=== PATIENT | male | born 1965 | race Caucasian/White ===

== ENCOUNTER 2021-02-26 06:05 | Emergency (ER) | payer BC, OTHER, SELFPAY ==
--- NOTE | ~2021-02-26 | XR_ITS ---
XR knee RT 3V DATE: 02/26/2021 06:30 INDICATION: Left knee pain TECHNIQUE: 4 views including crosstable lateral COMPARISON: None FINDINGS: There is evidence of mild suprapatellar knee joint effusion. No fracture or dislocation, periosteal reaction or bone destruction. Joint spaces are preserved. No r adiopaque intra-articular loose body or chondrocalcinosis. Prominent osteochondroma is noted in the medial diametaphyseal area of the distal femur. 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 IMPRESSION: Mild joint effusion Chronic stable osteochondroma of the medial diametaphyseal area of the distal f emur
[2021-02-26 06:03] VITALS: BP 123/88; PULSE 74; RESP 20; TEMP 36.4; O2SAT 100
--- NOTE | 2021-02-26 06:14 | ED.LOWEXIN ---
HPI - Extremity Injury (Lower) General Chief Complaint: Extremity Injury, Lower Stated Complaint: knee pain Time Seen by Provider: 02/26/21 06:09 History of Present Illness HPI Narrative: 55 yo male w/ h/o GILMA presents to the ED for a knee injury. He took a misstep while taking his dog out this morning and hyperextended his right knee. He fell to the ground and was not able to get himself up. He reports that the pain was 10/10. He received 4 mg morphine per EMS. On arrival the pain is improved, but still severe with movement. No additional pain or injury. Related Data Home Medications Medication Instructions Recorded Confirmed bupropion HCl 300 mg 24 hr tablet, 300 mg PO QAM 07/03/20 07/10/20 extended release clonazepam 0.5 mg tablet 0.5 mg PO BID tablet 07/10/20 07/10/20 duloxetine 30 mg PO DAILY 02/26/21 Allergies Allergy/AdvReac Type Severity Reaction Status Date / Time Penicillins Allergy Intermediate HIVES Verified 02/26/21 06:11 Review of Systems Review of Systems: All systems reviewed & are unremarkable except as noted in HPI and below Cardiovascular: Cardiovascular: Denies chest pain Respiratory: Respiratory: Denies dyspnea Gastrointestinal: Gastrointestinal: Denies nausea Musculoskeletal: Musculoskeletal: Denies back pain Psychiatric: Psychiatric: Reports anxiety PMFSH Past Medical History Medical History Intractable hiccups Family History Family History Father Hypertension Family history of genitourinary disease Family history of coronary artery disease Other Family history of gout Family history of malignant neoplasm Social History Social History Smoking status: Never smoker Second hand tobacco smoke exposure: No Alcohol intake: current Exam Const: General: healthy appearing, no acute distress and alert Orientation/consciousness: patient oriented x3 HENMT: Head: normal to inspection Resp: Effort & Inspection: normal respiratory effort Auscultation: clear to auscultation bilaterally Cardio: Rate: regular rate Rhythm: regular rhythm GI: GI Palp: Yes Soft to palpation and No Tenderness to palpation present (GI) Skin: General skin exam: normal color Wounds: no wounds Neuro: General: patient oriented x3, moves all extremities, no focal motor deficits and CN's II-XI intact bilaterally Extrem: Other: Tenderness at superior pole of the patella. No obvious deformity. Exam limited by pain. Psych: Affect: Anxious affect present Course Vital Signs Vital signs: Vital Signs Temperature 36.4 C L 02/26/21 06:03 Pulse Rate 74 02/26/21 06:03 Respiratory Rate 20 02/26/21 06:03 Blood Pressure 123/88 02/26/21 06:03 Pulse Oximetry 100 02/26/21 06:03 Temperature 36.4 C L 02/26/21 06:03 Pulse Rate 74 02/26/21 06:03 Respiratory Rate 20 02/26/21 06:03 Blood Pressure 123/88 02/26/21 06:03 Pulse Oximetry 100 02/26/21 06:03 Discharge Plan Discharge Clinical Impression: Acute internal derangement of knee Qualifiers: Laterality: right Qualified Code(s): M23.91 - Unspecified internal derangement of right knee Patient Disposition: Home, Self-Care Condition: Stable Instructions: Knee Sprain (ED) Prescriptions: New hydrocodone-acetaminophen 5-325 mg tablet 1 tablet PO Q6H PRN (Reason: pain) Qty: 10 RF: 0 cyclobenzaprine 10 mg tablet 10 mg PO TID PRN (Reason: muscle spasm) Qty: 20 RF: 0 No Action bupropion HCl [Wellbutrin XL] 300 mg tablet extended release 24 hr 300 mg PO QAM RF: 0 Hold Instructions: .Provider Order clonazepam 0.5 mg tablet 0.5 mg PO BID RF: 0 Hold Instructions: .Provider Order duloxetine 30 mg Capsule,Delayed Release(Dr/Ec) 30 mg PO DAILY RF: 0 Follow-up/Referrals: Guero Wharton Jr., MD [Primary
[2021-02-26 07:38] VITALS: BP 106/82; PULSE 79; RESP 16; O2SAT 99
== END 2021-02-26 07:35 | disposition home or self-care (01) ==
PROVIDERS: Emergency Provider Emergency Medicine; PCP Internal Medicine
DX: S83.207A Unspecified tear of unspecified meniscus, current injury, left knee, initial encounter (principal); D16.22 Benign neoplasm of long bones of left lower limb; X50.9XXA Other and unspecified overexertion or strenuous movements or postures, initial encounter
CPT/HCPCS: 73562; 99283

== ENCOUNTER → 2021-02-28 03:24 | Outpatient (CLI) | payer BC, SELFPAY ==
[2021-02-28 18:26] LABS: SARS-CoV-2 RNA PCR Negative
== END ==
PROVIDERS: PCP Internal Medicine; Visit Provider Orthopaedic Surgery
DX: Z01.812 Encounter for preprocedural laboratory examination (principal); Z20.822 Contact with and (suspected) exposure to COVID-19
CPT/HCPCS: C9803; U0003; U0005

== ENCOUNTER 2021-03-02 01:48 | Day surgery (SDC) | payer BC, OTHER, SELFPAY ==
[2021-02-27 13:44] VITALS: BMI 29.5
--- NOTE | 2021-02-28 12:12 | PM.IMHP ---
H&P: HPI History of Present Illness Date/Time: 02/28/21 12:12 55-year-old male patient of Dr Wharton who presents today for repair of his right quadriceps tendon rupture. He injured the quadriceps tendon on Friday of this week early in the morning. He was outside his house walking the dog. His foot fell off the edge of the sidewalk causing him to stumble full word. He states that he felt like his right knee hyperextended and he fell the ground excruciating pain. He was seen later that day in the office. After initial evaluation patient was sent for an MRI scan. MRI scan did confirm that patient has a high-grade tear of the right quadriceps tendon. He presents today for surgical repair of the tendon. 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 CPAP PTSD (post-traumatic stress disorder) <RAHEL Cabrales - Last Filed: 02/28/21 12:20> Family History Family History: Family History Father Hypertension Family history of genitourinary disease Family history of coronary artery disease Other Family history of gout Family history of malignant neoplasm <RAHEL Cabrales - Last Filed: 02/28/21 12:20> Social History Social History: Social History Smoking status: Never smoker Second hand tobacco smoke exposure: No Alcohol intake: current Drinks per week: 2 Substance use: never Substance use type: does not use Living arrangements: with family Spiritual care concerns: No <RAHEL Cabrales - Last Filed: 02/28/21 12:20> Meds Home Medications and Allergies Home medications: Home Medications Medication Instructions Recorded Confirmed Type bupropion HCl 300 mg 24 hr tablet, 300 mg PO DAILY 07/03/20 03/02/21 History extended release clonazepam 0.5 mg tablet 0.5 mg PO TID tablet 07/10/20 03/02/21 History cyclobenzaprine 10 mg PO TID PRN #20 tablet 02/26/21 02/27/21 Rx duloxetine 30 mg PO DAILY 02/26/21 03/02/21 History multivitamin 1 tablet PO DAILY 02/27/21 03/02/21 History acetaminophen 1,000 mg PO Q6H #90 cap 03/02/21 Rx cephalexin 500 mg PO Q6H #4 cap 03/02/21 Rx oxycodone 5 mg PO Q4H PRN #40 tablet 03/02/21 Rx polyethylene glycol 3350 [Miralax] 17 gm PO DAILY #30 each 03/02/21 Rx sennosides-docusate sodium [Senna 2 tab-cap PO BID PRN #120 cap 03/02/21 Rx Plus] <RAHEL Cabrales - Last Filed: 02/28/21 12:20> Allergies/Adverse reactions: Allergies Allergy/AdvReac Type Severity Reaction Status Date / Time No Known Allergies Allergy Verified 03/02/21 13:22 <RAHEL Cabrales - Last Filed: 02/28/21 12:20> Exam Narrative: Exam Narrative: 55-year-old male alert pleasant. He is 5 ft 8. he is in moderate distress due to pain in the knee. His pain is in the distal anterior 1/2 of the thigh. He is only able to flex the knee to about 30? and at that time complains of severe pain. He has moderate tenderness over the rectus femoris and severe tenderness over the distal quadriceps tendon. This area is soft on palpation. He has a mild effusion in the knee itself. No significant mediolateral joint line tenderness in the knee. Hip range of motion causes him no discomfort. He has intact sensation to the right foot. He has good pedal pulses in the foot. No edema in the calf. <RAHEL Cabrales Last Filed: 02/28/21 12:20> Resp: Auscultation: clear to auscultation bilaterally <RAHEL Cabrales - Last Filed:
--- NOTE | 2021-03-01 09:53 | WPDANESEPPF ---
Anes - Initial Pre Proc Eval Procedure: Operation Date: 03/02/21 13:00 Proposed Procedures p Right Quadriceps Tendon Rupture Repair - Gregory Blackwell MD Date/Time: 03/01/21 09:53 Surgeon: Gregory Blackwell MD Pre Op Diagnosis: right quadricep tendon rupture Patient Data Age: 55 Gender: M Height: 1.75 m Weight: 90.7 kg Allergies Allergy/AdvReac Type Severity Reaction Status Date / Time Penicillins Allergy Intermediate HIVES Verified 02/27/21 13:42 Home Medications Medication Instructions Recorded Confirmed Type bupropion HCl 300 mg 24 hr tablet, 300 mg PO DAILY 07/03/20 02/27/21 History extended release clonazepam 0.5 mg tablet 0.5 mg PO TID tablet 07/10/20 02/27/21 History cyclobenzaprine 10 mg PO TID PRN #20 tablet 02/26/21 02/27/21 Rx duloxetine 30 mg PO DAILY 02/26/21 02/27/21 History hydrocodone-acetaminophen 1 tablet PO Q6H PRN #10 tablet 02/26/21 02/27/21 Rx multivitamin 1 tablet PO DAILY 02/27/21 02/27/21 History Patient hx anesthesia problems: none Family hx anesthesia problems: none PMFSH Past Medical History Medical History (Updated 03/01/21 @ 09:59 by Sal Wong MD) Anxiety Back pain Depression Intractable hiccups CJ on CPAP PTSD (post-traumatic stress disorder) Family History Family History Father Hypertension Family history of genitourinary disease Family history of coronary artery disease Other Family history of gout Family history of malignant neoplasm Social History Social History Smoking status: Never smoker Second hand tobacco smoke exposure: No Alcohol intake: current Drinks per week: 2 Substance use: never Substance use type: does not use Living arrangements: with family Spiritual care concerns: No Anes - Eval Final PreProcedure Day of Procedure 03/01/21 09:53 Patient weight: overweight Heart: regular rate and rhythm Lungs: clear to auscultation and normal air movement Airway: Mallampati scale class II Neurological: alert and oriented Last oral intake: >/= 8 hours ASA classification: II Emergent: no Anesthetic plan: proceed Anesthesia type and monitoring: general LMA Informed Consent: The patient's anesthetic plan and its attendant risks and benefits were discussed with the patient/family/POA. Questions were solicited and answers provided to the satisfaction of the patient/family/POA.
[2021-03-02] VITALS (9 sets, daily range): BP systolic 108–122; BP diastolic 77–89; PULSE 86–100; RESP 13–25; TEMP 36.6–37.7; O2SAT 92–97
[2021-03-02] MEDS: LACTATED RINGERS 1,000 ML 30 ML IV CONT ×2 (11:54→15:57)
[2021-03-02] MEDS: ACETAMINOPHEN 500 MG TABLET 1000 MG PO (11:55)
[2021-03-02] MEDS: KETOROLAC 15 MG/ML VIAL (*BKC) IV PUSH (11:55)
--- NOTE | 2021-03-02 13:07 | WPDHPUPDATE1 ---
History and Physical Update Update Date/Time: 03/02/21 13:07 History and Physical has been reviewed, including an updated exam of the patient. There are NO changes in the patient's condition. Risks, benefits, and alternatives have been discussed and questions answered. Patient agrees to proceed with procedure.
--- NOTE | 2021-03-02 13:26 | WPDANESPNB ---
Anes - Peripheral Nerve Block Date/Time: 03/02/21 13:26 I have discussed with the patient/family/POA the placement of a peripheral nerve block for post-operative pain management, including associated risks, benefits, complications, and side effects. Alternative methods of post-operative analgesia were detailed. Questions were solicited and answers provided to the satisfaction of the patient/family/POA. Time-Out: A pre-procedural Time-Out was completed immediately before starting the procedure and confirmed: Patient Identification, Site, Procedure, Patient Position and the Availability of Requisite Equipment. Clinical Indications: Acute post-operative pain management requested by the operative surgeon. Nerve Block Insertion Note Anes-nerve block: femoral right Patient position: supine Skin prep: chlorhexidine Needle: 22 gauge, stimulating, insulated echogenic needle. Needle length: 80 mm Technique: ultrasound (in plane) Injectate: bupivacaine 0.5% with epi 5 mcg/ml (20cc) Observations: tolerated well Complications: none Procedure start time:: 1320 Procedure end time:: 1325
[2021-03-02] MEDS: ceFAZolin 2 GM/D5W 50 ML 2 GM/50 ML BAG IVPB (13:30)
[2021-03-02] MEDS: ceFAZolin SODIUM 1 GM VIAL IRRIGATION (14:58)
[2021-03-02] MEDS: ceFAZolin SODIUM 1 GM VIAL IV PUSH (15:19)
--- NOTE | 2021-03-02 15:43 | PM.PROC ---
Procedure Note - Detailed Date of procedure: 03/02/21 Pre-op diagnosis: right quadricep tendon rupture Post-op diagnosis: same Procedure performed: Repair right quadriceps tendon avulsion Description of procedure: Patient was brought to the operating room and Gent as general anesthesia was administered. He received a g of Ancef preoperatively. The right leg was prepped draped usual fashion all the skin covered with Ioban. A 6 in longitudinal incision was made from about half of an inch distal to the inferior pole of the patella to 3 in proximal to the superior pole of the patella. Dissection was carried down through the subcutaneous fat into the tendon rupture. The anterior fascia was torn and the quadriceps tendon was avulsed from its insertion at the anterior aspect of the patella at about the junction of the proximal 1/4 3 force. There was a 4 mm thick deep portion of the quadriceps tendon remained attached this was about 2 cm in width involving the vastus intermedius layer and although the anterior 2 layers were retracted proximally a little bit and were delaminated from the deep layer, on careful retraction of the deep layer and probing, I did not feel the deep layer was detached but rather was attached to the quadriceps tendon about 3 in proximally just proximal to the delamination site. I elected to keep that in place and repaired the anterior 2/3 of the biceps tendon back to the anterior insertion on the patella. We exposed the bone at the anterior insertion making a 5 mm wide band the with of the superior pole patella scraping this cleaned of soft tissue with a 15 blade scalpel and making multiple shallow leanne holes with a 2 mm bur for bone bleeding and to optimize the healing response. We passed 3 2.7 mm drill holes from this trough distally through the patella in out the inferior pole. We used a guide wire cannulated drill system from the 4.0 cannulated screw set to accomplish this. We then used 2 5. Fiber wires and made to baseball whipstitch strings of interlocking stitches 5 D going proximally and back for the medial 1/2 the tendon and then the same for the lateral 1/2 of the tendon. The center midline limb from each of the pairs of stitches was passed through from proximal distal the center drill hole in the patella and then the medial and lateral were passed through the medial and lateral drill holes respectively. We had made a 1/2 cm longitudinal split in the patellar tendon at the inferior pole without disrupting any the patellar tendon fibers and the 5. Ethibond were tied at the inferior pole of patella deep to the patellar tendon than the slit the patellar tendon reapproximated with 2. Vicryl. This allowed us to reapproximate the anterior surface of the patellar tendon to the tissue on the remaining anterior patella and when this was completed with 2. Vicryl is a we flexed the knee up and allow gravity to flex the knee to 120? with no gapping or separation at the repair. The U shaped split the medial and lateral retinaculum was closed with 2. Ethibond and 2. Vicryl respectively. The wound had been irrigated repeatedly with Ancef solution. The skin was closed 2 subcutaneous Vicryl through subcuticular Monocryl and glue EBL was 50 cc. Third g Ancef given time wound closure. There are no complications. A Mepilex dressing was applied he was placed in the knee brace locked in full extension. Implants: Sutures only Anesthesia: GLMA Surgeon: Gregory Blackwell MD Sleeping Car Service Attendant: Chioma Abel Estimated blood loss (mL): 50 Drains: No Packing: No Pathology: none sent Complications: No immediate complications Condition: stable Disposition: PACU
== END 2021-03-02 17:53 | disposition home or self-care (01) ==
PROVIDERS: PCP Internal Medicine; Visit Provider Orthopaedic Surgery
PROC: (CPT 27385; principal; 2021-03-02 13:00)
DX: S76.111A Strain of right quadriceps muscle, fascia and tendon, initial encounter (principal); G89.18 Other acute postprocedural pain; F41.8 Other specified anxiety disorders; G47.33 Obstructive sleep apnea (adult) (pediatric); F43.10 Post-traumatic stress disorder, unspecified; W10.1XXA Fall (on)(from) sidewalk curb, initial encounter; Y93.K1 Activity, walking an animal; Y92.480 Sidewalk as the place of occurrence of the external cause
CPT/HCPCS: 27385; 64447; A9270; C9803; J0690; J1100; J1170; J1885; J2250; J2405; J2704; J3010; J7120; L1830; U0003; U0005

== ENCOUNTER → 2022-03-14 14:33 | Outpatient (CLI) | payer BC, OTHER, SELFPAY ==
--- NOTE | ~2022-03-14 | MR_ITS ---
EXAMINATION: MR wrist RT wo con DATE: 03/14/2022 15:24 INDICATION: Right wrist pain and limited range of motion TECHNIQUE: Magnetic resonance imaging (MRI) of the right wrist was performed without intravenous cont rast. Sequences performed include axial PD-weighted FSE and PD-weighted FS FSE, coronal PD-weighted F S FSE and T1-weighted SE, and sagittal PD-weighted FS FSE and PD-weighted FSE. COMPARISON: None FINDINGS: Intrinsic ligaments: The scapholunate and lunotriquetral ligaments are normal. Triangular fibrocartilage complex (TFCC): The triangular fibrocartilage including its foveal and styloid attachments as well as the dorsal and volar radioulnar ligaments are normal. Mild increased signal at the distal aspect of the lunotriquetr al ligament suspicious for partial tear. The extensor carpi ulnaris tendon sheath is normal. Extensor wrist: Mild extensor carpi ulnaris tendinopathy with longitudinal split tear of the extensor carpi ulnaris t endon extending approximately 1 cm proximal and 2 cm distal to the level of the tip of the ulnar styl oid process. Small amount of fluid consistent with mild tenosynovitis extending along the distal aspe ct of the normal extensor carpi radialis longus and brevis tendons. Extensor tendons of the wrist are otherwise normal. Flexor wrist: The flexor tendons of the wrist are normal. No abnormality in the carpal tunnel with normal median n erve. Guyon's canal: Guyon's canal including the ulnar nerve and artery are normal. Bones/other: Bone alignment is normal. No fracture. Mild osteoarthritis at the triscaphe and first carpal metacarp al joints as well as at the articulation between the capitate and the trapezium. Multiloculated gangl ion cyst measuring 11 x 9 x 5 mm positioned along the volar rim of the radial styloid process and jie ented along the axis of the radius scapholunate ligament. IMPRESSION: 1. Mild tendinopathy and longitudinal split tear of the extensor carpi ulnaris tendon. 2. Mild polyarticular osteoarthritis at the radioscaphoid, triscaphe, first carpometacarpal and capit ate trapezoid articulations. 3. Mild tenosynovitis surrounding along the distal aspect of the normal extensor carpi radialis longu s and brevis tendons. Reviewed, dictated and finalized at location A. IMPRESSION: 1. Mild tendinopathy and longitudinal split tear of the extensor carpi ulnaris tendon. 2. Mild polyarticular osteoarthritis at the radioscaphoid, triscaphe, first car pometacarpal and capitate trapezoid articulations. 3. Mild tenosynovitis surrounding along the distal aspect of the normal extenso r carpi radialis longus and brevis tendons.
== END ==
PROVIDERS: PCP Internal Medicine; Visit Provider Orthopaedic Surgery Hand Surgery
DX: M19.031 Primary osteoarthritis, right wrist (principal)
CPT/HCPCS: 73221

== ENCOUNTER → 2022-04-30 08:32 | Outpatient (CLI) | payer BC, OTHER, SELFPAY ==
--- NOTE | ~2022-04-30 | MR_ITS ---
EXAMINATION: MR shoulder RT wo con DATE: 04/30/2022 09:15 INDICATION: Right shoulder pain TECHNIQUE: Magnetic resonance imaging (MRI) of the right shoulder was performed without intravenous c ontrast. Sequences included axial PD-weighted FS FSE, coronal oblique PD-weighted FS FSE, coronal obl ique T2-weighted FS FSE, sagittal PD-weighted FS FSE, and sagittal T1-weighted SE. COMPARISON: None. FINDINGS: Coracoacromial arch: The acromion undersurface is curved in morphology (type II). The coracoacromial ligament is normal. M ild acromioclavicular osteoarthritis. Rotator cuff: Mild supraspinatus and infraspinatus tendinopathy. There is a partial-thickness articular sided tear extending 12 mm AP along the middle facet footplate of the infraspinatus tendon and the conjoined por tion of the supraspinatus and infraspinatus tendons. The tear involves up to 1/2-2/3 of the tendon th ickness without medial retraction. The teres minor tendon is normal. Minimal subscapularis tendinopat hy without discrete tear. Normal rotator cuff muscle bulk and signal. Biceps tendon, glenoid labrum and glenohumeral cartilage: Long head of the biceps tendon is normal. There is a tear of the 1:00-10:00 position of the superior to posterior superior glenoid labrum. Mild partial-thickness cartilage loss at the glenoid with kristen h chondral surface. There is additional partial thickness humeral cartilage loss most prominent along the posterior inferior aspect of the humeral head. Fluid: Physiologic amount of fluid in the glenohumeral joint and biceps tendon sheath. No loose osteochondr al bodies. Mild increased fluid signal in the subacromial/subdeltoid bursa consistent with minimal bu rsitis. Bones: Normal marrow signal with no fracture or pathologic marrow replacing process. Mild cystic change at t he greater tuberosity. IMPRESSION: 1. Mild supraspinatus and infraspinatus tendinopathy with small moderate severity partial-thickness a rticular sided tear of the anterior infraspinatus tendon and conjoined portion of the supraspinatus a nd infraspinatus tendons. 2. Mild right glenohumeral osteoarthritis with tear at the superior to posterior superior glenoid lab rum. 3. Mild acromioclavicular osteoarthritis. Reviewed, dictated and finalized at location B. IMPRESSION: 1. Mild supraspinatus and infraspinatus tendinopathy with small moderate severi ty partial-thickness articular sided tear of the anterior infraspinatus tendon and conjoined portion of the supraspinatus and infraspinatus tendons. 2. Mild right glenohumeral osteoarthritis with tear at the superior to posterio r superior glenoid labrum. 3. Mild acromioclavicular osteoarthritis.
== END ==
PROVIDERS: PCP Internal Medicine; Visit Provider Orthopaedic Surgery
DX: M19.011 Primary osteoarthritis, right shoulder (principal)
CPT/HCPCS: 73221

== ENCOUNTER 2023-08-25 02:56 | Day surgery (SDC) | payer BC, OTHER, SELFPAY ==
[2023-08-19 13:52] VITALS: BMI 30.2
[2023-08-25 10:28] VITALS: BP 114/83; PULSE 91; RESP 16; TEMP 36.1; O2SAT 96
[2023-08-25] MEDS: LACTATED RINGERS 1,000 ML 150 ML IV CONT (10:37)
--- NOTE | 2023-08-25 10:49 | PM.HPGS ---
History of Present Illness History of Present Illness Consent: Risks, benefits, and alternatives have been discussed and questions answered. Patient agrees to proceed with procedure. Chief complaint: hx of colon polyps Narrative: Merrill Schilling is a 58 year old male Presents for screening colonoscopy. Patient's current weight appetite and bowel movements are normal. Patient denies abdominal pain. He has had no bleeding. Family history noncontributory. Old records reveal colonoscopy by Dr. Maico Rico in 2010 revealed a benign adenomatous colonl polyp. Patient states his current weight appetite bowel movements are normal. There has been no bleeding or abdominal pain. Review of Systems Review of Systems: Review of systems noncontributory. [facility] Past Medical History Medical History Anxiety Back pain Depression Intractable hiccups CJ on CPAP PTSD (post-traumatic stress disorder) Surgical History Surgical History H/O knee surgery Family History Family History Father Hypertension Mother Hypertension Depression Anxiety Thyroid disorder Sibling Thyroid disorder Grandparent Malignant neoplasm of prostate Other Family history of gout Family history of malignant neoplasm Social History Social History (Updated 06/05/23 @ 09:58 by PHI Novoa) Smoking status: Never smoker Second hand tobacco smoke exposure: No Alcohol intake: current Drinks per week: 3 Alcohol use details: seldom occasional Substance use: never Substance use type: does not use Lack of Transportation: No Lack of Food: Never True Current Housing: I Have Housing Concerned About Future Housing: No Difficulty Paying Gas/Electric Bills: No Difficulty Paying for Meds: No Currently Unemployed: No Education: Master's Degree or Higher Difficulty w/ Childcare or Family Care: No Living arrangements: with family Spiritual care concerns: No Meds Home Medications and Allergies Home Medications Medication Instructions Recorded Confirmed Type bupropion HCl 300 mg 24 hr tablet, 300 mg PO DAILY 07/03/20 08/25/23 History extended release (Wellbutrin XL) clonazepam 0.5 mg tablet 0.5 mg PO TID 07/10/20 08/25/23 History rijfuufm-cm-[id number] 300 mcg-K 60 1 tablet PO DAILY 06/13/21 08/25/23 History mcg-lycop 600 mcg-lutein 300 mcg tablet (Centrum Silver Ultra Men's) vortioxetine 10 mg tablet 10 mg PO DAILY 06/13/21 08/25/23 History (Trintellix) Allergies Allergy/AdvReac Type Severity Reaction Status Date / Time No Known Allergies Allergy Verified 08/25/23 10:27 Vital Signs Vital Signs - 24 hr 08/25/23 10:28 Temperature 96.9 F L Pulse Rate 91 Respiratory Rate 16 Blood Pressure 114/83 Pulse Oximetry 96 Oxygen Delivery Room Air Exam Narrative: Physical exam reveals patient to be alert. Vital signs stable. HEENT exam is unremarkable. Patient is anicteric. Lungs are clear to auscultation and percussion. Heart is without murmur or extra sounds. Abdomen bowel sounds are present soft nontender with no hepatosplenomegaly. Digital external rectal exam normal. Assessment and Plan Assessment and plan (1) History of colon polyps: Code(s): Z86.010 - Personal history of colonic polyps Status: Acute Assessment and Plan: Patient has a prior history of adenomatous colon polyp removed from the colon 2010. Plan for surveillance colonoscopy at this time. Further recommendations may be given after endoscopy.
--- NOTE | 2023-08-25 11:10 | WPDANESEPPF ---
Anes - Initial Pre Proc Eval Procedure: Operation Date: 08/25/23 11:30 Proposed Procedures p Screening Colonoscopy - Maico Plata MD Date/Time: 08/25/23 11:10 Surgeon: Maico Plata MD Pre Op Diagnosis: hx of colon polyps Patient Data Age: 58 Gender: M Height: 1.75 m Weight: 91.7 kg Last Vital Signs Temp 96.9 F L 08/25/23 10:28 Pulse 91 08/25/23 10:28 Resp 16 08/25/23 10:28 BP 114/83 08/25/23 10:28 Pulse Ox 96 08/25/23 10:28 O2 Del Method Room Air 08/25/23 10:28 Allergies Allergy/AdvReac Type Severity Reaction Status Date / Time No Known Allergies Allergy Verified 08/25/23 10:27 Home Medications Medication Instructions Recorded Confirmed Type bupropion HCl 300 mg 24 hr tablet, 300 mg PO DAILY 07/03/20 08/25/23 History extended release (Wellbutrin XL) clonazepam 0.5 mg tablet 0.5 mg PO TID 07/10/20 08/25/23 History [id number]-ay-rmpab 300 mcg-K 60 1 tablet PO DAILY 06/13/21 08/25/23 History mcg-lycop 600 mcg-lutein 300 mcg tablet (Centrum Silver Ultra Men's) vortioxetine 10 mg tablet 10 mg PO DAILY 06/13/21 08/25/23 History (Trintellix) Patient hx anesthesia problems: none Family hx anesthesia problems: none Results Review: All pre-operative results and documents have been reviewed as part of the pre-operative evaluation. 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 PTSD (post-traumatic stress disorder) Surgical History Surgical History H/O knee surgery Family History Family History Father Hypertension Mother Hypertension Depression Anxiety Thyroid disorder Sibling Thyroid disorder Grandparent Malignant neoplasm of prostate Other Family history of gout Family history of malignant neoplasm Social History Social History (Updated 06/05/23 @ 09:58 by Giuliana Grimes, [facility]) Smoking status: Never smoker Second hand tobacco smoke exposure: No Alcohol intake: current Drinks per week: 3 Alcohol use details: seldom occasional Substance use: never Substance use type: does not use Lack of Transportation: No Lack of Food: Never True Current Housing: I Have Housing Concerned About Future Housing: No Difficulty Paying Gas/Electric Bills: No Difficulty Paying for Meds: No Currently Unemployed: No Education: Master's Degree or Higher Difficulty w/ Childcare or Family Care: No Living arrangements: with family Spiritual care concerns: No Anes - Eval Final PreProcedure Day of Procedure 08/25/23 11:10 Patient weight: normal Heart: regular rate and rhythm Lungs: clear to auscultation Airway: Mallampati scale class II Neurological: alert and oriented Last oral intake: >/= 8 hours ASA classification: II Emergent: no Anesthetic plan: proceed Anesthesia type and monitoring: general GIVS and standard monitoring Results Review: All pre-operative results and documents have been reviewed as part of the pre-operative evaluation. Informed Consent: The patient's anesthetic plan and its attendant risks and benefits were discussed with the patient/family/POA. Questions were solicited and answers provided to the satisfaction of the patient/family/POA.
[2023-08-25 11:31] VITALS: BP 101/74; PULSE 82; RESP 14; O2SAT 94
[2023-08-25 11:41] VITALS: BP 108/71; PULSE 77; RESP 20; O2SAT 98
== END 2023-08-25 12:05 | disposition home or self-care (01) ==
PROVIDERS: PCP Family Medicine; Visit Provider Internal Medicine Gastroenterology
PROC: 0DJD8ZZ Inspection of Lower Intestinal Tract, Via Natural or Artificial Opening Endoscopic (ICD-10-PCS; CPT 45378; principal; 2023-08-25 11:30)
DX: Z12.11 Encounter for screening for malignant neoplasm of colon (principal); D12.4 Benign neoplasm of descending colon; K64.8 Other hemorrhoids; G47.33 Obstructive sleep apnea (adult) (pediatric); F43.10 Post-traumatic stress disorder, unspecified; F41.9 Anxiety disorder, unspecified; F32.A Depression, unspecified
CPT/HCPCS: 45385; 88305; J2704; J7120

== ENCOUNTER 2024-02-20 14:32 | Outpatient (CLI) | payer BC, OTHER, SELFPAY | END 2024-02-20 14:33 | disposition home or self-care (01) | LOC: ANHAUDIO 14:33 | PROVIDERS: PCP Family Medicine; Visit Provider Family Medicine | DX: H90.3 Sensorineural hearing loss, bilateral (principal) | CPT/HCPCS: 92557; 92567 ==

== ENCOUNTER 2024-10-13 16:28 | Outpatient (CLI) | payer BC, OTHER, SELFPAY ==
--- NOTE | ~2024-10-13 | XR_ITS ---
XR cervical spine 4-5V Ordering provider: Charles Nguyen MD History: . M54.2 - Cervicalgia . Comparison: None. FINDINGS: VERTEBRAL BODIES: Normal height and alignment. No visible fracture or subluxation. The dens is intact . DISK SPACES: Severe narrowing of the disc C3-C4, C4-C5, C5-C6 and C6-C7. Narrowing of the foramina is seen in the lower cervical area. Multilevel uncovertebral joint osteoarthritic changes. PARASPINOUS SOFT TISSUES: No prevertebral soft tissue swelling. IMPRESSION: No acute osseous abnormality cervical spine. Multilevel degenerative disc disease. Reviewed, dictated and finalized at location A. 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
== END 2024-10-13 16:29 | disposition home or self-care (01) ==
LOC: MICIMG 16:29
PROVIDERS: PCP Family Medicine; Visit Provider Family Medicine
DX: M50.30 Other cervical disc degeneration, unspecified cervical region (principal)
CPT/HCPCS: 72050

== ENCOUNTER 2024-12-08 15:30 | Outpatient (RCR) | payer BC, OTHER, SELFPAY ==
--- NOTE | 2024-11-05 11:58 | OPREHPOC ---
Outpatient Therapy Plan of Care This is a Multidisciplinary Plan of Care that may contain components documented by all disciplines (PT, OT, and ST.) PT Problem 1 PT Problem #1 Knowledge Deficit PT Goal 1 Goal / Goal Update *indep with HEP Target Visit 8 PT Problem 2 PT Problem #2 Pain PT Goal 1 Goal / Goal Update *decrease pain rating of neck to 3/10 at worst Target Visit 8 PT Goal 2 Goal / Goal Update * pt report headaches 50% of the day Target Visit 8 PT Problem 3 PT Problem #3 Impaired Flexibility PT Goal 1 Goal / Goal Update * increase cervical rotation to R and L, to improve driving and activities at home rotation to R 45' and L 50' Target Visit 8 PT Problem 4 PT Problem #4 Impaired Strength PT Goal 1 Goal / Goal Update increase scapular - thoracic strength: pt stand with shoulders in correct posture Target Visit 8
--- NOTE | 2024-11-05 11:58 | PTOPEVAL1 ---
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 Reported Pain Level Pain Score Self Report Additional Pain Score Comments pain range in the past week 4-5/10; upper cervical and headaches over back of head to top of head and forehead have headaches all day long, last all day; increase pain: looking up, decrease pain: tylenol, heat, sleeping: previously on stomach, now have to sleep on sides Assessment PT Clinical Summary Jacek has the diagnosis of cervicalgia. He reports chronic issues with neck pain, but increased and now having constant, daily headaches Self assessment Neck Index rating of 30% limitation in activity level. His medical history includes chronic back, R shoulder pain from previous injury to shoulder with rotator cuff tear/non surgical. He is active and able to do all of his usual tasks but more pain. With the evaluation: decreased cervical rotation to R and L with all cervical motions painful; slightly rounded shoulder posture with flat cervical and thoracic spine. Skilled PT services are indicated for modalities to decrease pain and spasms; therapeutic exercises to increase flexibility of cervical spine and musculature with strengthening over scapular and education for HEP and posture. Plan of Care Interventions Electrical Stimulation,Hot Pack/Cold Pack,Manual Therapy,Mechanical Traction,Neuro Re-education, Patient/Caregiver Education,Therapeutic Activities ,Therapeutic Exercise,Ultrasound,Other Other Interventions taping, dry needling PT Services Indicated Yes Treatment Frequency and 1-2 x/wk for 8 visits Duration These treatments will address the objective and functional deficits as defined above. The patient will be advanced safely and appropriately in order for the patient to progress towards his/her prior level of function. Additional exercises will be introduced and as well as a comprehensive home exercise program upon discharge, if needed, ?to ensure carryover of functional gains achieved in the clinic. This treatment plan has been reviewed and agreement upon by the patient.
--- NOTE | 2024-12-01 08:24 | PCPTNOTE ---
Pt canceled stating he is unable to make it today.
--- NOTE | 2025-01-18 10:42 | PTOPDC ---
Assessment and note entered by Constance Walls, PT Assessment Status Discharge - Pt Not Present ICD-10 Condition Codes (PT) Cervicalgia M54.2 Onset May 2024 Subjective Information pt was not seen this date. Assessment PT Clinical Summary Jacek has received the PT evaluation on Nov 05 and 4 treatment sessions, to December 08. He did not return for any additional sessions. Discharge PT. The goals were not addressed. Plan of Care PT Services Indicated No
== END 2025-01-18 12:24 | disposition home or self-care (01) ==
LOC: ANHPT 15:30
PROVIDERS: PCP Family Medicine; Visit Provider Family Medicine
DX: M54.2 Cervicalgia (principal)
CPT/HCPCS: 97012; 97014; 97110; 97140; 97161; 97530; G0283

== ENCOUNTER 2025-01-12 16:09 | Emergency (ER) | payer BC, OTHER, SELFPAY ==
[2025-01-12 16:19] VITALS: BP 164/101; PULSE 70; RESP 18; TEMP 36.1; O2SAT 99
--- NOTE | 2025-01-12 16:31 | ED.GENADULT ---
HPI - General Adult General Chief complaint: Eye Problems Stated complaint: eye pain Source: patient Mode of arrival: ambulatory Limitations: no limitations History of Present Illness HPI narrative: Pt presents for evaluation of left eye irritation. patient symptom onset yesterday. His initial symptom was tearing. He has since developed redness, photophobia, blurred vision and headache. He states the pain left eye is almost unmanageable. He does not provide me with a descriptive quality of the pain. Tylenol has not helped. He does not were contacts or glasses. He has associated rhinorrhea. He denies any matting in the left eye and denies any symptoms whatsoever in the right eye. He has a history of headaches but current symptoms are not consistent with previous headaches. He states pain starts in the left eye and then moves backwards through the frontal, parietal regions of the head and into the occipital region. No known exposures to pinkeye. Related Data Home Medications ?Medication ?Instructions ?Recorded ?Confirmed ?Last Taken ?Type bupropion HCl 300 mg 24 hr tablet, 300 mg PO DAILY 07/03/20 08/25/23 08/23/23 History extended release (Wellbutrin XL) hlvgyfrv-wv-zxcho 300 mcg-K 60 1 tablet PO DAILY 06/13/21 08/25/23 08/23/23 History mcg-lycop 600 mcg-lutein 300 mcg tablet (Centrum Silver Ultra Men's) escitalopram oxalate 20 mg tablet mg PO 10/13/24 Unknown History atomoxetine 25 mg capsule mg PO 01/12/25 Unknown History Allergies Allergy/AdvReac Type Severity Reaction Status Date / Time No Known Allergies Allergy Verified 01/12/25 16:19 Review of Systems Review of Systems: CONSTITUTIONAL: Denies fever, chills, or sweats. EYES:Reports left eye pain, tearing, redness, photophobia and blurred vision. ENT: Reports rhinorrhea. Denies congestion, sore throat, or otalgia. CARDIOVASCULAR: Denies chest pain, palpitations, or edema. RESPIRATORY: Denies cough or dyspnea. GASTROINTESTINAL: Denies abdominal pain, nausea, vomiting, or diarrhea. GENITOURINARY: Denies dysuria or hematuria. SKIN: Denies rash or itching. MUSCULOSKELETAL: Denies back pain, joint pain, or myalgia. NEUROLOGIC: Reports headache. Denies numbness, dizziness, or weakness. PSYCHIATRIC: Denies anxiety or depression. [facility] Past Medical History Medical History PTSD (post-traumatic stress disorder) Depression Anxiety Back pain CJ on CPAP Intractable hiccups Surgical History Surgical History H/O knee surgery Family History Family History Father Hypertension Mother Hypertension Depression Anxiety Thyroid disorder Sibling Thyroid disorder Grandparent Malignant neoplasm of prostate Other Family history of gout Family history of malignant neoplasm Social History Social History Smoking status: Never smoker Second hand tobacco smoke exposure: No Alcohol intake: current Drinks per week: 3 Alcohol use details: seldom occasional Substance use: never Substance use type: does not use Lack of Transportation: No Lack of Food: Never True Current Housing: I Have Housing Concerned About Future Housing: No Difficulty Paying Gas/Electric Bills: No Difficulty Paying for Meds: No Currently Unemployed: No Education: Master's Degree or Higher Difficulty w/ Childcare or Family Care: No Living arrangements: with family Spiritual care concerns: No Exam Narrative: GENERAL: Well-appearing, well-nourished, and in no acute distress. HEAD: Normocephalic, atraumatic. EYES: pupils are equal round reactive to light and accommodation. There is left conjunctival injection with tearing present. There is a white opacity noted with fluorescein and Wood's lamp evaluation in the left eye at approximately 4 o'clock position adjacent to iris ENT: Nares clear, no rhinorrhea or epistaxis. Mucous membranes moist. Oropharynx without tonsillar hypertrophy exudate or other lesions. Bilateral TMs pearly may nonbulging NECK: Supple. No adenopathy or masses. No carotid bruits or JVD CHEST: Clear to auscultation. No respiratory distress. No wheezes rales or rhonchi HEART: Regular rate and rhythm. No murmur heard. Normal peripheral pulses. ABDOMEN: Soft, nontender, nondistended, normal active bowel sounds. EXTREMITIES: Normal range of motion. No edema. SKIN: Warm, dry, no rash. NEURO: No focal deficits. Alert and oriented x3. PSYCH: Normal mood and affect. Course Course Emergency Course: this is a 59-year-old male who presented for evaluation of left eye pain. I did not appreciate ecchymosis or hyphema on exam. Initial consideration was for allergic conjunctivitis however he only had tearing on the left. Given the presence of pain with inability to check pressures on site, I contacted [facility]. I spoke with end finder twisting department, Dr. Woods, who indicated her team could assess the patient here transferred to the emergency department at [facility]. I was advised that Dr. Kat accepted pt to the ER by BRIDGET Cardenas with transfer center. Patient opted to be transferred via private vehicle. Level of Care: Express Care Visit Vital Signs Vital signs: Vital Signs Temperature 36.1 C L 01/12/25 16:19 Pulse Rate 70 01/12/25 16:19 Respiratory Rate 18 01/12/25 16:19 Blood Pressure 164/101 H 01/12/25 16:19 Pulse Oximetry 99 01/12/25 16:19 Oxygen Delivery Room Air 01/12/25 16:19 Temperature 36.1 C L 01/12/25 16:19 Pulse Rate 69 01/12/25 17:11 Respiratory Rate 18 01/12/25 16:19 Blood Pressure 184/99 H 01/12/25 17:11 Pulse Oximetry 99 01/12/25 16:19 Oxygen Delivery Room Air 01/12/25 16:19 Medical Decision Making Vital Signs Vital Signs: Vital Signs Temperature 36.1 C L 01/12/25 16:19 Pulse Rate 70 01/12/25 16:19 Respiratory Rate 18 01/12/25 16:19 Blood Pressure 164/101 H 01/12/25 16:19 Pulse Oximetry 99 01/12/25 16:19 Oxygen Delivery Room Air 01/12/25 16:19 Temperature 36.1 C L 01/12/25 16:19 Pulse Rate 69 01/12/25 17:11 Respiratory Rate 18 01/12/25 16:19 Blood Pressure 184/99 H 01/12/25 17:11 Pulse Oximetry 99 01/12/25 16:19 Oxygen Delivery Room Air 01/12/25 16:19 Discharge Plan Discharge Clinical Impression: Acute left eye pain, Headache Patient Disposition: Acute Care Hospital Condition: Stable Patient Language: Pakistani Prescriptions: No Action atomoxetine 25 mg capsule PO bupropion HCl [Wellbutrin XL] 300 mg tablet extended release 24 hr 300 mg PO DAILY Centrum Silver Ultra Men's 300-600-300 mcg tablet 1 tablet PO DAILY escitalopram oxalate 20 mg tablet PO mirabegron [Myrbetriq] 25 mg tablet extended release 24 hr 25 mg PO DAILY Qty: 30 0RF Follow-up/Referrals: Charles Nguyen MD [Primary Care Provider] - Time of Disposition: 17:51
[2025-01-12] MEDS: DACRIOSE EYE IRRIGATION 118 ML BOTTLE LEFT EYE (16:32)
[2025-01-12] MEDS: TETRACAINE HCL 0.5% OPHTH SOLN 4 ML BTL LEFT EYE (16:33)
[2025-01-12] MEDS: FLUORESCEIN SOD 1 MG/STRIP LEFT EYE (16:33)
[2025-01-12 17:11] VITALS: BP 184/99; PULSE 69
--- OUTSIDE RECORDS SUMMARY | 2025-01-12 17:33 | XMS_ITS ---
Author Organization [facility] [place] Address [address] [place] [address] Care Team Providers Care Green End Man Name Role Phone Charles Nguyen MD Primary Care Provider Kendy Bansal Unavailable [phone] Allergies Allergen (clinical drug ingredient) Drug/Non Drug Allergy documented on EMR Reaction Allergy Type Onset Date Status Substance with penicillin structure and antibacterial mechanism of action (substance) Penicillins Unknown Drug Allergy 03/25/2024 Active REASON FOR VISIT christine pt transfer Medications Medication SIG (Take, Route, Frequency, Duration) Notes Start Date End Date Status hydrOXYzine Pamoate 25 MG 1 capsule Oral three times a day for 30 days As needed Active Atomoxetine HCl 25 MG 1 capsule Oral onc e a day for 30 days 12/07/2024 02/05/2025 Active Escitalopram Oxalate 20 MG 1 tablet Oral ly Once a day for 30 days Active buPROPion HCl ER (XL) 150 MG 1 tablet in the morning Orally Once a day for 30 days Active Magnesium 300 MG 1 capsule Orally onc e at night. Active Propranolol HCl 10 MG 1 tablet Orally tw ice a day for 30 days Active Social History Tobacco Use: Social History Observation Description Date Details (start date - stop date) Never Smoker NA - NA Sex Assigned At : Social History Observation Description Sex Assigned At Male Tobacco Control (Standard) Question Answer Notes Tobacco use: Nonsmoker AUDIT-C (Standard) Question Answer Notes Did you have a drink contain ing alcohol in the past year? Yes How often did you have six o r more drinks on one occasion in the past year? Never (0 point) How many drinks did you have on a typical day when you were drinking in the past year? 1 or 2 drinks (0 point) How often did you have a dri nk containing alcohol in the past year? 2 to 4 times a month (2 points) Problems Problem Type SNOMED Code ICD Code Onset Dates Problem Status W/U Status Risk Notes Problem Attention deficit hyperactivity disorder (882960201) ADHD (attention deficit hyperactivity disorder), combined type (F90.2) Active confirmed Encounters Encounter Location Date Provider Diagnosis [facility] [employer] [address] [facility] [address] [place] [address] 12/07/2024 Kendy Espinal Generalized anxiety disorder F41.1 ; Major depressive disorder, recurrent, moderate F33.1 and ADHD (attention deficit hyperactivity disorder), combined type F90.2 Assessments Encounter Date Diagnosis (ICD Code) Assessment Notes Treatment Notes Treatment Clinical Notes Section Notes 12/07/2024 Generalized anxiety disorder (ICD-10 - F41.1) 12/07/2024 Major depressive disorder, recurrent, moderate (ICD-10 - F33.1) 12/07/2024 ADHD (attention deficit hyperactivity disorder), combined type (ICD-10 - F90.2) Discussed risks/benefits/al ternatives to atomoxetine, including GI side effects, weight loss, irritability, constipation, sexual dysfunction, increase in blood pressure and liver damage. Patient denies any h/o cardiovascular disease, including hypertension, tachyarrhythmias. 12/07/2024 Other Symptoms appear to be stemming from untreated ADHD-- Start atomoxetine 25mg daily for adhd management --discussed starting low dose due to also being on bupropion. ---plan to decrease amount of medications as much as possible, monitor response and tolerability to atomoxetine, once adhd better managed can consider tapering off of escitalopram or wellbutrin. Patient educated on all medications including potential benefits, side effects, risks. Educated on proper dosing schedule and importance of compliance. Previous records reviewed -Assessment and treatment plan reviewed with patient. -Compliance with treatment plan importance discussed. -Discussed the risks/benefits of this medication -Discussed medication side effects. -Contact office if symptoms worsen. -Discussed that it can take up to 6-8 weeks to see full therapeutic effects of psychotropic medications. -Crisis prevention hotline 343. Plan Of Treatment Medication Medication Name Sig Start Date Stop Date Notes hydrOXYzine Pamoate 25 MG 1 capsule Oral three times a day for 30 days Atomoxetine HCl 25 MG 1 capsule Oral onc e a day for 30 days 12/07/2024 02/05/2025 Escitalopram Oxalate 20 MG 1 tablet Oral ly Once a day for 30 days buPROPion HCl ER (XL) 150 MG 1 tablet in the morning Orally Once a day for 30 days Treatment Notes Assessment Notes ADHD (attention deficit hype ractivity disorder), combined type Discussed risks/benefits/alternatives to atomoxetine, including GI side effects, weight loss, irritability, constipation, sexual dysfunction, increase in blood pressure and liver damage. Patient denies any h/o cardiovascular disease, including hypertension, tachyarrhythmias. Other Symptoms appear to be stemming from untreated ADHD-- Start atomoxetine 25mg daily for adhd management --discussed starting low dose due to also being on bupropion. ---plan to decrease amount of medications as much as possible, monitor response and tolerability to atomoxetine, once adhd better managed can consider tapering off of escitalopram or wellbutrin. Patient educated on all medications including potential benefits, side effects, risks. Educated on proper dosing schedule and importance of compliance. Previous records reviewed Next Appt Details Follow Up: 6 Weeks, Reason: medication follow up Provider Name:Kendy Espinal, 01/17/2025 04:30:00 PM, [address] [place] [address] [address] [facility], [facility] [address], [place], [address], Progress Notes * ANNEMARIE ANGUIANO ADOB:1965 (59 yo M)Acc No.[id number]:12/07/2024 Transfer Walkin patient Patient: Syd ANNEMARIE PACHECO Provider: CLEMENTE DOWNEYHNP :1965 A ge:59 Y S ex:Male Date:12/07/2024 Address:[address] [place], [place] [id number] Pcp:Charles Nguyen MD Subjective: * Chief Complaints: * P oteat pt transfer * HPI: H istory of Presenting Problem: Anxiety R ates anxiety 3/10 with 10 being most severe. Denies recent panic attacks. . D epression R ates depression 1/10 with 10 being most severe. Denies SI.. M ood lability n o hx jarett. P sychosis n o hx psychosis. S leep disturbance w ith a history of sleep apnea- CJ . S uicidal ideation d enies. Here for follow up, bridge patient from walk in clinic, previous pt of Dr Treviño. History of anxiety, depression. Recently tapered off of Trintellix and was started on escitalopram. Continues to have anxiety, I still feel wired . He is wondering about treating the ADHD. States he has trouble sitting still, difficulty relaxing, I am constantly moving , procrastination, excessive talking, irritability. Feels the anxiety is improved overall with the escitalopram. Denies panic attacks. Mood is fair, not feeling hopeless or helpless, no suicidal ideation. Sleep is fair, getting about 6 hours nightly. Energy is fair to low. Reports compliance with CPAP.? Appetite is good. P ast Psychiatric Hospitalizations: Previous psychiatric hospitalizations P revious Psychiatric Hospitalization N o. P ast History of Suicidal attempt H ave you ever attempted suicide in the past N o. Socialhx: . Two adult children. 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 Medical hx: borderline high cholesterol not on medication. Past psychiatric hx- Hx ECT/TMS/esketamine: Past IPBH admissions/IOP/PHP: none Previous suicide attempts: none Previous self-harming: denies Previous medications: trintellix, adderall, wellbutrin Supplements: daily multivitamin. [place]-Suicide Severity Rating Scale: Suicide Risk (CSRS-screener) i n the past one month Have you wished you were or wished you could go to sleep and not wake up? N o, i n the past one month Have you actually had any thoughts of killing yourself? N o, H ave you ever done anything, started to do anything, or prepared to do anything to end your life? N o. D epression screening: PHQ-9 L ittle interest or pleasure in doing things S everal days, F eeling down, depressed, or hopeless S everal days, T rouble falling or staying asleep, or sleeping too much N ot at all, F eeling tired or having little energy N early every day, P oor appetite or overeating N ot at all, F eeling bad about yourself or that you are a failure, or have let yourself or your family down N ot at all, T rouble concentrating on things, such as reading the newspaper or watching television S ever days, M oving or speaking so slowly that other people could have noticed; or the opposite, being so fidgety or restless that you have been moving around a lot more than usual N early every day, T houghts that you would be better off or of hurting yourself in some way N ot at all. I ntervention D epression Screening Findings N egative, S uicide Risk Assessment Performed . G AD-7 Anxiety: Over the last two weeks, how often have you been bothered by the following problems? 1 . Feeling nervous, anxious, or on edge 2 More than half the days, 2. Not being able to stop or control worrying 1 Several days, 3 . Worrying too much about different things 1 Several days, 4 . Trouble relaxing 2 More than half the days, 5. Being so restless that it is hard to sit still 3 Nearly every day, 6 . Becoming easily annoyed or irritable 0 Not at all, 7 . Feeling afraid, as if something awful might happen?0 Not at all. * ROS: P sychiatric: Patient denies s uicidal thoughts, jarett, psychosis, auditory / visual hallucinations, delusions, irritability, panic attacks. P atient complains of a nxiety, difficulty concentrating. Cheng SANCHEZ for details. * Medical History: * Surgical History: * Hospitalization/Major Diagno stic Procedure: * Family History: F ather: None. M aternal Aunt: None. M aternal Uncle: None. P aternal Aunt: None.?Paternal Uncle: None. M other: Anxiety Disorder. P aternal Grandfather: None. P aternal Grandmother: None. M aternal Grandfather: None. M aternal Grandmother: None. B rother: None. S ister: None. S on: None. D aughter: Anxiety Disorder. * Social History: T obacco Use: T obacco Control (Standard) T obacco use: N onsmoker. M igrated Social History: M igrated Social History: Alcohol Intake: Occasional 09/12/2020,Tobacco Years: Never smoker 09/12/2020. D rug/Alcohol: D rugs H ave you used drugs other than those for medical reasons in the past 12 months??No. C affeine I ntake: m ore than 4 cups per day. A REMIGIO-C (Standard) D id you have a drink containing alcohol in the past year? Y es, H ow often did you have six or more drinks on one occasion in the past year? N ever (0 point), H ow many drinks did you have on a typical day when you were drinking in the past year? 1 or 2 drinks (0 point), H ow often did you have a drink containing alcohol in the past year? 2 to 4 times a month (2 points).? M iscellaneous: O ccupation: [employer]. Safety issues A re there any firearms in the house? Y es. A dvance Care Planning A re you your own decision-maker Y es, D o you have Power of Surgery Nurse for Health or Medical? Y es. S ocial History: H elijah M arital Status: M arried, N umber of Adults in household: 2 , N umber of Children in Household: 0 , L evel of Education: [email or web address]/Masters/PhD. * Medications: T akingEscitalopram Oxalate 20 MG Tablet 1 tablet Orally Once a day buPROPion HCl ER (XL) 150 MG Tablet Extended Release 24 Hour 1 tablet in the morning Orally Once a day Propranolol HCl 10 MG Tablet 1 tablet Orally twice a day hydrOXYzine Pamoate 25 MG Capsule 1 capsule Oral three times a day As neededMagnesium 300 MG Capsule 1 capsule Orally once at night. Medication List reviewed and reconciled with the patientTaking Escitalopram Oxalate 20 MG Tablet 1 tablet Orally Once a day Taking buPROPion HCl ER (XL) 150 MG Tablet Extended Release 24 Hour 1 tablet in the morning Orally Once a day Taking Propranolol HCl 10 MG Tablet 1 tablet Orally twice a day Taking hydrOXYzine Pamoate 25 MG Capsule 1 capsule Oral three times a day As neededTaking Magnesium 300 MG Capsule 1 capsule Orally once at night. Medication List reviewed and reconciled with the patient * Allergies: P enicillins: Allergy - Onset Date 03/25/2024no[Allergies Verified] Objective: * Vitals: * Examination: P sychiatry: Appearance: w ell-groomed. Abnormal body movements: n one. Affect / mood: a ppropriate. Attention: g ood. Attitude: c ooperative. Homicidal ideation: n one. Suicidal ideation: n one. Degree of awareness of surroundings: w ithin normal limits.? Delusions: n o. Hallucinations: n o. Insight: g ood. Judgement: g ood. Orientation: a wake, alert and oriented x 3. Perceptual disorders: n o perceptual disorder noted. Psychomotor activity: w ithin normal range. Speech / language: n ormal rate, volume, and articulation (RVR), clear and coherent. Thought content: a ppropriate. Thought process: i ntact. Assessment: * Assessment: 1. G eneralized anxiety disorder - F41.1 (Primary) 2 . A DHD (attention deficit hyperactivity disorder), combined type - F90.2 3 . M ajor depressive disorder, recurrent, moderate - F33.1 Plan: * Treatment: 2. A DHD (attention deficit hyperactivity disorder), combined type Start Atomoxetine HCl Capsule, 25 MG, 1 capsule, Oral, once a day, 30 days, 30 Capsule, Refills 1.? Notes: Discussed risks/benefits/alternatives to atomoxetine, including GI side effects, weight loss, irritability, constipation, sexual dysfunction, increase in blood pressure and liver damage. Patient denies any h/o cardiovascular disease, including hypertension, tachyarrhythmias. 3. M ajor depressive disorder, recurrent, moderate Refill Escitalopram Oxalate Tablet, 20 MG, 1 tablet, Orally, Once a day, 30 days, 30, Refills 1;?Refill buPROPion HCl ER (XL) Tablet Extended Release 24 Hour, 150 MG, 1 tablet in the morning, Orally, Once a day, 30 days, 30, Refills 1. 4. O thers Notes: Symptoms appear to be stemming from untreated ADHD-- Start atomoxetine 25mg daily for adhd management --discussed starting low dose due to also being on bupropion. ---plan to decrease amount of medications as much as possible, monitor response and tolerability to atomoxetine, once adhd better managed can consider tapering off of escitalopram or wellbutrin. Patient educated on all medications including potential benefits, side effects, risks. Educated on proper dosing schedule and importance of compliance. Previous records reviewed Clinical Notes: -Assessment and treatment plan reviewed with patient. -Compliance with treatment plan importance discussed. -Discussed the risks/benefits of this medication -Discussed medication side effects. -Contact office if symptoms worsen. -Discussed that it can take up to 6-8 weeks to see full therapeutic effects of psychotropic medications. -Crisis prevention hotline 988. * Procedure Codes: 9 6127 BEHAV ASSMT W/SCORE & DOCD/STAND [id number] VISIT COMPLEXITY INHERENT TO ONGOING CARE RELATED TO A PATIENT'S SINGLE, SERIOUS CONDITION OR A COMPLEX [id number] CLIN DEPRESSION SCREEN DOC * Follow Up: 6 Weeks (Reason: medication follow up) * Billing Information: * Visit Code: [id number] OFFICE OUTPATIENT VISIT 25 MINUTES DETAILED HISTORY AND EXAM/MODERATE MEDICAL DECISION MAKING. * Procedure Codes: 92540 BEHAV ASSMT W/SCORE & DOCD/STAND INSTRUMENT. G2211 VISIT COMPLEXITY INHERENT TO ONGOING CARE RELATED TO A PATIENT'S SINGLE, SERIOUS CONDITION OR A COMPLEX CONDITION. G8431 CLIN DEPRESSION SCREEN DOC. * DUMPER Sign off status: Completed true * Provider: PARRIS DOWNEY Date: 0 12/07/2024 Generated for Tulio xavier/Nadine/Suzi on: 0 01/12/2025 05:33 PM PAN DUMPER History and Physical Notes * HPI (History of Present Illness) Category Sub-Category Detail Notes Category Not es History of Presenting Problem Anxiety Rates anxiety 3/10 with 10 b eing most severe. Denies recent panic attacks. Here for follow up, bridge patient from walk in clinic, previous pt of Dr Treviño. History of anxiety, depression. Recently tapered off of Trintellix and was started on escitalopram. Continues to have anxiety, I still feel wired . He is wondering about treating the ADHD. States he has trouble sitting still, difficulty relaxing, I am constantly moving , procrastination, excessive talking, irritability. Feels the anxiety is improved overall with the escitalopram. Denies panic attacks. Mood is fair, not feeling hopeless or helpless, no suicidal ideation. Sleep is fair, getting about 6 hours nightly. Energy is fair to low. Reports compliance with CPAP. Appetite is good. Depression Rates depression 1/ 0 with 10 being most severe. Denies SI. Suicidal ideation denies Sleep disturbance with a history of sl eep apnea- CJ Psychosis no hx psychosis Mood lability no hx jarett Past Psychiatric Hospitalizations Previous psychiatric hospitalizations Previous Psychiatric Hospitalization: No Social hx: . Two adult children. 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 Medical hx: borderline high cholesterol not on medication. Past psychiatric hx- Hx ECT/TMS/esketamine: Past IPBH admissions/IOP/PHP: none Previous suicide attempts: none Previous self-harming: denies Previous medications: trintellix, adderall, wellbutrin Supplements: daily multivitamin Past History of Suicidal attempt Have yo u ever attempted suicide in the past: No Depression screening PHQ-9 Little inte rest or pleasure in doing things: Several days Feeling down, depressed, or hopeless: Se veral days Trouble falling or staying asleep, or sl eeping too much: Not at all Feeling tired or having little energy: N early every day Poor appetite or overeating: Not at all Feeling bad about yourself o r that you are a failure, or have let yourself or your family down: Not at all Trouble concentrating on thi ngs, such as reading the newspaper or watching television: Several days Moving or speaking so slowly that other people could have noticed; or the opposite, being so fidgety or restless that you have been moving around a lot more than usual: Nearly every day Thoughts that you would be b lyndsay off or of hurting yourself in some way: Not at all Intervention Depression Screening Findings: N egative Suicide Risk Assessment Performed: ____ GILMA-7 Anxiety Over the last two we eks, how often have you been bothered by the following problems? 1. Feeling nervous, anxious, or on edge: 2 More than half the days 2. Not being able to stop or control wor ryin Several days 3. Worrying too much about different thi ngs: 1 Several days 4. Trouble relaxin More than half th e days 5. Being so restless that it is hard to sit still: 3 Nearly every day 6. Becoming easily annoyed or irritable: 0 Not at all 7. Feeling afraid, as if something awful might happen: 0 Not at all [place]-Suicide Severity Rating Scale Suicide Risk (CSRS-screener) in the past one month Have you wished you were or wished you could go to sleep and not wake up?: No in the past one month Have y ou actually had any thoughts of killing yourself?: No Have you ever done anything, started to do anything, or prepared to do anything to end your life?: No Examination Category Sub-Category Detail Notes Category Not es Psychiatry Appearance: well-groomed Attitude: cooperative Psychomotor activity: within normal rang e Abnormal body movements: none Attention: good Degree of awareness of surroundings: wit hin normal limits Orientation: awake, alert and ije ented x 3 Affect / mood: appropriate Speech / language: normal rate, volume, and articulation (RVR), clear and coherent Insight: good Judgement: good Thought process: intact Thought content: appropriate Perceptual disorders: no perceptual diso rder noted Suicidal ideation: none Homicidal ideation: none Delusions: no Hallucinations: no
--- OUTSIDE RECORDS SUMMARY | 2025-01-12 17:33 | XMS_ITS ---
Author Organization [facility] [place] Address [address] [facility] [address] [place] [address] Care Team Providers Care [employer] Project Manager Name Role Phone Charles Nguyen MD Primary Care Provider Kendy Bansal Unavailable [phone] Jorge Reid Unavailable [phone] Allergies Allergen (clinical drug ingredient) Drug/Non Drug Allergy documented on EMR Reaction Allergy Type Onset Date Status Substance with penicillin structure and antibacterial mechanism of action (substance) Penicillins Unknown Drug Allergy 03/25/2024 Active REASON FOR VISIT akathisia, anxiety Medications Medication SIG (Take, Route, Frequency, Duration) Notes Start Date End Date Status Escitalopram Oxalate 20 MG 1 tablet Orally Once a day for 30 days Active buPROPion HCl 75 MG 1 tablet every morning Orally once a day for 30 days 08/20/2024 Active buPROPion HCl 75 MG 1 tablet every morning Oral once a day d/c XR 150 Active Magnesium 300 MG 1 capsule Orally Once a day Active Propranolol HCl 10 MG 1 tablet Orally twice a day for 30 days Active hydrOXYzine Pamoate 25 MG 1 capsule Orally three times a day for 30 days As needed 07/28/2024 Not-Taking Social History Tobacco Use: Social History Observation [...] Problem Status W/U Status Risk Notes Problem [id number] 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) Active confirmed Vital Signs Blood pressure systolic 109 mm Hg 08/20/20 24 Blood pressure diastolic 89 mm Hg 024 Heart Rate 94 /min 08/20/2024 Height 69.00 in 08/20/2024 Weight 214.4 lbs 08/20/2024 BMI 31.66 kg/m2 08/20/2024 Height-cm 175.26 cm 08/20/2024 Weight-kg 97.25 kg 08/20/2024 Encounters Encounter Location Date Provider Diagnosis [facility] [address] [address] 08/20/2024 Jorge Clubb Generalized anxiety disorder F41.1 ; Major depressive disorder, recurrent, moderate F33.1 and Akathisia G25.71 Assessments Encounter Date Diagnosis (ICD Code) Assessment Notes Treatment Notes Treatment Clinical Notes Section Notes 08/20/2024 Generalized anxiety disorder (ICD-10 - F41.1) 1. Anxiety and Jitteriness - Continue escitalopram 20mg daily (increased from 10mg). - Continue hydroxyzine as needed for anxiety attacks. - restart propranolol 10mg twice daily for akathesia and restless legs. a. Monitor heart rate and adjust dose as needed. - Patient reports increased jitteriness, especially noticeable foot movements in bed. 2. Depression and Motivation - increase escitalopram 20mg daily (increased from 10mg). - Decrease bupropion to 75mg daily (from 150mg XR). a. Monitor for changes in concentration and anxiety. - Patient reports not feeling depressed but lacks motivation on weekends. - PHQ-9 score improved from 14 to 8 since initial visit. 3. Sleep and Appetite - No issues reported. - Patient reports falling asleep easily and no appetite problems. - patient has started taking magnesium [id number]-[id number] with sleep improvement 4. Blood Pressure and Orthostatic Hypotension - Educate on standing slowly and increasing water intake with propranolol. - Current BP 109/89, HR 94 bpm. Follow-Up - Schedule follow-up in 2 weeks to assess medication adjustments. - Discuss potential bupropion discontinuation. 08/20/2024 Major depressive disorder, recurrent, moderate (ICD-10 - F33.1) 1. Anxiety and Jitteriness - Continue escitalopram 20mg daily (increased from 10mg). - Continue hydroxyzine as needed for anxiety attacks. - restart propranolol 10mg twice daily for akathesia and restless legs. a. Monitor heart rate and adjust dose as needed. - Patient reports increased jitteriness, especially noticeable foot movements in bed. 2. Depression and Motivation - increase escitalopram 20mg daily (increased from 10mg). - Decrease bupropion to 75mg daily (from 150mg XR). a. Monitor for changes in concentration and anxiety. - Patient reports not feeling depressed but lacks motivation on weekends. - PHQ-9 score improved from 14 to 8 since initial visit. 3. Sleep and Appetite - No issues reported. - Patient reports falling asleep easily and no appetite problems. - patient has started taking magnesium [id number] with sleep improvement 4. Blood Pressure and Orthostatic Hypotension - Educate on standing slowly and increasing water intake with propranolol. - Current BP 109/89, HR 94 bpm. Follow-Up - Schedule follow-up in 2 weeks to assess medication adjustments. - Discuss potential bupropion discontinuation. 08/20/2024 Akathisia (ICD-10 - G25.71) 1. Anxiety and Jitteriness - Continue escitalopram 20mg daily (increased from 10mg). - Continue hydroxyzine as needed for anxiety attacks. - restart propranolol 10mg twice daily for akathesia and restless legs. a. Monitor heart rate and adjust dose as needed. - Patient reports increased jitteriness, especially noticeable foot movements in bed. 2. Depression and Motivation - increase escitalopram 20mg daily (increased from 10mg). - Decrease bupropion to 75mg daily (from 150mg XR). a. Monitor for changes in concentration and anxiety. - Patient reports not feeling depressed but lacks motivation on weekends. - PHQ-9 score improved from 14 to 8 since initial visit. 3. Sleep and Appetite - No issues reported. - Patient reports falling asleep easily and no appetite problems. - patient has started taking magnesium [id number]-[id number] with sleep improvement 4. Blood Pressure and Orthostatic Hypotension - Educate on standing slowly and increasing water intake with propranolol. - Current BP 109/89, HR 94 bpm. Follow-Up - Schedule follow-up in 2 weeks to assess medication adjustments. - Discuss potential bupropion discontinuation. 08/20/2024 Other Assessment and plan reviewed with patient Call for problems with medication, side effects or need for dosage change Compliance issues reviewed Discussed the risks/benefits of this medication Discussed medication side effects Return if symptoms worsen Treatment options reviewed. discussed that it can take weeks to see full therapeutic effects of psychotropic medications. discussed when to seek emergency services. discussed crisis prevention hotline 988. 1. Anxiety and Jitteriness - Continue escitalopram 20mg daily (increased from 10mg). - Continue hydroxyzine as needed for anxiety attacks. - restart propranolol 10mg twice daily for akathesia and restless legs. a. Monitor heart rate and adjust dose as needed. - Patient reports increased jitteriness, especially noticeable foot movements in bed. 2. Depression and Motivation - increase escitalopram 20mg daily (increased from 10mg). - Decrease bupropion to 75mg daily (from 150mg XR). a. Monitor for changes in concentration and anxiety. - Patient reports not feeling depressed but lacks motivation on weekends. - PHQ-9 score improved from 14 to 8 since initial visit. 3. Sleep and Appetite - No issues reported. - Patient reports falling asleep easily and no appetite problems. - patient has started taking magnesium cjhw-lxi-tflumhm with sleep improvement 4. Blood Pressure and Orthostatic Hypotension - Educate on standing slowly and increasing water intake with propranolol. - Current BP 109/89, HR 94 bpm. Follow-Up - Schedule follow-up in 2 weeks to assess medication adjustments. - Discuss potential bupropion discontinuation. Plan Of Treatment Medication Medication Name Sig Start Date Stop Date Notes buPROPion HCl ER (XL) 150 MG 1 tablet in the morning Oral Once a day for 30 days Escitalopram Oxalate 20 MG 1 tablet Oral ly Once a day for 30 days buPROPion HCl 75 MG 1 tablet every morni ng Orally once a day for 30 days 08/20/2024 Propranolol HCl 10 MG 1 tablet Orally tw ice a day for 30 days Treatment Notes Assessment Notes Other Assessment and plan reviewed with patient Call for problems with medication, side effects or need for dosage change Compliance issues reviewed Discussed the risks/benefits of this medication Discussed medication side effects Return if symptoms worsen Treatment options reviewed. discussed that it can take weeks to see full therapeutic effects of psychotropic medications. discussed when to seek emergency services. discussed crisis prevention hotline 398. Next Appt Details Follow Up: 2 Weeks, Reason: Provider Name:Kendy Espinal, 01/17/2025 04:30:00 PM, [address], [facility] [address], [place], [address], Progress Notes * SILVIO ANNEMARIE ADOB:1965 (59 yo M)Acc No.[id number]:08/20/2024 Patient: ANNEMARIE FLORES Provider: PARRIS Anaya :1965 A ge:59 Y S ex:Male Date:08/20/2024 Address:[address] [place], [place] [id number] Subjective: * Chief Complaints: * A kathisiaAnxiety * HPI: D epression Screening: The note is transcribed using speech recognition software. It is a reflection of a visit with the patient. It might have some inaccuracy, including medication names and transcribing errors, though efforts have been made to correct them. Chief Complaint: akathisia HPI: The patient states that the shaking and movements have increased, with his noticing his foot moving in bed. He feels more restless than before. His current medications are escitalopram 10 mg and bupropion 150 mg, having recently discontinued clonazepam. He has hydroxyzine available for use three times daily as needed, but has not taken it. He has propranolol available but has not taken it. 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 He expresses a desire to reduce to a single medication. His sleep and appetite are reported as normal, with no issues falling asleep or with appetite. Overall, he feels better than when he initially presented, but the jitteriness persists. Medications: The patient has a history of taking clonazepam and Trintellix in the past. Attempts to decrease bupropion and increase escitalopram worsened his anxiety. He is hesitant to make further changes without adding propranolol, fearing that increasing escitalopram might exacerbate his jitters. Other Symptoms: The patient reports a change in sleeping position from stomach to side due to the foot movements. His acknowledges the jitteriness but does not believe he is depressed. He expresses concern about not wanting to let anyone down, particularly his who has stopped working due to health issues. Sometimes he feels like he is holding her back by not feeling motivated, but this is not a new feeling. The patient can still enjoy activities he used to, although he admits to sometimes faking enjoyment for his children's sake. His PHQ-9 score has improved from 14 to 8, and his GILMA score has improved from 12 to 8. He no longer has issues with focus and can complete tasks when he sits down to do them. The patient is compliant with taking his medications and does not miss doses. He can fall asleep quickly, and his appetite is not a problem. He usually wants to sleep when he comes home but gets up to do necessary work for school. He enjoys reading on his Steve before bed and sometimes falls asleep while reading. He and his sometimes have movie days on weekends. The patient does not feel depressed but sometimes lacks motivation on weekends, which he attributes to the demands of being a teacher. He still enjoys teaching and would stop if he no longer enjoyed it. GILMA-7 (2018 Edition) F eeling nervous, anxious, or on edge?More than half the days, N ot being able to stop or control worrying S everal days,?Worrying too much about different things N ot at all, T rouble relaxing M ore than half the days, B eing so restless that it is hard to sit still N early every day, B ecoming easily annoyed or irritable N ot at all, F eeling afraid as if something awful might happen Not at all, T otal GILMA-7 Score 8 , I f you checked any problems, how difficult have they made it for you to do your work, take care of things at home, or get along with other people??Somewhat difficult, I nterpretation of Total ( 5 to 9) Mild. C [place]-Suicide Severity Rating Scale: Suicide Risk [...] as reading the newspaper or watching television N ot at all, M oving or speaking so slowly that other people could have noticed; or the opposite, being so fidgety or restless that you have been moving around a lot more than usual N early every day, T houghts that you would be better off or of hurting yourself in some way N ot at all, T otal Score 8 , I nterpretation M ild Depression. I ntervention D epression Screening Findings P ositve F ollow-Up for Depression E motional support education, Management of mental health treatment, S uicide Risk Assessment Performed 1 , A dditional Evaluation for Depression P sychiatric interview and evaluation, N kurt of the standardized tool used for adult depression screening: [facility] (PHQ-9). P ast Medication history: clonazepam and Trintellix. * ROS: N eurologic: Patient complains of r estless legs at night. ? P sychiatric: Patient denies a uditory / visual hallucinations, delusions, depressed mood, difficulty sleeping, eating disorder, loss of appetite, mental or physical abuse, mood disorder, nervous breakdown, stressors, substance abuse, suicidal thoughts, jarett, Feeling Intoxicated, Dissociations, Excited, psychosis, irritability, panic attacks, difficulty concentrating, involuntary movements. P atient complains of a nxiety. * Medical History: * Surgical History: * Hospitalization/Major Diagno stic Procedure: * Social History: T obacco Use: T [...] month (2 points).? 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 Safety issues A re there any firearms in the house? Y es. 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 * Medications: T akingbuPROPion HCl 75 MG Tablet 1 tablet every morning Oral once a day , Notes to Pharmacist: d/c XR 150Magnesium 300 MG Capsule 1 capsule Orally Once a day Propranolol HCl 10 MG Tablet 1 tablet Orally twice a day Escitalopram Oxalate 20 MG Tablet 1 tablet Orally Once a day , Notes to Pharmacist: increased on 08/20/24Taking buPROPion HCl 75 MG Tablet 1 tablet every morning Oral once a day , Notes to Pharmacist: d/c XR 150Taking Magnesium 300 MG Capsule 1 capsule Orally Once a day Taking Propranolol HCl 10 MG Tablet 1 tablet Orally twice a day Taking Escitalopram Oxalate 20 MG Tablet 1 tablet Orally Once a day , Notes to Pharmacist: increased on 08/20/24Not-TakinghydrOXYzine Pamoate 25 MG Capsule 1 capsule Orally three times a day As neededNot-Taking hydrOXYzine Pamoate 25 MG Capsule 1 capsule Orally three times a day As neededDiscontinuedbuPROPion HCl ER (XL) 150 MG Tablet Extended Release 24 Hour 1 tablet in the morning Oral Once a day Medication List reviewed and reconciled with the patientDiscontinued buPROPion HCl ER (XL) 150 MG Tablet Extended Release 24 Hour 1 tablet in the morning Oral Once a day Medication List reviewed and reconciled with the patient * Allergies: P enicillins: Allergy - Onset Date 03/25/2024no[Allergies Verified] Objective: * Vitals: B P:109/89mm Hg, HR:94/min, Wt:214.4lbs, Wt-k.25 kg, Ht: 69.00 in, Ht-cm: 175.26 cm, BMI:31.66Index, Body Surface Area: 2.17. * Examination: G eneral Examination: Psych: a lert and oriented x 3, cognitive function intact, cooperative with exam, maintains good eye contact, with good judgement and insight, normal affect / mood, with no auditory or visual hallucinations, speech is clear and coherent, thought process is logical and goal directed without suidical ideation or delusions. - Mental Status Examination: - Reports shaky shakes and feeling wired. - Denies current depressive symptoms but feels unmotivated on weekends. - Normal sleep and appetite. - Expresses enjoyment in activities and denies depression in personal life. - does not perceive the patient as depressed but acknowledges his jitteriness. - PHQ-9 score is 8, indicating mild depression. - GILMA score is 8, indicating mild anxiety. - Improved focus and ability to concentrate compared to initial visit. - Vital Signs: - Elevated resting heart rate at 94 bpm. - Blood pressure is 109/89 mmHg. - Physical Examination: - Increased leg bouncing noted. - No other physical complaints or findings. - Diagnostic Test Results and Labs: - PHQ-9 score: 8 (current visit). - GILMA score: 8 (current visit). - Previous scores: PHQ was 14 and GILMA was 12, showing improvement. - No other lab results or diagnostic tests reported. Assessment: * Assessment: 1. G eneralized anxiety disorder - F41.1 (Primary) 2 . M ajor depressive disorder, recurrent, moderate - F33.1 3 . A kathisia - G25.71 1. Anxiety and Jitteriness - Continue escitalopram 20mg daily (increased from 10mg). - Continue hydroxyzine as needed for anxiety attacks. - restart propranolol 10mg twice daily for akathesia and restless legs. a. Monitor heart rate and adjust dose as needed. - Patient reports increased jitteriness, especially noticeable foot movements in bed. 2. Depression and Motivation - increase escitalopram 20mg daily (increased from 10mg). - Decrease bupropion to 75mg daily (from 150mg XR). a. Monitor for changes in concentration and anxiety. - Patient reports not feeling depressed but lacks motivation on weekends. - PHQ-9 score improved from 14 to 8 since initial visit. 3. Sleep and Appetite - No issues reported. - Patient reports falling asleep easily and no appetite problems. - patient has started taking magnesium [id number]-[id number] with sleep improvement 4. Blood Pressure and Orthostatic Hypotension - Educate on standing slowly and increasing water intake with propranolol. - Current BP 109/89, HR 94 bpm. Follow-Up - Schedule follow-up in 2 weeks to assess medication adjustments. - Discuss potential bupropion discontinuation. Plan: * Treatment: 2. M ajor depressive disorder, recurrent, moderate Stop buPROPion HCl ER (XL) Tablet Extended Release 24 Hour, 150 MG, 1 tablet in the morning, Oral, Once a day, 30 days, 30 Tablet; I ncrease Escitalopram Oxalate Tablet, 20 MG, 1 tablet, Orally, Once a day, 30 days, 30 Tablet; S tart buPROPion HCl Tablet, 75 MG, 1 tablet every morning, Orally, once a day, 30 days, 30 Tablet, Refills 0. 3. O thers Notes: Assessment and plan reviewed with patient Call for problems with medication, side effects or need for dosage change Compliance issues reviewed Discussed the risks/benefits of this medication Discussed medication side effects Return if symptoms worsen Treatment options reviewed. discussed that it can take weeks to see full therapeutic effects of psychotropic medications. discussed when to seek emergency services. discussed crisis prevention hotline 988. * Procedure Codes: 9 6127 BEHAV ASSMT W/SCORE & DOCD/STAND [id number] VISIT COMPLEXITY INHERENT TO ONGOING CARE RELATED TO A PATIENT'S SINGLE, SERIOUS CONDITION OR A COMPLEX CONDITION * Follow Up: 2 Weeks * Billing Information: * Visit Code: 96857 OFFICE OUTPATIENT VISIT 25 MINUTES DETAILED HISTORY AND EXAM/MODERATE MEDICAL DECISION MAKING. * Procedure Codes: 92194 BEHAV ASSMT W/SCORE & DOCD/STAND INSTRUMENT. G2211 VISIT COMPLEXITY INHERENT TO ONGOING CARE RELATED TO A PATIENT'S SINGLE, SERIOUS CONDITION OR A COMPLEX CONDITION. * Electronically co-signed by Keny Corona MD on 08/22/2024 at 11:58 AM CDT Sign off status: Completed true * Provider: PARRIS Anaya Date: 1 Generated for Tulio xavier/Nadine/eTransmitting on: 0 01/12/2025 05:33 PM [employer] History and Physical Notes * HPI (History of Present Illness) Category Sub-Category Detail Notes Category Not es Depression screening PHQ-9 Little inte rest or [...] as reading the newspaper or watching television: Not at all Moving or speaking so slowly that other people could have noticed; or the opposite, being so fidgety or restless that you have been moving around a lot more than usual: Nearly every day Thoughts that you would be b lyndsay off or of hurting yourself in some way: Not at all Total Score: 8 Interpretation: Mild Depression Intervention Depression Screening Findings: P ositve Follow-Up for Depression: Em otional support education, Management of mental health treatment Suicide Risk Assessment Performed: 08/20 Additional Evaluation for De pression: Psychiatric interview and evaluation Name of the standardized too l used for adult depression screening:: Patient Health Questionnaire (PHQ-9) Depression Screening GILMA-7 (2018 Edition) Feelin g nervous, anxious, or on edge: More than half the days Not being able to stop or control worryi ng: Several days Worrying too much about different things : Not at all Trouble relaxing: More than half the day s Being so restless that it is hard to sit still: Nearly every day Becoming easily annoyed or irritable: No t at all Feeling afraid as if something awful tuyet ht happen: Not at all Total GILMA-7 Score: 8 If you checked any problems, how difficult have they made it for you to do your work, take care of things at home, or get along with other people?: Somewhat difficult Interpretation of Total: (5 to 9) Mild [place]-Suicide Severity Rating Scale Suicide Risk (CSRS-screener) in [...] Category Sub-Category Detail Notes Category Not es General Examination Psych: alert and or iented x 3, cognitive function intact, cooperative with exam, maintains good eye contact, with good judgement and insight, normal affect / mood, with no auditory or visual hallucinations, speech is clear and coherent, thought process is logical and goal directed without suidical ideation or delusions - Mental Status Examination: - Reports shaky shakes and feeling wired. - Denies current depressive symptoms but feels unmotivated on weekends. - Normal sleep and appetite. - Expresses enjoyment in activities and denies depression in personal life. - does not perceive the patient as depressed but acknowledges his jitteriness. - PHQ-9 score is 8, indicating mild depression. - GILMA score is 8, indicating mild anxiety. - Improved focus and ability to concentrate compared to initial visit. - Vital Signs: - Elevated resting heart rate at 94 bpm. - Blood pressure is 109/89 mmHg. - Physical Examination: - Increased leg bouncing noted. - No other physical complaints or findings. - Diagnostic Test Results and Labs: - PHQ-9 score: 8 (current visit). - GILMA score: 8 (current visit). - Previous scores: PHQ was 14 and GILMA was 12, showing improvement. - No other lab results or diagnostic tests reported.
--- OUTSIDE RECORDS SUMMARY | 2025-01-12 17:34 | XMS_ITS ---
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 Medications Medication SIG (Take, Route, Frequency, Duration) Notes Start Date End Date Status buPROPion HCl ER (XL) 150 MG Oral for 30 Days Active hydrOXYzine Pamoate 25 MG 1 capsule Orally three times a day for 30 days As needed 07/28/2024 Active Magnesium 300 MG 1 capsule Orally once at night. Active hydrOXYzine Pamoate 25 MG 1 capsule Oral three times a day for 30 days As needed Active buPROPion HCl ER (XL) 150 MG 1 tablet in the morning Orally Once a day for 30 days d/c bupropion HCL ER 150 09/06/2024 Active Escitalopram Oxalate 20 MG 1 tablet Orally Once a day for 30 days Active Propranolol HCl 10 MG 1 tablet Orally twice a day for 30 days Active Social [...] to 4 times a month (2 points) Vital Signs Blood pressure systolic 128 mm Hg 09/06/20 24 Blood pressure diastolic 87 mm Hg 024 Heart Rate 77 /min 09/06/2024 Height 69.00 in 09/06/2024 Weight 216.8 lbs 09/06/2024 BMI 32.01 kg/m2 09/06/2024 Height-cm 175.26 cm 09/06/2024 Weight-kg 98.34 kg 09/06/2024 Encounters Encounter Location Date Provider Diagnosis [facility] [address] [address] 09/06/2024 Jorge Clubb Generalized anxiety disorder F41.1 ; Major depressive disorder, recurrent, moderate F33.1 and Akathisia G25.71 Assessments Encounter Date Diagnosis (ICD Code) Assessment Notes Treatment Notes Treatment Clinical Notes Section Notes 09/06/2024 Generalized anxiety disorder (ICD-10 - F41.1) 1. Depression - He reports feeling pretty good with a depression rating of 1. - Continue escitalopram 20 mg daily. - switch bupropion 75 mg back to XR 150. - Refill prescription for 3 months. 2. Anxiety - He rates anxiety at 2-3. - Currently on hydroxyzine 25 mg as needed. - Continue hydroxyzine 25 mg as needed for high anxiety moments. - No refill needed at this time as he reports having a lot left (hydroxyzine) - continue Proporanolol prn. 3. Restless Legs Syndrome - He reports significant improvement with propranolol 10 mg twice daily. - He notes that without propranolol, restlessness returns. - Continue propranolol 10 mg twice daily. - Refill prescription for 30 days with two refills. - Advised him to consider scheduling doses if symptoms persist. 4. Sleep - He reports good sleep quality with magnesium citrate supplementation. - No issues with falling asleep reported. - Continue magnesium citrate gummies, two before bed. 5. Bupropion side effects - He reports feeling weird and experiencing jolt sensations on bupropion 75 mg. - He notes concentration is good on current regimen. - Discontinue bupropion 75 mg. - Restart bupropion extended-release 150 mg daily. - Refill prescription 6. Follow-up - Schedule a follow-up appointment in 3 months with Reina. - Encourage him to return earlier if any issues arise before the scheduled appointment. 7. Additional notes - He reports no hallucinations, delusions, paranoia, or suicidal thoughts. - Recent stressors include 's penitentiary. - He no longer taking clonazepam. - Overall, he reports being very happy with current treatment plan. 09/06/2024 Major depressive disorder, recurrent, moderate (ICD-10 - F33.1) 1. Depression - He reports feeling pretty good with a depression rating of 1. - Continue escitalopram 20 mg daily. - switch bupropion 75 mg back to XR 150. - Refill prescription for 3 months. 2. Anxiety - He rates anxiety at 2-3. - Currently on hydroxyzine 25 mg as needed. - Continue hydroxyzine 25 mg as needed for high anxiety moments. - No refill needed at this time as he reports having a lot left (hydroxyzine) - continue Proporanolol prn. 3. Restless Legs Syndrome - He reports significant improvement with propranolol 10 mg twice daily. - He notes that without propranolol, restlessness returns. - Continue propranolol 10 mg twice daily. - Refill prescription for 30 days with two refills. - Advised him to consider scheduling doses if symptoms persist. 4. Sleep - He reports good sleep quality with magnesium citrate supplementation. - No issues with falling asleep reported. - Continue magnesium citrate gummies, two before bed. 5. Bupropion side effects - He reports feeling weird and experiencing jolt sensations on bupropion 75 mg. - He notes concentration is good on current regimen. - Discontinue bupropion 75 mg. - Restart bupropion extended-release 150 mg daily. - Refill prescription 6. Follow-up - Schedule a follow-up appointment in 3 months with Reina. - Encourage him to return earlier if any issues arise before the scheduled appointment. 7. Additional notes - He reports no hallucinations, delusions, paranoia, or suicidal thoughts. - Recent stressors include 's penitentiary. - He no longer taking clonazepam. - Overall, he reports being very happy with current treatment plan. 09/06/2024 Akathisia (ICD-10 - G25.71) 1. Depression - He reports feeling pretty good with a depression rating of 1. - Continue escitalopram 20 mg daily. - switch bupropion 75 mg back to XR 150. - Refill prescription for 3 months. 2. Anxiety - He rates anxiety at 2-3. - Currently on hydroxyzine 25 mg as needed. - Continue hydroxyzine 25 mg as needed for high anxiety moments. - No refill needed at this time as he reports having a lot left (hydroxyzine) - continue Proporanolol prn. 3. Restless Legs Syndrome - He reports significant improvement with propranolol 10 mg twice daily. - He notes that without propranolol, restlessness returns. - Continue propranolol 10 mg twice daily. - Refill prescription for 30 days with two refills. - Advised him to consider scheduling doses if symptoms persist. 4. Sleep - He reports good sleep quality with magnesium citrate supplementation. - No issues with falling asleep reported. - Continue magnesium citrate gummies, two before bed. 5. Bupropion side effects - He reports feeling weird and experiencing jolt sensations on bupropion 75 mg. - He notes concentration is good on current regimen. - Discontinue bupropion 75 mg. - Restart bupropion extended-release 150 mg daily. - Refill prescription 6. Follow-up - Schedule a follow-up appointment in 3 months with Reina. - Encourage him to return earlier if any issues arise before the scheduled appointment. 7. Additional notes - He reports no hallucinations, delusions, paranoia, or suicidal thoughts. - Recent stressors include 's penitentiary. - He no longer taking clonazepam. - Overall, he reports being very happy with current treatment plan. 09/06/2024 Other Assessment and plan reviewed with patient Call for problems with medication, side effects or need for dosage change Compliance issues reviewed Discussed the risks/benefits of this medication Discussed medication side effects Return if symptoms worsen Treatment options reviewed. discussed that it can take weeks to see full therapeutic effects of psychotropic medications. discussed when to seek emergency services. discussed crisis prevention hotline 981. 1. Depression - He reports feeling pretty good with a depression rating of 1. - Continue escitalopram 20 mg daily. - switch bupropion 75 mg back to XR 150. - Refill prescription for 3 months. 2. Anxiety - He rates anxiety at 2-3. - Currently on hydroxyzine 25 mg as needed. - Continue hydroxyzine 25 mg as needed for high anxiety moments. - No refill needed at this time as he reports having a lot left (hydroxyzine) - continue Proporanolol prn. 3. Restless Legs Syndrome - He reports significant improvement with propranolol 10 mg twice daily. - He notes that without propranolol, restlessness returns. - Continue propranolol 10 mg twice daily. - Refill prescription for 30 days with two refills. - Advised him to consider scheduling doses if symptoms persist. 4. Sleep - He reports good sleep quality with magnesium citrate supplementation. - No issues with falling asleep reported. - Continue magnesium citrate gummies, two before bed. 5. Bupropion side effects - He reports feeling weird and experiencing jolt sensations on bupropion 75 mg. - He notes concentration is good on current regimen. - Discontinue bupropion 75 mg. - Restart bupropion extended-release 150 mg daily. - Refill prescription 6. Follow-up - Schedule a follow-up appointment in 3 months with Reina. - Encourage him to return earlier if any issues arise before the scheduled appointment. 7. Additional notes - He reports no hallucinations, delusions, paranoia, or suicidal thoughts. - Recent stressors include 's penitentiary. - He no longer taking clonazepam. - Overall, he reports being very happy with current treatment plan. Plan Of Treatment Medication Medication Name Sig Start Date Stop Date Notes hydrOXYzine Pamoate 25 MG 1 capsule Oral three times a day for 30 days buPROPion HCl ER (XL) 150 MG 1 tablet in the morning Orally Once a day for 30 days 09/06/2024 d/c bupropion HCL ER 150 Escitalopram Oxalate 20 MG 1 tablet Orally Once a day for 30 days Propranolol HCl 10 MG 1 tablet Orally twice a day for 30 days Treatment Notes [...] seek emergency services. discussed crisis prevention hotline 294. Next Appt Details Follow Up: 3 Months, Reason: Provider Name:eKndy Espinal, 01/17/2025 04:30:00 PM, [address], [facility] [address], [place], [address], Progress Notes * ANNEMARIE ANGUIANO ADOB:1965 (59 yo M)Acc No.[id number]:09/06/2024 Patient: ANNEMARIE FLORES Provider: PARRIS Anaya :1965 A ge:59 Y S ex:Male Date:09/06/2024 Address:[address] [place], [place] [id number] Subjective: * Chief Complaints: * R eports improved depression and anxiety symptoms with current medication regimen. * HPI: D epression Screening: The note is transcribed using speech recognition software. It is a reflection of a visit with the patient. It might have some inaccuracy, including medication names and transcribing errors, though efforts have been made to correct them. Chief Complaint: The patient reports improved depression and anxiety symptoms with current medication regimen. HPI: The patient rates his depression as 1/10 and anxiety as 2-3/10. He reports his depression as being pretty good and have been using hydroxyzine as needed for anxiety, which seems to help when he's feeling edgy. The patient has stopped taking clonazepam for a few weeks. He denies any suicidal thoughts, thoughts of hurting others, dissociations, or panic attacks. Recent stressors include his 's penitentiary. The patient denies any hallucinations, delusions, paranoia, difficulty sleeping, loss of appetite, or difficulty concentrating. He mentions being very happy with his progress. Medications: The patient is currently taking escitalopram 20 mg, propranolol 10 mg twice a day, and bupropion 75 mg. He reports that propranolol has been effective in managing his restless legs, describing it as pretty amazing and noting that it made his restlessness stop all of a sudden. The patient has experienced a jolt sensation with the bupropion. He has been using hydroxyzine as needed for anxiety. The patient has started taking magnesium citrate at night for sleep. Sleep: The patient reports good sleep quality, mentioning he has no problem falling asleep. . Other Symptoms: The patient has been experiencing restlessness when not taking propranolol but feels settled when he does take it. He reports feeling nervous, anxious, or on edge more than half the day when the bupropion wears off, and he doesn't take hydroxyzine or propranolol. The patient has noticed a difference in his symptoms when the bupropion dose was decreased and switched from extended-release to immediate-release. He reports good concentration and no irritability in the past week. GILMA-7 (2018 Edition) F eeling nervous, anxious, or on edge?More than half the days, N ot being able to stop or control worrying S everal days,?Worrying too much about different things S everal days, T rouble relaxing S everal days, B eing so restless that it is hard to sit still N early every day, B ecoming easily annoyed or irritable N ot at all, F eeling afraid as if something awful might happen N ot at all, T otal GILMA-7 Score 8 , I f you checked any problems, how difficult have they made it for you to do your work, take care of things at home, or get along with other people? S omewhat difficult, I nterpretation of Total ( 5 [...] ittle interest or pleasure in doing things N ot at all, F eeling down, depressed, or hopeless S everal days, T rouble falling or staying asleep, or sleeping too much N ot at all, F eeling tired or having little energy M ore than half the days, P oor appetite or overeating N ot at all, F eeling bad about yourself or that you are a failure, or have let yourself or your family down N ot at all, T rouble concentrating on things, such as reading the newspaper or watching television S everal days,?Moving or speaking so slowly that other people could have noticed; or the opposite, being so fidgety or restless that you have been moving around a lot more than usual N early every day, T houghts that you would be better off or of hurting yourself in some way N ot at all, T otal Score 7 , I nterpretation M ild Depression. I ntervention D epression Screening Findings P ositve, F ollow-Up for Depression E motional support education, Management of mental health treatment, S uicide Risk Assessment Performed 1 , Additional Evaluation for Depression P sychiatric interview and evaluation, N kurt of the standardized tool used for adult depression screening: P atient Health Questionnaire (PHQ-9).? P ast Psychiatric Hospitalizations: Previous psychiatric hospitalizations P revious Psychiatric Hospitalization N o. P ast History of Suicidal attempt H ave you ever attempted suicide in the past N o. P ast Medication history: Trintellix clonazipam. * ROS: P sychiatric: Patient denies i nvoluntary movements, difficulty concentrating, panic attacks, psychosis, Excited, Dissociations, Feeling Intoxicated, jarett, suicidal thoughts, substance abuse, nervous breakdown, mood disorder, mental or physical abuse, loss of appetite, eating disorder, difficulty sleeping, delusions, auditory / visual hallucinations. P atient complains of a nxiety 2 or 3 out of 10, , depressed mood 1/10, , stressors. * Medical History: * Surgical History: * Hospitalization/Major Diagno stic Procedure: * Family History: F ather: None. M aternal Aunt: None. M aternal Uncle: None. P aternal Aunt: None.?Paternal Uncle: None. M other: Anxiety Disorder. P aternal Grandfather: None. P aternal Grandmother: None. M aternal Grandfather: None. M aternal Grandmother: None. B rother: None. S ister: Anxiety Disorder. S on: None. D aughter: Anxiety Disorder. * Social History: T obacco Use: T obacco Control (Standard) T obacco use: N onsmoker. D rug/Alcohol: D rugs H ave you [...] month (2 points).? 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 Safety issues A re there any firearms in the house? Y es. A dvance Care Planning A re you your own decision-maker Y es, D o you have Power of Emergency Room Tech for Health or Medical? N o. S ocial History: H ousehold M arital Status: M arried, N umber of Adults in household: 2 , N umber of Children in Household: 0 , L evel of Education: P [employer]/Masters/PhD. * Medications: T akingEscitalopram Oxalate 20 MG Tablet 1 tablet Orally Once a day Propranolol HCl 10 MG Tablet 1 tablet Orally twice a day As neededMagnesium 300 MG Capsule 1 capsule Orally once at night. hydrOXYzine Pamoate 25 MG Capsule 1 capsule Orally three times a day As neededbuPROPion HCl ER (XL) 150 MG Tablet Extended Release 24 Hour Oral Taking Escitalopram Oxalate 20 MG Tablet 1 tablet Orally Once a day Taking Propranolol HCl 10 MG Tablet 1 tablet Orally twice a day As neededTaking Magnesium 300 MG Capsule 1 capsule Orally once at night. Taking hydrOXYzine Pamoate 25 MG Capsule 1 capsule Orally three times a day As neededTaking buPROPion HCl ER (XL) 150 MG Tablet Extended Release 24 Hour Oral DiscontinuedbuPROPion HCl 75 MG Tablet 1 tablet every morning Oral once a day clonazePAM 0.5 MG Tablet 1 tablet Oral Once a day As neededMedication List reviewed and reconciled with the patientDiscontinued buPROPion HCl 75 MG Tablet 1 tablet every morning Oral once a day Discontinued clonazePAM 0.5 MG Tablet 1 tablet Oral Once a day As neededMedication List reviewed and reconciled with the patient * Allergies: P enicillins: Allergy - Onset Date 03/25/2024no[Allergies Verified] Objective: * Vitals: B P:128/87mm Hg, HR:77/min, Wt:216.8lbs, Wt-k.34 kg, Ht: 69.00 in, Ht-cm: 175.26 cm, BMI:32.01Index, Body Surface Area: 2.19. * Examination: G eneral Examination: Psych: a lert and oriented x 3, cognitive function intact, cooperative with exam, maintains good eye contact, with good judgement and insight, normal affect / mood, with no auditory or visual hallucinations, speech is clear and coherent, thought process is logical and goal directed without suidical ideation or delusions. - Mental Status Examination: - Patient describes feeling weird and experiencing sensations talia to zap- zap when switching from Bupropion 150 mg extended release to bupropion HCL 75 mg. - Reports a low level of depression, describing it as pretty good. - Anxiety levels are minimal, rated at two to three out of ten. - Depression severity is minimal, rated at one out of ten. - Denies experiencing hallucinations, delusions, paranoia, suicidal ideation, thoughts of harming others, or dissociative episodes. - Denies irritability, difficulty concentrating, and occurrences of nervous breakdowns or panic attacks. - Identifies recent stressors as the of a dog and spouse's penitentiary. - Admits to daydreaming but denies any dissociative states. - Expresses satisfaction with the progress of current treatment. - Vital Signs: see note. - Physical Examination: - Reports good sleep quality without any difficulties in sleeping or loss of appetite. - Experiences physical restlessness and shaky shakes, which show improvement with propranolol. Assessment: * Assessment: 1. G eneralized anxiety disorder - F41.1 (Primary) 2 . M ajor depressive disorder, recurrent, moderate - F33.1 3 . A kathisia - G25.71 1. Depression - He reports feeling pretty good with a depression rating of 1. - Continue escitalopram 20 mg daily. - switch bupropion 75 mg back to XR 150. - Refill prescription for 3 months. 2. Anxiety - He rates anxiety at 2-3. - Currently on hydroxyzine 25 mg as needed. - Continue hydroxyzine 25 mg as needed for high anxiety moments. - No refill needed at this time as he reports having a lot left (hydroxyzine) - continue Proporanolol prn. 3. Restless Legs Syndrome - He reports significant improvement with propranolol 10 mg twice daily. - He notes that without propranolol, restlessness returns. - Continue propranolol 10 mg twice daily. - Refill prescription for 30 days with two refills. - Advised him to consider scheduling doses if symptoms persist. 4. Sleep - He reports good sleep quality with magnesium citrate supplementation. - No issues with falling asleep reported. - Continue magnesium citrate gummies, two before bed. 5. Bupropion side effects - He reports feeling weird and experiencing jolt sensations on bupropion 75 mg. - He notes concentration is good on current regimen. - Discontinue bupropion 75 mg. - Restart bupropion extended-release 150 mg daily. - Refill prescription 6. Follow-up - Schedule a follow-up appointment in 3 months with Reina. - Encourage him to return earlier if any issues arise before the scheduled appointment. 7. Additional notes - He reports no hallucinations, delusions, paranoia, or suicidal thoughts. - Recent stressors include 's penitentiary. - He no longer taking clonazepam. - Overall, he reports being very happy with current treatment plan. Plan: * Treatment: 2. M ajor depressive disorder, recurrent, moderate Refill Escitalopram Oxalate Tablet, 20 MG, 1 tablet, Orally, Once a day, 30 days, 30, Refills 2;?Increase buPROPion HCl ER (XL) Tablet Extended Release 24 Hour, 150 MG, 1 tablet in the morning, Orally, Once a day, 30 days, 30, Refills 2, Notes to Pharmacist: d/c bupropion HCL ER 150. ? 3. A kathisia Continue Propranolol HCl Tablet, 10 MG, 1 tablet, Orally, twice a day, 30 days, 60 Tablet, Refills 2. 4. O thers Notes: Assessment and plan reviewed [...] seek emergency services. discussed crisis prevention hotline 773. * Procedure Codes: 9 6127 BEHAV ASSMT W/SCORE & DOCD/STAND [id number] VISIT COMPLEXITY INHERENT TO ONGOING CARE RELATED TO A PATIENT'S SINGLE, SERIOUS CONDITION OR A COMPLEX CONDITION * Follow Up: 3 Months * Billing Information: * Visit Code: 52766 OFFICE OUTPATIENT VISIT 25 MINUTES DETAILED HISTORY AND EXAM/MODERATE MEDICAL DECISION MAKING. * Procedure Codes: 69533 BEHAV ASSMT W/SCORE & DOCD/STAND INSTRUMENT. G2211 VISIT COMPLEXITY INHERENT TO ONGOING CARE RELATED TO A PATIENT'S SINGLE, SERIOUS CONDITION OR A COMPLEX CONDITION. 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.] some way: Not at all Total Score: 7 Interpretation: Mild Depression Intervention Depression Screening Findings: P ositve Follow-Up for Depression: Em otional support education, Management of mental health treatment Suicide Risk Assessment Performed: 09/06 Additional Evaluation for De pression: Psychiatric interview and evaluation Name of the standardized too l used for adult depression screening:: Patient Health Questionnaire (PHQ-9) Depression Screening GILMA-7 (2018 Edition) Feelin g nervous, anxious, or on edge: More than half the days Not being able to stop or control worryi ng: Several days Worrying too much about different things : Several days Trouble relaxing: Several days Being so restless that it is hard [...] Interpretation of Total: (5 to 9) Mild [place]-Suicide Severity Rating Scale Suicide Risk (CSRS-screener) in [...] or delusions - Mental Status Examination: - Patient describes feeling weird and experiencing sensations talia to zap-zap when switching from Bupropion 150 mg extended release to bupropion HCL 75 mg. - Reports a low level of depression, describing it as pretty good. - Anxiety levels are minimal, rated at two to three out of ten. - Depression severity is minimal, rated at one out of ten. - Denies experiencing hallucinations, delusions, paranoia, suicidal ideation, thoughts of harming others, or dissociative episodes. - Denies irritability, difficulty concentrating, and occurrences of nervous breakdowns or panic attacks. - Identifies recent stressors as the of a dog and spouse's penitentiary. - Admits to daydreaming but denies any dissociative states. - Expresses satisfaction with the progress of current treatment. - Vital Signs: see note. - Physical Examination: - Reports good sleep quality without any difficulties in sleeping or loss of appetite. - Experiences physical restlessness and shaky shakes, which show improvement with propranolol.
--- OUTSIDE RECORDS SUMMARY | 2025-01-12 17:35 | XMS_ITS | Patient Health Record ---
Author Organization [facility] [employer] Address [address] [place] [address] Care Team Providers Care Service Secretary Name Role Phone Charles Nguyen MD Primary Care Provider UnavailKendy Eduardo Unavailable [phone] KamilaLeon nieto Unavailable [phone] Migration, Provider Unavailable Unavailable Jorge Reid Unavailable [phone] Allergies Allergen (clinical drug ingredient) Drug/Non Drug Allergy documented on EMR Reaction Allergy Type Onset Date Status Substance with penicillin structure and antibacterial mechanism of action (substance) Penicillins Unknown Drug Allergy 03/25/2024 Active Reason For Referral No Information Medications Medication SIG (Take, Route, Frequency, Duration) Notes Start Date End Date Status hydrOXYzine Pamoate 25 MG 1 capsule Oral three times a day for 30 days As needed Active Atomoxetine HCl 25 MG 1 capsule Oral onc e a day for 30 days 12/07/2024 02/05/2025 Active Propranolol HCl 10 MG 1 tablet Orally tw ice a day for 30 days Active Escitalopram Oxalate 20 MG 1 tablet Oral ly Once a day for 30 days Active buPROPion HCl ER (XL) 150 MG 1 tablet in the morning Orally Once a day for 30 days Active Magnesium 300 MG 1 capsule Orally onc e at night. Active Immunizations Vaccine Route Administration Date Status Comme nts Influenza virus vaccine, quadrivalent (IIV4), split virus, 0.25 mL dosage Unknown 08/11/2019 Administered Moderna Covid-19 Vaccine 1st dose Unknown 04/10/2021 Ad ministered Moderna Covid-19 Vaccine 1st dose Unknown 05/10/2021 Ad ministered Tdap Unknown 04/19/2015 Administered Social History Tobacco Use: Social History Observation [...] Problem Status W/U Status Risk Notes Problem Moderate recurrent major depression (00917925) Major depressive disorder, recurrent, moderate (F33.1) 03/25/20 Active confirmed Problem Generalized anxiety disorder (43521263) Generalized anxiety disorder (F41.1) 03/25/20 Active confirmed Problem Posttraumatic stress disorder (66237628) Post-traumatic stress disorder, chronic (F43.12) 03/25/20 Active confirmed Problem Attention deficit hyperactivity disorder, predominantly inattentive type (65511023) Attention-deficit hyperactivity disorder, predominantly inattentive type (F90.0) 03/25/20 Active confirmed Problem Attention deficit hyperactivity disorder (201608511) ADHD (attention deficit hyperactivity disorder), combined type (F90.2) Active confirmed Problem [id number] 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) Active confirmed Vital Signs Heart Rate 77 /min 09/06/2024 Height-cm 175.26 cm 09/06/2024 Blood pressure diastolic 87 mm Hg 09/06/2024 Weight-kg 98.34 kg 09/06/2024 Height 69.00 in 09/06/2024 Blood pressure systolic 128 mm Hg 09/06/2024 Weight 216.8 lbs 09/06/2024 BMI 32.01 kg/m2 09/06/2024 Encounters Encounter Location Date Provider Diagnosis [facility] [employer] [address] [facility] [address] [place] [address] 02/25/2024 Provider Migration Major depressive disorder, recurrent, moderate F33.1 [facility] [employer] [place] [id number] [facility] [place] [address] [place] [address] 02/26/2024 Thena Kamila Generalized anxiety disorder F41.1 and Major depressive disorder, recurrent, moderate F33.1 [facility] [address] [place] [address] 03/25/2024 Thena Kamila Attention-deficit hyperactivity disorder, predominantly inattentive type F90.0 ; Major depressive disorder, recurrent, moderate F33.1 ; Post-traumatic stress disorder, chronic F43.12 and Generalized anxiety disorder F41.1 [facility] [address] [place] [address] 06/16/2024 Jorge Clubb Attention-deficit hyperactivity disorder, predominantly inattentive type F90.0 ; Generalized anxiety disorder F41.1 ; Major depressive disorder, recurrent, moderate F33.1 and Post-traumatic stress disorder, chronic F43.12 [facility] [address] [place] [address] 06/23/2024 Jorge Clubb Generalized anxiety disorder F41.1 and Major depressive disorder, recurrent, moderate F33.1 [facility] [place] [address] [place] [address] 06/25/2024 Jorge Clubb Generalized anxiety disorder F41.1 and Major depressive disorder, recurrent, moderate F33.1 [facility] [address] [place] [address] 07/14/2024 Jorge Clubb Generalized anxiety disorder F41.1 and Major depressive disorder, recurrent, moderate F33.1 [facility] [address] [place] [address] 07/28/2024 Jorge Clubb Generalized anxiety disorder F41.1 and Major depressive disorder, recurrent, moderate F33.1 [facility] [address] [place] [address] 08/20/2024 Jorge Clubb Generalized anxiety disorder F41.1 ; Major depressive disorder, recurrent, moderate F33.1 and Akathisia G25.71 [facility] [address] [place] [address] 09/06/2024 Jorge Clubb Generalized anxiety disorder F41.1 ; Major depressive disorder, recurrent, moderate F33.1 and Akathisia G25.71 [facility] [employer] [facility] [address] [facility] [address] [facility] [place] [address] [place] [address] 12/07/2024 Kendy Espinal Generalized anxiety disorder F41.1 ; Major depressive disorder, recurrent, moderate F33.1 and ADHD (attention deficit hyperactivity disorder), combined type F90.2 [facility] [employer] [place] [id number] [facility] [address] [address] 03/27/2024 [facility] [address] [facility] [place] [address] [place] [address] 03/28/2024 Provider Migration [facility] [employer] [address] 05/25/2024 Thena Kamila Generalized anxiety disorder F41.1 [facility] [employer] [place] [id number] [facility] [address] [facility] [place] [address] [place] [address] 06/21/2024 Thena Kamila Assessments Encounter Date Diagnosis (ICD Code) Assessment Notes Treatment Notes Treatment Clinical Notes Section Notes 05/25/2024 Generalized anxiety disorder (ICD-10 - F41.1) 07/28/2024 Generalized anxiety disorder (ICD-10 - F41.1) 1. Generalized Anxiety Disorder (GILMA) - Patient reports increased anxiety over past week, possibly related to bupropion decrease and escitalopram increase. - Describes feeling wired and breakthrough anxiety for about a week. - Plan: a. Increase escitalopram to 10mg daily. b. Continue bupropion 150mg daily. c. Add hydroxyzine 25mg up to three times daily as needed for breakthrough anxiety. d. Reassess in 2 weeks or sooner if worsening. 2. Insomnia - Patient reports difficulty falling back asleep after being awakened by dog around 3AM. - reports use of magnesium for sleep has helped. - Plan: Encourage good sleep hygiene. Consider melatonin or other sleep aids if persists. 3. Situational Anxiety - Patient experiences anxiety reporting break through anxiety - Plan: Encourage hydroxyzine use as needed for situational anxiety. - utilize grounding technique and other coping skills. - encouraged to decrease caffeine intake. 4. 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 - Plan: Encourage limiting news exposure and stress-reducing activities like exercise, meditation, hobbies. Follow-up: Schedule appointment in 2 weeks to reassess anxiety and medication response. Advise earlier appointment if no improvement in 1 week. Additional Notes: - Patient started magnesium citrate supplements. - PHQ-9 score 9, GILMA-7 score 10. - No SI, paranoia, delusions, hallucinations or substance use reported. high blood pressure reating, reassess on next visit. 08/20/2024 Major depressive disorder, recurrent, moderate (ICD-10 [...] problems. - patient has started taking magnesium [id number] with sleep improvement 4. Blood Pressure and Orthostatic Hypotension - Educate on standing slowly and increasing water intake with propranolol. - Current BP 109/89, HR 94 bpm. Follow-Up - Schedule follow-up in 2 weeks to assess medication adjustments. - Discuss potential bupropion discontinuation. 08/20/2024 Generalized anxiety disorder (ICD-10 - F41.1) [...] problems. - patient has started taking magnesium [id number]-eyffikn with sleep improvement 4. Blood Pressure and Orthostatic Hypotension - Educate on standing slowly and increasing water intake with propranolol. - Current BP 109/89, HR 94 bpm. Follow-Up - Schedule follow-up in 2 weeks to assess medication adjustments. - Discuss potential bupropion discontinuation. 06/25/2024 Generalized anxiety disorder (ICD-10 - F41.1) 1. Anxiety: - The patient reports improvement in anxiety symptoms with the current medication regimen, which includes escitalopram Trintellix, Bupropion, and clonazepam. Plan: - Continue escitalopram at the current dose of 2.5 mg po daily(half a pill) and monitor for further improvement. - Taper clonazepam to 0.5 mg daily. The patient may try reducing the dose or taking it sparingly. - Reassess anxiety symptoms in two weeks. 2. Depression: - The patient is currently on Escitalopram, Wellbutrin (bupropion) and Trintellix (vortioxetine) for depression management. Plan: - Discontinue Trintellix (he has been taking 10 mg po daily since last visit as the initiation of tapering). - Adjust Wellbutrin dose from 450 mg po daily to 300 mg daily. - Monitor for any signs of depression recurrence or brain zaps . If these occur, the patient may resume taking 150 mg of Wellbutrin and report back. - Reassess depression symptoms in two weeks. 3. Restless Leg Syndrome: - The patient reports involuntary movements, which may be related to serotonin levels. Plan: - Monitor for improvement in involuntary movements after discontinuing Trintellix & decreasing dose of Bupropion, as this may help reduce serotonin levels. - Reassess in two weeks. 4. Medication management: - The goal is to minimize the number of medications while maintaining maximum efficacy. Plan: - In the watermelon inspector, aim to have the patient on escitalopram only, with possible dose adjustments as needed. - Reassess medication regimen in two weeks. 5. Follow-up: - Schedule a follow-up appointment in two weeks to adjust the Wellbutrin dose and reassess anxiety, depression, and restless leg syndrome symptoms. 07/14/2024 Generalized anxiety disorder (ICD-10 - F41.1) 1. Depression - Patient reports no current depressive symptoms, rating 0/10. - Plan: a) Continue escitalopram, increase to 5mg daily (whole tablet). b) Monitor for changes in mood or depressive symptoms. c) decrease Bupropion from 300 mg to 150 mg for 2 weeks. 2. Anxiety - Patient reports low anxiety levels, rating low end of scale. - Patient notes feeling less wound up about work than in the past. - Plan: a) Discontinue clonazepam (patient has already taken last dose). b) Monitor for changes in anxiety levels. 3. Involuntary Movements Shaky Shakes - Patient reports ongoing involuntary movements, primarily in feet. - Patient sometimes unaware of movements until pointed out by . - Plan: a) Monitor for worsening or changes in involuntary movements (leg bouncing) b) improvement since last visit. 4. Bupropion Taper - Patient currently on 300mg daily for the past 2 weeks. - Plan: a) Decrease bupropion to 150mg daily for two weeks (extended-release tablets). b) Reevaluate in two weeks to determine if discontinuation is appropriate. 5. Sleep Quality - Patient reports approximately 6 hours of sleep nightly but poor quality. - Patient uses CPAP machine. - Plan: a) Recommend trying OTC melatonin (5mg) or magnesium citrate/gluconate (200mg) at bedtime to improve sleep quality. b) Monitor for changes in sleep quality and consider other interventions if needed. 6. Follow-up - Schedule follow-up appointment in two weeks to reevaluate bupropion taper and overall mental health status. 07/28/2024 Major depressive disorder, recurrent, moderate (ICD-10 - F33.1) 1. Generalized Anxiety Disorder (GILMA) - Patient reports increased anxiety over past week, possibly related to bupropion decrease and escitalopram increase. - Describes feeling wired and breakthrough anxiety for about a week. - Plan: a. Increase escitalopram to 10mg daily. b. Continue bupropion 150mg daily. c. Add hydroxyzine 25mg up to three times daily as needed for breakthrough anxiety. d. Reassess in 2 weeks or sooner if worsening. 2. Insomnia - Patient reports difficulty falling back asleep after being awakened by dog around 3AM. - reports use of magnesium for sleep has helped. - Plan: Encourage good sleep hygiene. Consider melatonin or other sleep aids if persists. 3. Situational Anxiety - Patient experiences anxiety reporting break through anxiety - Plan: Encourage hydroxyzine use as needed for situational anxiety. - utilize grounding technique and other coping skills. - encouraged to decrease caffeine intake. 4. 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 - Plan: Encourage limiting news exposure and stress-reducing activities like exercise, meditation, hobbies. Follow-up: Schedule appointment in 2 weeks to reassess anxiety and medication response. Advise earlier appointment if no improvement in 1 week. Additional Notes: - Patient started magnesium citrate supplements. - PHQ-9 score 9, GILMA-7 score 10. - No SI, paranoia, delusions, hallucinations or substance use reported. high blood pressure reating, reassess on next visit. 06/16/2024 Generalized anxiety disorder (ICD-10 - F41.1) 1. Moderate depression (PHQ-9 score: 14) - Continue Wellbutrin 300 mg + 150 mg daily (total 450 mg daily) - Taper off Trintellix: decrease to 10 mg daily for one week - Initiate escitalopram 2.5 mg daily after one week of Trintellix taper - Reevaluate in one week to discontinue Trintellix and adjust escitalopram dosage as needed 2. Generalized anxiety disorder - Continue clonazepam twice daily as needed for anxiety - Discontinue scheduled propranolol; use as needed for anxiety - Monitor response to escitalopram initiation and dosage adjustments 3. Attention deficit hyperactivity disorder (ADHD) - not currently treated - Encourage continued use of non-pharmacologic al strategies (e.g., lists, calendars) - Reassess need for pharmacological intervention (e.g., Strattera) after stabilization of anxiety and depression symptoms 4. Medication management and follow-up - Schedule follow-up appointment in one week to assess medication changes and symptom improvement - Coordinate care with Dr. Casey for future appointments and controlled substance prescriptions - Monitor for potential serotonin syndrome with escitalopram initiation 5. Patient education - Instruct him to cut Trintellix tablets in half for one week taper - Inform him of potential delayed onset of action for escitalopram (up to four weeks) - Advise him to report any adverse effects or concerns during medication changes 06/16/2024 Attention-defic it hyperactivity disorder, predominantly inattentive type (ICD-10 - F90.0) 1. Moderate depression (PHQ-9 score: 14) - Continue Wellbutrin 300 mg + 150 mg daily (total 450 mg daily) - Taper off Trintellix: decrease to 10 mg daily for one week - Initiate escitalopram 2.5 mg daily after one week of Trintellix taper - Reevaluate in one week to discontinue Trintellix and adjust escitalopram dosage as needed 2. Generalized anxiety disorder - Continue clonazepam twice daily as needed for anxiety - Discontinue scheduled propranolol; use as needed for anxiety - Monitor response to escitalopram initiation and dosage adjustments 3. Attention deficit hyperactivity disorder (ADHD) - not currently treated - Encourage continued use of non-pharmacologic al strategies (e.g., lists, calendars) - Reassess need for pharmacological intervention (e.g., Strattera) after stabilization of anxiety and depression symptoms 4. Medication management and follow-up - Schedule follow-up appointment in one week to assess medication changes and symptom improvement - Coordinate care with Dr. Casey for future appointments and controlled substance prescriptions - Monitor for potential serotonin syndrome with escitalopram initiation 5. Patient education - Instruct him to cut Trintellix tablets in half for one week taper - Inform him of potential delayed onset of action for escitalopram (up to four weeks) - Advise him to report any adverse effects or concerns during medication changes 06/23/2024 Generalized anxiety disorder (ICD-10 - F41.1) 09/06/2024 Generalized anxiety disorder (ICD-10 - F41.1) [...] suicidal thoughts. - Recent stressors include 's snf. - He no longer taking clonazepam. - Overall, he reports being very happy with current treatment plan. 12/07/2024 Generalized anxiety disorder (ICD-10 - F41.1) 02/25/2024 Major depressive disorder, recurrent, moderate (ICD-10 - F33.1) 02/26/2024 Major depressive disorder, recurrent, moderate (ICD-10 - F33.1) 02/26/2024 Generalized anxiety disorder (ICD-10 - F41.1) 03/25/2024 Major depressive disorder, recurrent, moderate (ICD-10 - F33.1) 03/25/2024 Generalized anxiety disorder (ICD-10 - F41.1) 03/25/2024 Post-traumatic stress disorder, chronic (ICD-10 - F43.12) 03/25/2024 Attention-defic it hyperactivity disorder, predominantly inattentive type (ICD-10 - F90.0) 12/07/2024 ADHD (attention deficit hyperactivity disorder), combined type (ICD-10 - F90.2) Discussed risks/benefits/a lternatives to atomoxetine, including GI side effects, weight loss, irritability, constipation, sexual dysfunction, increase in blood pressure and liver damage. Patient denies any h/o cardiovascular disease, including hypertension, tachyarrhythmias . 12/07/2024 Major depressive disorder, recurrent, moderate (ICD-10 - F33.1) 06/25/2024 Major depressive disorder, recurrent, moderate (ICD-10 - F33.1) 1. Anxiety: - The patient reports improvement in anxiety symptoms with the current medication regimen, which includes escitalopram Trintellix, Bupropion, and clonazepam. Plan: - Continue escitalopram at the current dose of 2.5 mg po daily(half a pill) and monitor for further improvement. - Taper clonazepam to 0.5 mg daily. The patient may try reducing the dose or taking it sparingly. - Reassess anxiety symptoms in two weeks. 2. Depression: - The patient is currently on Escitalopram, Wellbutrin (bupropion) and Trintellix (vortioxetine) for depression management. Plan: - Discontinue Trintellix (he has been taking 10 mg po daily since last visit as the initiation of tapering). - Adjust Wellbutrin dose from 450 mg po daily to 300 mg daily. - Monitor for any signs of depression recurrence or brain zaps . If these occur, the patient may resume taking 150 mg of Wellbutrin and report back. - Reassess depression symptoms in two weeks. 3. Restless Leg Syndrome: - The patient reports involuntary movements, which may be related to serotonin levels. Plan: - Monitor for improvement in involuntary movements after discontinuing Trintellix & decreasing dose of Bupropion, as this may help reduce serotonin levels. - Reassess in two weeks. 4. Medication management: - The goal is to minimize the number of medications while maintaining maximum efficacy. Plan: - In the watermelon inspector, aim to have the patient on escitalopram only, with possible dose adjustments as needed. - Reassess medication regimen in two weeks. 5. Follow-up: - Schedule a follow-up appointment in two weeks to adjust the Wellbutrin dose and reassess anxiety, depression, and restless leg syndrome symptoms. 06/23/2024 Major depressive disorder, recurrent, moderate (ICD-10 - F33.1) 06/16/2024 Major depressive disorder, recurrent, moderate (ICD-10 - F33.1) 1. Moderate depression (PHQ-9 score: 14) - Continue Wellbutrin 300 mg + 150 mg daily (total 450 mg daily) - Taper off Trintellix: decrease to 10 mg daily for one week - Initiate escitalopram 2.5 mg daily after one week of Trintellix taper - Reevaluate in one week to discontinue Trintellix and adjust escitalopram dosage as needed 2. Generalized anxiety disorder - Continue clonazepam twice daily as needed for anxiety - Discontinue scheduled propranolol; use as needed for anxiety - Monitor response to escitalopram initiation and dosage adjustments 3. Attention deficit hyperactivity disorder (ADHD) - not currently treated - Encourage continued use of non-pharmacologic al strategies (e.g., lists, calendars) - Reassess need for pharmacological intervention (e.g., Strattera) after stabilization of anxiety and depression symptoms 4. Medication management and follow-up - Schedule follow-up appointment in one week to assess medication changes and symptom improvement - Coordinate care with Dr. Casey for future appointments and controlled substance prescriptions - Monitor for potential serotonin syndrome with escitalopram initiation 5. Patient education - Instruct him to cut Trintellix tablets in half for one week taper - Inform him of potential delayed onset of action for escitalopram (up to four weeks) - Advise him to report any adverse effects or concerns during medication changes 07/14/2024 Major depressive disorder, recurrent, moderate (ICD-10 - F33.1) Assessment and plan reviewed with patient Discussed medication side effects Take [id number]-[id number]-[id number] medication as needed Treatment options reviewed 1. Depression - Patient reports no current depressive symptoms, rating 0/10. - Plan: a) Continue escitalopram, increase to 5mg daily (whole tablet). b) Monitor for changes in mood or depressive symptoms. c) decrease Bupropion from 300 mg to 150 mg for 2 weeks. 2. Anxiety - Patient reports low anxiety levels, rating low end of scale. - Patient notes feeling less wound up about work than in the past. - Plan: a) Discontinue clonazepam (patient has already taken last dose). b) Monitor for changes in anxiety levels. 3. Involuntary Movements Shaky Shakes - Patient reports ongoing involuntary movements, primarily in feet. - Patient sometimes unaware of movements until pointed out by . - Plan: a) Monitor for worsening or changes in involuntary movements (leg bouncing) b) improvement since last visit. 4. Bupropion Taper - Patient currently on 300mg daily for the past 2 weeks. - Plan: a) Decrease bupropion to 150mg daily for two weeks (extended-release tablets). b) Reevaluate in two weeks to determine if discontinuation is appropriate. 5. Sleep Quality - Patient reports approximately 6 hours of sleep nightly but poor quality. - Patient uses CPAP machine. - Plan: a) Recommend trying OTC melatonin (5mg) or magnesium citrate/gluconate (200mg) at bedtime to improve sleep quality. b) Monitor for changes in sleep quality and consider other interventions if needed. 6. Follow-up - Schedule follow-up appointment in two weeks to reevaluate bupropion taper and overall mental health status. 08/20/2024 Akathisia (ICD-10 - G25.71) 1. Anxiety [...] problems. - patient has started taking magnesium [id number] with sleep improvement 4. Blood Pressure and Orthostatic Hypotension - Educate on standing slowly and increasing water intake with propranolol. - Current BP 109/89, HR 94 bpm. Follow-Up - Schedule follow-up in 2 weeks to assess medication adjustments. - Discuss potential bupropion discontinuation. 09/06/2024 Major depressive disorder, recurrent, moderate (ICD-10 [...] suicidal thoughts. - Recent stressors include 's snf. - He no longer taking clonazepam. - Overall, he reports being very happy with current treatment plan. 06/16/2024 Post-traumatic stress disorder, chronic (ICD-10 - F43.12) 1. Moderate depression (PHQ-9 score: 14) - Continue Wellbutrin 300 mg + 150 mg daily (total 450 mg daily) - Taper off Trintellix: decrease to 10 mg daily for one week - Initiate escitalopram 2.5 mg daily after one week of Trintellix taper - Reevaluate in one week to discontinue Trintellix and adjust escitalopram dosage as needed 2. Generalized anxiety disorder - Continue clonazepam twice daily as needed for anxiety - Discontinue scheduled propranolol; use as needed for anxiety - Monitor response to escitalopram initiation and dosage adjustments 3. Attention deficit hyperactivity disorder (ADHD) - not currently treated - Encourage continued use of non-pharmacologic al strategies (e.g., lists, calendars) - Reassess need for pharmacological intervention (e.g., Strattera) after stabilization of anxiety and depression symptoms 4. Medication management and follow-up - Schedule follow-up appointment in one week to assess medication changes and symptom improvement - Coordinate care with Dr. Casey for future appointments and controlled substance prescriptions - Monitor for potential serotonin syndrome with escitalopram initiation 5. Patient education - Instruct him to cut Trintellix tablets in half for one week taper - Inform him of potential delayed onset of action for escitalopram (up to four weeks) - Advise him to report any adverse effects or concerns during medication changes 09/06/2024 Akathisia (ICD-10 - G25.71) 1. Depression [...] suicidal thoughts. - Recent stressors include 's snf. - He no longer taking clonazepam. - Overall, he reports being very happy with current treatment plan. 06/16/2024 Other Vortioxetine Oral Tablet (VORTIOXETINE - ORAL) material was published, Escitalopram Oral Tablet (ESCITALOPRAM - ORAL) material was published 1. Moderate depression (PHQ-9 score: 14) - Continue Wellbutrin 300 mg + 150 mg daily (total 450 mg daily) - Taper off Trintellix: decrease to 10 mg daily for one week - Initiate escitalopram 2.5 mg daily after one week of Trintellix taper - Reevaluate in one week to discontinue Trintellix and adjust escitalopram dosage as needed 2. Generalized anxiety disorder - Continue clonazepam twice daily as needed for anxiety - Discontinue scheduled propranolol; use as needed for anxiety - Monitor response to escitalopram initiation and dosage adjustments 3. Attention deficit hyperactivity disorder (ADHD) - not currently treated - Encourage continued use of non-pharmacologic al strategies (e.g., lists, calendars) - Reassess need for pharmacological intervention (e.g., Strattera) after stabilization of anxiety and depression symptoms 4. Medication management and follow-up - Schedule follow-up appointment in one week to assess medication changes and symptom improvement - Coordinate care with Dr. Casey for future appointments and controlled substance prescriptions - Monitor for potential serotonin syndrome with escitalopram initiation 5. Patient education - Instruct him to cut Trintellix tablets in half for one week taper - Inform him of potential delayed onset of action for escitalopram (up to four weeks) - Advise him to report any adverse effects or concerns during medication changes 07/28/2024 Other Hydroxyzine Ora l Capsule (HYDROXYZINE PAMOATE - ORAL) material was published Assessment and plan reviewed with patient Compliance issues reviewed Discussed the risks/benefits of this medication Discussed medication side effects Return if symptoms worsen and/or persist Take edsq-qwl-yofaddf medication as needed Treatment options reviewed. discussed that the medication therapeutic effects can joanne 4-6 weeks. 1. Generalized Anxiety Disorder (GILMA) - Patient reports increased anxiety over past week, possibly related to bupropion decrease and escitalopram increase. - Describes feeling wired and breakthrough anxiety for about a week. - Plan: a. Increase escitalopram to 10mg daily. b. Continue bupropion 150mg daily. c. Add hydroxyzine 25mg up to three times daily as needed for breakthrough anxiety. d. Reassess in 2 weeks or sooner if worsening. 2. Insomnia - Patient reports difficulty falling back asleep after being awakened by dog around 3AM. - reports use of magnesium for sleep has helped. - Plan: Encourage good sleep hygiene. Consider melatonin or other sleep aids if persists. 3. Situational Anxiety - Patient experiences anxiety reporting break through anxiety - Plan: Encourage hydroxyzine use as needed for situational anxiety. - utilize grounding technique and other coping skills. - encouraged to decrease caffeine intake. 4. 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 - Plan: Encourage limiting news exposure and stress-reducing activities like exercise, meditation, hobbies. Follow-up: Schedule appointment in 2 weeks to reassess anxiety and medication response. Advise earlier appointment if no improvement in 1 week. Additional Notes: - Patient started magnesium citrate supplements. - PHQ-9 score 9, GILMA-7 score 10. - No SI, paranoia, delusions, hallucinations or substance use reported. high blood pressure reating, reassess on next visit. 08/20/2024 Other Assessment and plan reviewed with [...] problems. - patient has started taking magnesium [id number]-[id number] with sleep improvement 4. Blood Pressure and Orthostatic Hypotension - Educate on standing slowly and increasing water intake with propranolol. - Current BP 109/89, HR 94 bpm. Follow-Up - Schedule follow-up in 2 weeks to assess medication adjustments. - Discuss potential bupropion discontinuation. 09/06/2024 Other Assessment and plan reviewed with [...] seek emergency services. discussed crisis prevention hotline 608. 1. Depression - He reports feeling pretty [...] suicidal thoughts. - Recent stressors include 's snf. - He no longer taking clonazepam. - Overall, he reports being very happy with current treatment plan. 12/07/2024 Other Symptoms appear to be stemming [...] effects of psychotropic medications. -Crisis prevention hotline 959. Plan Of Treatment Next Appt Details Provider Name:Kendy Espinal, 01/17/2025 04:30:00 PM, [address], [address], [place], [address], Insurance Providers Payer Name Payer Address Payer Phone Subscriber Number Group Number Insured Name Patient Relationship to Insured Coverage Start Date Coverage End Date [facility] [address] [place] [address] [id number] SILVIO, ANNEMARIE Self - patient is the insured [facility] [address] [place] [address] [id number] ANNEMARIE ANGUIANO Self - patient is the insured Medical (General) History Medical History History ICD Code Problems: Attention deficit hyperactivit y disorder Chronic post-traumatic stress disorder Generalized anxiety disorder Moderate recurrent major depression , Past Psychiatric History: Anxiety Disord er,PTSD undefined abdominal aortic aneurysm: No atrial fibrillation: No chronic fatigue syndrome: Yes essential tremor: No hyperlipidemia: No hypertension: No Parkinson's disease: No restless leg syndrome: Yes stroke: No subdural hematoma: No type 1 diabetes mellitus: No type 2 diabetes mellitus: No vitamin B12 deficiency: No vitamin D deficiency: No chronic fatigue syndrome: No
--- OUTSIDE RECORDS SUMMARY | 2025-01-12 17:35 | XMS_ITS | Encounter Summary ---
Author Organization [facility] Address [address] [place] [address] Care Team Providers Care Medicinal Plant Picker Name Role Phone Unavailable Primary Care Provider Unavailabl e Encounter Details Date Type Department Care Team (Late st Contact Info) Description 01/12/2025 Telephone [facility] - Ophthalmology [address] [place] [phone] Rafael Woods MD [address] [place] [address] Social History Tobacco Use Types Packs/Day Years Used Date Smoking Tobacco: Never Assessed Sex and Gender Information Value Date Recorded Sex Assigned at Not on file Gender Identity Not on file Sexual Orientation Not on file documented as of this encounter Plan of Treatment Not on file documented as of this encounter Visit Diagnoses Not on filedocumented in this encounter
--- OUTSIDE RECORDS SUMMARY | 2025-01-12 17:35 | XMS_ITS | Referral Summary ---
Author Organization [facility] Address [address] [place] [address] Care Team Providers Care Conductor Yard Name Role Phone Unavailable Primary Care Provider Unavailabl e Source Comments [facility],non-owned Affiliates and Associated Physician Practices is amultiple site organization consisting of ambulatory clinics and hospital sitesin [place], [place], [place] and [place]. This disclosure is being madepursuant to the Care Everywhere program and may not contain all information available regarding this patient. Last updated 18.[facility] Encounters Date Type Department Care Team Description 01/12/2025 Telephone [facility] - Ophthalmology [address] [place] [phone] Rafael Woods MD from Last 3 Months Social History Tobacco Use Types Packs/Day Years Used Date Smoking Tobacco: Never Assessed Sex and Gender Information Value Date Recorded Sex Assigned at Not on file Gender Identity Not on file Sexual Orientation Not on file Plan of Treatment Not on file
--- OUTSIDE RECORDS SUMMARY | 2025-01-12 17:35 | XMS_ITS | Patient Health Summary ---
Author Organization [facility] Address [address] [place] [address] Care Team Providers Care Channel Lip Wetter Name Role Phone Unavailable Primary Care Provider Unavailabl e Note from [facility],non-owned Affiliates and Associated Physician Practices is amultiple site organization consisting of ambulatory clinics and hospital sitesin [place], [place], [place] and [place]. This disclosure is being madepursuant to the Care Everywhere program and may not contain all information available regarding this patient. Last updated 18.[facility] Social History Tobacco Use Types Packs/Day Years Used Date Smoking Tobacco: Never Assessed Sex and Gender Information Value Date Recorded Sex Assigned at Not on file Gender Identity Not on file Sexual Orientation Not on file
--- OUTSIDE RECORDS SUMMARY | 2025-01-12 17:35 | XMS_ITS | Clinical Summary ---
Author Organization [facility] Address [address] [place] [address] Care Team Providers Care Cook Fry Name Role Phone Unavailable Primary Care Provider Unavailabl e Source Comments [facility],non-owned Affiliates and Associated Physician Practices is amultiple site organization consisting of ambulatory clinics and hospital sitesin [place], [place] and [place]. This disclosure is being madepursuant to the Care Everywhere program and may not contain all information available regarding this patient. Last updated 18.[facility] Encounters Date Type Department Care Team Description 01/12/2025 Telephone [facility] - Ophthalmology [address] [place] [address] Rafael Woods MD from Last 3 Months Social History Tobacco Use Types Packs/Day Years Used Date Smoking Tobacco: Never Assessed Sex and Gender Information Value Date Recorded Sex Assigned at Not on file Gender Identity Not on file Sexual Orientation Not on file Plan of Treatment Health Maintenance Due Date Last Done Comments COLOGUARD (AGES 45-75) - COL ON CA SCREENING 1964 COLON MONITORING 1964 COLONOSCOPY - COLON CA SCREENING 1964 CT COLONOGRAPHY - COLON CA SCREENING 1964 Colorectal Cancer Screening 1964 FIT - COLON CA SCREENING 1964 FLEX SIG - COLON CA SCREENING 1964 LIPID TESTING 1964 HIV SCREENING 1979 HEPATITIS C SCREENING 05/18/1982 DTAP/TDAP/TD VACCINES (1 - Tdap) 1983 PNEUMOCOCCAL VACCINE 50+ (1 of 1 - PCV) 2014 ZOSTER VACCINE (1 of 2) 2014 COVID-19 VACCINE ( - 2023-2 5 season) 2024 INFLUENZA VACCINE (#1) 2024 DEPRESSION SCREENING 11/10/2024 Respiratory Syncytial Virus (RSV) Vaccine Pt: or over 60 yrs (1 - 1-dose 75+ series) 2039 HEPATITIS B VACCINE Aged Out No longe r eligible based on patient's age to complete this topic HIB VACCINE Aged Out No longer eligi ble based on patient's age to complete this topic HPV VACCINE Aged Out No longer eligi ble based on patient's age to complete this topic MENINGOCOCCAL (Group B) VACCINE Aged Out No longer eligible based on patient's age to complete this topic MENINGOCOCCAL VACCINE Aged Out No bettina cale eligible based on patient's age to complete this topic
== END 2025-01-12 17:49 | disposition short-term general hospital (02) ==
PROVIDERS: Emergency Provider Nurse Practitioner; PCP Family Medicine
DX: H57.12 Ocular pain, left eye (principal); R51.9 Headache, unspecified; G47.33 Obstructive sleep apnea (adult) (pediatric); F41.9 Anxiety disorder, unspecified; F32.A Depression, unspecified
CPT/HCPCS: 99212; A9270; G0463

== ENCOUNTER 2025-01-31 18:22 | Emergency (ER) | payer BC, OTHER, SELFPAY ==
--- NOTE | ~2025-01-31 | CT_ITS ---
EXAMINATION: CT diagnostic chest wo con DATE: 01/31/2025 21:17 INDICATION: lung nodule TECHNIQUE: Computed tomography (CT) of the chest was performed with 100 mL Omnipaque-350 intravenous contrast. Automated exposure control and iterative reconstruction technique were employed. The dose-l ength product was 453.13 mGy-cm. COMPARISON: X-ray chest, same date. FINDINGS: CHEST: Thoracic aorta: Ascending aortic ectasia measuring up to 4.3 cm. Minimal thoracic aorta atherosclerot ic calcification. Lung parenchyma and airways: No nodules detected in the right lung. 2 mm left lower lobe pulmonary nodule (image 89/[id number]). Minimal peripheral lingular and left lower lobe scar. Patent airways. Thoracic inlet, axillae and chest wall: No thyroid or soft tissue mass. No axillary lymphadenopathy. Mediastinum: No mass or lymphadenopathy. Heart and pericardium: Normal heart size. No pericardial effusion. Coronary artery calcifications: Mild. Pleura: No effusion or mass. Upper abdomen: Cholelithiasis without surrounding inflammatory change. Nephrolithiasis, without hydro nephrosis. Thoracic bones: No acute osseous finding in the chest. 7 mm bone island in the anterior right fourth rib. IMPRESSION: No acute thoracic process detected. Ascending aortic ectasia, measuring up to 4.3 cm. No right lung nodule detected, prior radiographic findings likely related to summation artifact from a rib bone island. 2 mm left lower lobe pulmonary nodule, which requires no additional evaluation unless the patient is at high risk, in which case consider an optional low-dose noncontrast CT of the chest in 12 months. Cholelithiasis. Bilateral nephrolithiasis. Reviewed, dictated and finalized at location K. IMPRESSION: No acute thoracic process detected. Ascending aortic ectasia, measuring up to 4.3 cm. No right lung nodule detected, prior radiographic findings likely related to martin mmation artifact from a rib bone island. 2 mm left lower lobe pulmonary nodule, which requires no additional evaluation unless the patient is at high risk, in which case consider an optional low-dose noncontrast CT of the chest in 12 months. Cholelithiasis. Bilateral nephrolithiasis.
--- NOTE | ~2025-01-31 | CT_ITS ---
EXAMINATION: CT brain wo con DATE: 01/31/2025 18:52 INDICATION: concern for seizures . TECHNIQUE: Computed tomography (CT) of the head was performed without intravenous contrast. The mA wa s adjusted according to patient size. Iterative reconstruction technique was employed. The dose-lengt h product was 681.00 mGy-cm. COMPARISON: 02/11/2018. FINDINGS: No acute intracranial hemorrhage or extra-axial fluid collection. No hydrocephalus, mass, or herniation. No acute ischemic infarct. Unremarkable dural venous sinus attenuation. No acute osseous abnormality. Right maxillary retention cyst/polyp, mucosal thickening, and gas fluid level, the remaining aerated spaces are clear. IMPRESSION: No acute intracranial process. Right maxillary sinus findings may represent acute sinusitis in the appropriate clinical context. Reviewed, dictated and finalized at location K.
--- NOTE | ~2025-01-31 | XR_ITS ---
EXAMINATION: XR chest 2V Exam Date/Time: 01/31/2025 18:45 CDT HISTORY: cough x 2 weeks Comparison: 04/23/2018. RESULT: Lines, tubes, and devices: None. Lungs and pleura: Low volumes with crowding. 6 mm right midlung pulmonary nodule. Linear peripheral o pacity in the left lower lung, likely scar/atelectasis. No focal consolidation, pleural effusion, or pneumothorax. Cardiomediastinal silhouette: Stable. Other: No acute osseous or upper abdominal finding. IMPRESSION: No acute cardiopulmonary process. New, 6 mm right midlung pulmonary nodule. Recommend nonemergent but timely low-dose noncontrast CT of the chest for further evaluation. Reviewed, dictated and finalized at location K. IMPRESSION: No acute cardiopulmonary process. New, 6 mm right midlung pulmonary nodule. Recommend nonemergent but timely low- dose noncontrast CT of the chest for further evaluation.
[2025-01-31 18:23] VITALS: BP 121/95; PULSE 107; RESP 18; TEMP 36.3; O2SAT 96
--- NOTE | 2025-01-31 18:32 | ED_ITS ---
HPI - General Adult General Chief complaint: Unspecified <Laura Gomez APRN - Last Filed: 01/31/25 18:37> Stated complaint: seizure like activity <Laura Gomez APRN - Last Filed: 01/31/25 18:37> Time Seen by Provider: 01/31/25 18:30 <Laura Gomez APRN - Last Filed: 01/31/25 18:37> Focused HPI: Patient is a 59-year-old male who presents to the ER with concerns for seizure-like activity and an ongoing cough for the past 2 weeks. He reports he recently started on Strattera for ADHD. Patient reports for the past 2 weeks he has had a low-grade fever, but it spiked to 102.8 last night. Last night, his noticed him staring off into space and then start shaking. Each time this has happened the episode has not lasted very long. Patient reports he vaguely remembers the events afterwards. He has no history of seizure activity. Patient denies any shortness of breath, wheezing, sore throat, or neck tightness. GENERAL: Well-appearing, well-nourished, and in no acute distress. HEAD: Normocephalic, atraumatic. CHEST: Clear to auscultation. ?No respiratory distress. HEART: Regular rate and rhythm.? NEURO: ?Alert and oriented x3. Patient screened in triage and initial orders placed.? ?Additional care and disposition to be based upon?diagnostic testing and treatment. <Laura Gomez APRN - Last Filed: 01/31/25 18:37> History of Present Illness HPI narrative: Agree with HPI. Patient having sinus congestion with sore throat and frequent coughing. Will have coughing fits who then loses consciousness for no longer than 3 seconds. Has been using his this. Apparently <Malcolm Coats MD - Last Filed: 01/31/25 22:54> Related Data Home medications: Home Medications ?Medication ?Instructions ?Recorded ?Confirmed ?Last Taken ?Type bupropion HCl 300 mg 24 hr tablet, 300 mg PO DAILY 07/03/20 08/25/23 08/23/23 History extended release (Wellbutrin XL) [id number]-[id number] 300 mcg-K 60 1 tablet PO DAILY 06/13/21 08/25/23 08/23/23 History mcg-lycop 600 mcg-lutein 300 mcg tablet (Centrum Silver Ultra Men's) escitalopram oxalate 20 mg tablet mg PO 10/13/24 Unknown History atomoxetine 25 mg capsule mg PO 01/12/25 Unknown History <Laura Gomez APRN - Last Filed: 01/31/25 18:37> Allergies/adverse reactions: Allergies Allergy/AdvReac Type Severity Reaction Status Date / Time No Known Allergies Allergy Verified 01/31/25 21:23 <Laura Gomez APRN - Last Filed: 01/31/25 18:37> Review of Systems 2 Review of Systems: All systems reviewed & are unremarkable except as noted in HPI and below <Malcolm Coats MD - Last Filed: 01/31/25 22:54> Constitutional: Constitutional: Reports no additional constitutional complaints <Malcolm Coats MD - Last Filed: 01/31/25 22:54> ENT: Reports system reviewed and no additional complaints, except as documented <Malcolm Coats MD - Last Filed: 01/31/25 22:54> Cardiovascular: Cardiovascular: Reports no additional cardiovascular complaints <Malcolm Coats MD - Last Filed: 01/31/25 22:54> Respiratory: Respiratory: Reports no additional respiratory complaints < Malcolm Coats MD - Last Filed: 01/31/25 22:54> Neurologic: Reports system reviewed and no additional complaints, except as documented <Malcolm Coats MD - Last Filed: 01/31/25 22:54> [facility] Past Medical History Medical History: Medical History PTSD (post-traumatic stress disorder) Depression Anxiety Back pain CJ on CPAP Intractable hiccups <Laura Gomez APRN - Last Filed: 01/31/25 18:37> Surgical History Surgical History: Surgical History H/O knee surgery <Laura Gomez APRN - Last Filed: 01/31/25 18:37> Family History Family History: Family History Father Hypertension Mother Hypertension Depression Anxiety Thyroid disorder Sibling Thyroid disorder Grandparent Malignant neoplasm of prostate Other Family history of gout Family history of malignant neoplasm <Laura Gomez APRN - Last Filed: 01/31/25 18:37> Social History Social History: Social History Smoking status: Never smoker Second hand tobacco smoke exposure: No Alcohol intake: current Drinks per week: 3 Alcohol use details: seldom occasional Substance use: never Substance use type: does not use Lack of Transportation: No Lack of Food: Never True Current Housing: I Have Housing Concerned About Future Housing: No Difficulty Paying Gas/Electric Bills: No Difficulty Paying for Meds: No Currently Unemployed: No Education: Master's Degree or Higher Difficulty w/ Childcare or Family Care: No Living arrangements: with family Spiritual care concerns: No <Laura Gomez APRN - Last Filed: 01/31/25 18:37> Exam 2 Narrative: GENERAL: Well-appearing, well-nourished, and in no acute distress. HEAD: Normocephalic, atraumatic. ENT: Mucous membranes moist. CHEST: Clear to auscultation. No respiratory distress. HEART: Regular rate and rhythm. Normal peripheral pulses. ABDOMEN: Soft, nontender, nondistended. EXTREMITIES: Normal range of motion. No edema. SKIN: Warm, dry, no rash. NEURO: Alert and oriented x3. PSYCH: Normal mood and affect. <Malcolm Coats MD - Last Filed: 01/31/25 22:54> Course Course Emergency Course: Patient resting comfortably. Patient may be having vasovagal episode related to frequent coughing, or having breath-holding type spell related to the coughing that causes a neb syncope. Lab work unremarkable. Negative viral panel. CT scan shows no concerning nodules or pneumonia. Patient appropriate for discharge. <Malcolm Coats MD - Last Filed: 01/31/25 22:54> Vital Signs Vital signs: Vital Signs Temperature 97.3 F L 01/31/25 18:23 Pulse Rate 107 H 01/31/25 18:23 Respiratory Rate 18 01/31/25 18:23 Blood Pressure 121/95 H 01/31/25 18:23 Pulse Oximetry 96 01/31/25 18:23 Oxygen Delivery Room Air 01/31/25 18:23 Temperature 97.8 F 01/31/25 22:41 Pulse Rate 95 01/31/25 22:41 Respiratory Rate 22 H 01/31/25 22:41 Blood Pressure 122/98 H 01/31/25 22:41 Pulse Oximetry 96 01/31/25 22:41 Oxygen Delivery Room Air 01/31/25 18:23 <Laura Gomez, [employer] - Last Filed: 01/31/25 18:37> Vital Signs Temperature 97.3 F L 01/31/25 18:23 Pulse Rate 107 H 01/31/25 18:23 Respiratory Rate 18 01/31/25 18:23 Blood Pressure 121/95 H 01/31/25 18:23 Pulse Oximetry 96 01/31/25 18:23 Oxygen Delivery Room Air 01/31/25 18:23 Temperature 97.8 F 01/31/25 22:41 Pulse Rate 95 01/31/25 22:41 Respiratory Rate 22 H 01/31/25 22:41 Blood Pressure 122/98 H 01/31/25 22:41 Pulse Oximetry 96 01/31/25 22:41 Oxygen Delivery Room Air 01/31/25 18:23 <Malcolm Coats MD - Last Filed: 01/31/25 22:54> Medical Decision Making Vital Signs Vital Signs: Vital Signs Temperature 97.3 F L 01/31/25 18:23 Pulse Rate 107 H 01/31/25 18:23 Respiratory Rate 18 01/31/25 18:23 Blood Pressure 121/95 H 01/31/25 18:23 Pulse Oximetry 96 01/31/25 18:23 Oxygen Delivery Room Air 01/31/25 18:23 Temperature 97.8 F 01/31/25 22:41 Pulse Rate 95 01/31/25 22:41 Respiratory Rate 22 H 01/31/25 22:41 Blood Pressure 122/98 H 01/31/25 22:41 Pulse Oximetry 96 01/31/25 22:41 Oxygen Delivery Room Air 01/31/25 18:23 <Laura Gomez, [employer] SUPER[employer]OR - Last Filed: 01/31/25 18:37> Vital Signs Temperature 97.3 F L 01/31/25 18:23 Pulse Rate 107 H 01/31/25 18:23 Respiratory Rate 18 01/31/25 18:23 Blood Pressure 121/95 H 01/31/25 18:23 Pulse Oximetry 96 01/31/25 18:23 Oxygen Delivery Room Air 01/31/25 18:23 Temperature 97.8 F 01/31/25 22:41 Pulse Rate 95 01/31/25 22:41 Respiratory Rate 22 H 01/31/25 22:41 Blood Pressure 122/98 H 01/31/25 22:41 Pulse Oximetry 96 01/31/25 22:41 Oxygen Delivery Room Air 01/31/25 18:23 <Malcolm Coats MD - Last Filed: 01/31/25 22:54> Lab Data Result diagrams: 01/31/25 20:47 01/31/25 20:47 <Laura Gomez APRN - Last Filed: 01/31/25 18:37> Labs: Lab Results 01/31/25 Range/Units 20:47 WBC 8.1 (4.5-10.0) K/mm3 RBC 5.02 (4.6-6.20) M/mm3 Hgb 15.7 (14.0-18.0) g/dL Hct 46.2 (42.0-52.0) % MCV 92.0 (80-100) fl MCH 31.3 (26-34) pg MCHC 34.0 (32-36) g/dl RDW 13.5 (11.5-14.5) % Plt Count 307 (150-375) k/mm3 MPV 9.2 (7.4-10.4) fl Immature Gran % (Auto) Not Reportable Neut % (Auto) Not Reportable Lymph % (Auto) Not Reportable [place] % (Auto) Not Reportable Eos % (Auto) Not Reportable Baso % (Auto) Not Reportable Lymph # (Auto) Not Reportable [place] # (Auto) Not Reportable Eos # (Auto) Not Reportable Baso # (Auto) Not Reportable Abs Immat Gran (auto) Not Reportable Absolute Neuts (auto) Not Reportable Absolute Nucleated RBC Not Reportable Total Counted 100 Neutrophils % (Manual) 51 (46-73) % Band Neutrophils % 2 (0-6) % Lymphocytes % (Manual) 33.0 (18-44) % Monocytes % (Manual) 13 H (3-9) % Eosinophils % (Manual) 1 (0-4) % Nucleated RBC % Not Reportable Abs Neuts (Manual) 4.29 (1.3-6.7) K/mm3 Abs Lymphs (Manual) 2.67 (1.1-4.5) K/mm3 Abs Monocytes (Manual) 1.05 H (0.1-0.90) K/mm3 Absolute Eos (Manual) 0.08 (0.02-0.50) K/mm3 Platelet Estimate Adequate (Adequate) Schistocytes None seen Sodium 140 (137-145) mmol/L Potassium 3.9 (3.4-5.0) mmol/L Chloride 101 (98-107) mmol/L Carbon Dioxide 30 (22-30) mmol/L Anion Gap 9 (4-12) mmol/L BUN 20 (9-20) mg/dL Creatinine 1.08 (0.7-1.3) mg/dL Estim Creat Clear Calc 74 ml/min Estimated GFR > 60 (59 - ) Glucose 109 (65-110) mg/dL Calcium 9.4 (8.4-10.2) mg/dL Total Bilirubin 0.5 (0.2-1.3) mg/dL AST 35 (17-59) U/L ALT 37 (6-50) U/L Alkaline Phosphatase 84 (38-126) U/L Total Creatine Kinase 275 H (55-170) U/L Total Protein 8.0 (6.3-8.2) g/dL Albumin 4.6 (3.5-5.1) g/dL Influenza A (RT-PCR) Negative (Negative) Influenza B (RT-PCR) Negative (Negative) RSV (RT-PCR) Negative (Negative) SARS-CoV-2 RNA (RT-PCR) Negative (Negative) <Laura Gomez, [employer]PER[employer]OR - Last Filed: 01/31/25 18:37> Lab Results 01/31/25 Range/Units 20:47 WBC 8.1 (4.5-10.0) K/mm3 RBC 5.02 (4.6-6.20) M/mm3 Hgb 15.7 (14.0-18.0) g/dL Hct 46.2 (42.0-52.0) % MCV 92.0 (80-100) fl MCH 31.3 (26-34) pg MCHC 34.0 (32-36) g/dl RDW 13.5 (11.5-14.5) % Plt Count 307 (150-375) k/mm3 MPV 9.2 (7.4-10.4) fl Immature Gran % (Auto) Not Reportable Neut % (Auto) Not Reportable Lymph % (Auto) Not Reportable [place] % (Auto) Not Reportable Eos % (Auto) Not Reportable Baso % (Auto) Not Reportable Lymph # (Auto) Not Reportable [place] # (Auto) Not Reportable Eos # (Auto) Not Reportable Baso # (Auto) Not Reportable Abs Immat Gran (auto) Not Reportable Absolute Neuts (auto) Not Reportable Absolute Nucleated RBC Not Reportable Total Counted 100 Neutrophils % (Manual) 51 (46-73) % Band Neutrophils % 2 (0-6) % Lymphocytes % (Manual) 33.0 (18-44) % Monocytes % (Manual) 13 H (3-9) % Eosinophils % (Manual) 1 (0-4) % Nucleated RBC % Not Reportable Abs Neuts (Manual) 4.29 (1.3-6.7) K/mm3 Abs Lymphs (Manual) 2.67 (1.1-4.5) K/mm3 Abs Monocytes (Manual) 1.05 H (0.1-0.90) K/mm3 Absolute Eos (Manual) 0.08 (0.02-0.50) K/mm3 Platelet Estimate Adequate (Adequate) Schistocytes None seen Sodium 140 (137-145) mmol/L Potassium 3.9 (3.4-5.0) mmol/L Chloride 101 (98-107) mmol/L Carbon Dioxide 30 (22-30) mmol/L Anion Gap 9 (4-12) mmol/L BUN 20 (9-20) mg/dL Creatinine 1.08 (0.7-1.3) mg/dL Estim Creat Clear Calc 74 ml/min Estimated GFR > 60 (59 - ) Glucose 109 (65-110) mg/dL Calcium 9.4 (8.4-10.2) mg/dL Total Bilirubin 0.5 (0.2-1.3) mg/dL AST 35 (17-59) U/L ALT 37 (6-50) U/L Alkaline Phosphatase 84 (38-126) U/L Total Creatine Kinase 275 H (55-170) U/L Total Protein 8.0 (6.3-8.2) g/dL Albumin 4.6 (3.5-5.1) g/dL Influenza A (RT-PCR) Negative (Negative) Influenza B (RT-PCR) Negative (Negative) RSV (RT-PCR) Negative (Negative) SARS-CoV-2 RNA (RT-PCR) Negative (Negative) <Malcolm Coats MD - Last Filed: 01/31/25 22:54> Imaging Data Radiologist's impression: ITS Impressions Head CT 01/31/25 19:00 IMPRESSION: No acute intracranial process. Right maxillary sinus findings may represent acute sinusitis in the appropriate clinical context. Chest X-Ray 01/31/25 19:51 IMPRESSION: No acute cardiopulmonary process. New, 6 mm right midlung pulmonary nodule. Recommend nonemergent but timely low- dose noncontrast CT of the chest for further evaluation. Chest CT 01/31/25 21:33 IMPRESSION: No acute thoracic process detected. Ascending aortic ectasia, measuring up to 4.3 cm. No right lung nodule detected, prior radiographic findings likely related to summation artifact from a rib bone island. 2 mm left lower lobe pulmonary nodule, which requires no additional evaluation unless the patient is at high risk, in which case consider an optional low-dose noncontrast CT of the chest in 12 months. Cholelithiasis. Bilateral nephrolithiasis. <Malcolm Coats MD - Last Filed: 01/31/25 22:54> ECG Data EKG #1: ECG completion date: 01/31/25 <Malcolm Coats MD - Last Filed: 01/31/25 22:54> ECG completion time: 22:48 <Malcolm Coats MD - Last Filed: 01/31/25 22:54> EKG Interpretation: normal rate (97), sinus rhythm, no ectopy, normal QRS, normal QT and left axis <Malcolm Coats MD - Last Filed: 01/31/25 22:54> Discharge Plan Discharge Clinical Impression: Syncope, Acute viral syndrome <Laura Gomez APRN - Last Filed: 01/31/25 18:37> Patient Disposition: Home, Self-Care <Laura Gomez APRN - Last Filed: 01/31/25 18:37> Condition: Stable <Laura Gomez APRN - Last Filed: 01/31/25 18:37> Instructions: Syncope (ED), Viral Syndrome (ED) <Laura Gomez APRN - Last Filed: 01/31/25 18:37> Additional Instructions: You may have had syncope related to coughing/breath holding spells, or vasovagal stimulation from coughing. Return the ER if you have chest pain, you cannot keep down food/water/medication, or you have additional concerns. <Laura Gomez APRN - Last Filed: 01/31/25 18:37> Patient Language: Belarusian <Laura Gomez APRN - Last Filed: 01/31/25 18:37> Prescriptions: No Action atomoxetine 25 mg capsule PO bupropion HCl [Wellbutrin XL] 300 mg tablet extended release 24 hr 300 mg PO DAILY Centrum Silver Ultra Men's 300-600-300 mcg tablet 1 tablet PO DAILY escitalopram oxalate 20 mg tablet PO mirabegron [Myrbetriq] 25 mg tablet extended release 24 hr 25 mg PO DAILY Qty: 30 0RF <Laura Gomez APRN - Last Filed: 01/31/25 18:37> Follow-up/Referrals: Charles Nguyen MD [Primary Care Provider] - 1 Week <Laura Gomez APRN - Last Filed: 01/31/25 18:37>
--- OUTSIDE RECORDS SUMMARY | 2025-01-31 19:06 | XMS_ITS ---
Author Organization [facility] [employer] Address [address] [place] [address] Care Team Providers Care Banker Mason Name Role Phone Charles Nguyen MD Primary Care Provider Kendy Bansal Unavailable [phone] Allergies Allergen (clinical drug ingredient) Drug/Non Drug Allergy documented on EMR Reaction Allergy Type Onset Date Status Substance with penicillin structure and antibacterial mechanism of action (substance) Penicillins Unknown Drug Allergy 03/25/2024 Active REASON FOR VISIT follow-up, Depression screening positive Medications Medication SIG (Take, Route, Frequency, Duration) Notes Start Date End Date Status hydrOXYzine Pamoate 25 MG 1 capsule Oral three times a day for 30 days As needed Active Atomoxetine HCl 25 MG 2 capsule Oral onc e a day for 30 days Active buPROPion HCl ER (XL) 150 MG 1 tablet in the morning Orally Once a day for 30 days Active Escitalopram Oxalate 20 MG 1 tablet Orally Once a day for 30 days Active Magnesium 300 MG 1 capsule Orally onc e at night. Active Propranolol HCl 10 MG 1 tablet Orally tw ice a day for 30 days Not-Taking Social History Tobacco Use: Social History [...] (2 points) Vital Signs Blood pressure systolic 141 mm Hg 01/18/20 25 Blood pressure diastolic 92 mm Hg 025 Heart Rate 98 /min 01/17/2025 Height 69.00 in 01/17/2025 Weight 219 lbs 01/17/2025 BMI 32.34 kg/m2 01/17/2025 Height-cm 175.26 cm 01/17/2025 Weight-kg 99.34 kg 01/17/2025 Encounters Encounter Location Date Provider Diagnosis [facility] [address] [place] [address] 01/17/2025 Kendy Espinal Encounter for screen ing for depression Z13.31 ; Encounter for screening for cardiovascular disorders Z13.6 ; Generalized anxiety disorder F41.1 ; Major depressive disorder, recurrent, moderate F33.1 and ADHD (attention deficit hyperactivity disorder), combined type F90.2 Assessments Encounter Date Diagnosis (ICD Code) Assessment Notes Treatment Notes Treatment Clinical Notes Section Notes 01/17/2025 Encounter for screening for depression (ICD-10 - Z13.31) 01/17/2025 Encounter for screening for cardiovascular disorders (ICD-10 - Z13.6) 01/17/2025 Generalized anxiety disorder (ICD-10 - F41.1) 01/17/2025 Major depressive disorder, recurrent, moderate (ICD-10 - F33.1) 01/17/2025 ADHD (attention deficit hyperactivity disorder), combined type (ICD-10 - F90.2) Discussed risks/benefits/al ternatives to atomoxetine, including GI side effects, weight loss, irritability, constipation, sexual dysfunction, increase in blood pressure and liver damage. Patient denies any h/o cardiovascular disease, including hypertension, tachyarrhythmias. 01/17/2025 Other Increase atomoxetine to 50mg daily for ADHD management. Patient educated on all medications including potential benefits, side effects, risks. Educated on proper dosing schedule and importance of compliance. Can consider decrease in escitalopram, wellbutrin if good response to atomoxetine. -Assessment and treatment plan reviewed with patient. -Compliance with treatment plan importance discussed. -Discussed the risks/benefits of this medication -Discussed medication side effects. -Contact office if symptoms worsen. -Discussed that it can take up to 6-8 weeks to see full therapeutic effects of psychotropic medications. -Crisis prevention hotline 988. Plan Of Treatment Medication Medication Name Sig Start Date Stop Date Notes hydrOXYzine Pamoate 25 MG 1 capsule Oral three times a day for 30 days Atomoxetine HCl 25 MG 2 capsule Oral onc e a day for 30 days buPROPion HCl ER (XL) 150 MG 1 tablet in the morning Orally Once a day for 30 days Escitalopram Oxalate 20 MG 1 tablet Oral ly Once a day for 30 days Treatment Notes Assessment Notes ADHD (attention deficit hype ractivity disorder), combined type Discussed risks/benefits/alternatives to atomoxetine, including GI side effects, weight loss, irritability, constipation, sexual dysfunction, increase in blood pressure and liver damage. Patient denies any h/o cardiovascular disease, including hypertension, tachyarrhythmias. Other Increase atomoxetine to 50mg daily for ADHD management. Patient educated on all medications including potential benefits, side effects, risks. Educated on proper dosing schedule and importance of compliance. Can consider decrease in escitalopram, wellbutrin if good response to atomoxetine. Next Appt Details Follow Up: 6 Weeks, Reason: med f/u Provider Name:Kendy Espinal, 02/28/2025 04:45:00 PM, [id number] [facility], [facility] [address], [place], [address], Progress Notes * ANNEMARIE ANGUIANO ADOB:1965 (59 yo M)Acc No.[id number]:01/17/2025 Patient: Syd PACHECOANNEMARIE Provider: CLEMENTE DOWNEYHNP :1965 A ge:59 Y S ex:Male Date:01/17/2025 Address:[address] [place], [place] [id number] Pcp:Charles Nguyen MD Subjective: * Chief Complaints: * F ollow-upDepression screening positive * HPI: D epression Screening: GILMA-7 (2018 Edition) F eeling nervous, anxious, or on edge M ore than half the days N ot being able to stop or control worrying?Not at all W orrying too much about different things S everal days T rouble relaxing S everal days B eing so restless that it is hard to sit still N early every day B ecoming easily annoyed or irritable N ot at all F eeling afraid as if something awful might happen N ot at all I f you checked any problems, how difficult have they made it for you to do your work, take care of things at home, or get along with other people? S omewhat difficult [place]-Suicide Severity Rating Scale: Suicide Risk (CSRS-screener) i n the past one month Have you wished you were or wished you could go to sleep and not wake up? N o i n the past one month Have you actually had any thoughts of killing yourself? N o H ave you ever done anything, started to do anything, or prepared to do anything to end your life? N o D epression screening: PHQ-9 L ittle interest or pleasure in doing things?Several days F eeling down, depressed, or hopeless S everal T rouble falling or staying asleep, or sleeping too much S everal F eeling tired or having little energy S everal days P oor appetite or overeating S ever F eeling bad about yourself or that you are a failure, or have let yourself or your family down S everal T rouble concentrating on things, such as reading the newspaper or watching television N ot at all M oving or speaking so slowly that other people could have noticed; or the opposite, being so fidgety or restless that you have been moving around a lot more than usual N ot at all T houghts that you would be better off or of hurting yourself in some way N ot at all T otal Score 6 I nterpretation M ild Depression Intervention D epression Screening Findings P ositve F ollow-Up for Depression M ental health treatment assessment, Patient follow-up to return when and if necessary S uicide Risk Assessment Performed _ A dditional Evaluation for Depression P sychiatric interview and evaluation N kurt of the standardized tool used for adult depression screening: P atient Health Questionnaire (PHQ-9) H istory of Presenting Problem: Anxiety R ates anxiety 3/10 with 10 being most severe. Denies recent panic attacks. . Depression R ates depression 1/10 with 10 being most severe. Denies SI.. Mood lability n o hx jarett. Psychosis n o hx psychosis. Sleep disturbance w ith a history of sleep apnea- CJ . Suicidal ideation d enies. ADHD h as difficulty sustaining attention in tasks or play activity, often talks excessively, has difficulty awaiting turn, fidgets with hands or feet or squirms in seat. Here for follow up. Atomoxetine started last apt. Reports he is doing alright . Reports he has not noticed any improvement in symptoms related to ADHD. Denies side effects. Continues to struggle with feeling wired , difficulty staying on track. Anxiety is about the same, feels he is able to let situations go more often. Denies feeling hopeless or helpless, no suicidal ideation. Denies panic attacks. Sleep is fair, getting about 6-7 hours nightly. Appetite is good. P ast Psychiatric Hospitalizations: Previous psychiatric hospitalizations P revious Psychiatric Hospitalization N o Past History of Suicidal attempt H ave you ever attempted suicide in the past?No Socialhx: . Two adult children. 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 Medical hx: borderline high cholesterol not on medication. Past psychiatric hx- Hx ECT/TMS/esketamine: Past [facility] admissions/IOP/PHP: none Previous suicide attempts: none Previous self-harming: denies Previous medications: trintellix, adderall, wellbutrin Supplements: daily multivitamin. * ROS: P sychiatric: Patient denies s uicidal thoughts, jarett, psychosis, auditory / visual hallucinations, delusions, irritability, panic attacks. P atient complains of a nxiety, difficulty concentrating. C l[facility] for details. P erformance Met: N ormal blood pressure reading documented, follow-up not required ( G8783). * Medical History: * Surgical History: * Hospitalization/Major Diagno stic Procedure: * Family History: P aternal Uncle: Family history of cancer . F ather: Family history of sudden cardiac , Family history of cancer . M aternal Uncle: Hypertensive disorder . P aternal Grandfather: Family history of cancer . * Social History: T obacco Use: T obacco Control (Standard) T obacco use: N onsmoker M igrated Social History: M igrated Social History: Alcohol Intake: Occasional 09/12/2020,Tobacco Years: Never smoker 09/12/2020. D rug/Alcohol: D rugs H ave you used drugs other than those for medical reasons in the past 12 months? N o Caffeine I ntake: m ore than 4 cups per day AUDIT-C (Standard) D id you have a drink containing alcohol in the past year? Y es H ow often did you have six or more drinks on one occasion in the past year? N ever (0 point) H ow many drinks did you have on a typical day when you were drinking in the past year? 1 or 2 drinks (0 point) H ow often did you have a drink containing alcohol in the past year? 2 to 4 times a month (2 points) M iscellaneous: O ccupation: [employer]. Safety issues A re there any firearms in the house? Y es Advance Care Planning A re you your own decision-maker Y es D o you have Power of [employer] Tender for Health or Medical? Y es S ocial History: H elijah Johnson arital Status: M arried N umber of Adults in household: 2 N umber of Children in Household: 0 L evel of Education: [employer] Schools/Masters/PhD * Medications: T akingMagnesium 300 MG Capsule 1 capsule Orally once at night. Escitalopram Oxalate 20 MG Tablet 1 tablet Orally Once a day buPROPion HCl ER (XL) 150 MG Tablet Extended Release 24 Hour 1 tablet in the morning Orally Once a day Atomoxetine HCl 25 MG Capsule 1 capsule Oral once a day , stop date 02/05/2025Taking Magnesium 300 MG Capsule 1 capsule Orally once at night. Taking Escitalopram Oxalate 20 MG Tablet 1 tablet Orally Once a day Taking buPROPion HCl ER (XL) 150 MG Tablet Extended Release 24 Hour 1 tablet in the morning Orally Once a day Taking Atomoxetine HCl 25 MG Capsule 1 capsule Oral once a day , stop date 02/05/2025Not-TakingPropranolol HCl 10 MG Tablet 1 tablet Orally twice a day hydrOXYzine Pamoate 25 MG Capsule 1 capsule Oral three times a day As neededMedication List reviewed and reconciled with the patientNot-Taking Propranolol HCl 10 MG Tablet 1 tablet Orally twice a day Not- Taking hydrOXYzine Pamoate 25 MG Capsule 1 capsule Oral three times a day As neededMedication List reviewed and reconciled with the patient * Allergies: P enicillins: Allergy - Onset Date 03/25/2024no[Allergies Verified] Objective: * Vitals: B P:141/92mm Hg, HR:98/min, Wt:219lbs, Wt-k.34 kg, Ht: 69.00 in, Ht-cm: 175.26 cm, BMI:32.34Index, Body Surface Area: 2.2. * Examination: P sychiatry: Appearance: w ell-groomed. [...] anxiety disorder - F41.1 (Primary) 2 . E ncounter for screening for depression - Z13.31 3 . E ncounter for screening for cardiovascular disorders - Z13.6 4 . M ajor depressive disorder, recurrent, moderate - F33.1 & #160; 5 . A DHD (attention deficit hyperactivity disorder), combined type - F90.2 ? Plan: * Treatment: 2. M ajor depressive disorder, recurrent, moderate Continue Escitalopram Oxalate Tablet, 20 MG, 1 tablet, Orally, Once a day, 30 days, 30, Refills 1;?Continue buPROPion HCl ER (XL) Tablet Extended Release 24 Hour, 150 MG, 1 tablet in the morning, Orally, Once a day, 30 days, 30, Refills 1. 3. A DHD (attention deficit hyperactivity disorder), combined type Increase Atomoxetine HCl Capsule, 25 MG, 2 capsule, Oral, once a day, 30 days, 60 Capsule, Refills 1. Notes: Discussed risks/benefits/alternatives to atomoxetine, including GI side effects, weight loss, irritability, constipation, sexual dysfunction, increase in blood pressure and liver damage. Patient denies any h/o cardiovascular disease, including hypertension, tachyarrhythmias. 4. O thers Notes: Increase atomoxetine to 50mg daily for ADHD management. Patient educated on all medications including potential benefits, side effects, risks. Educated on proper dosing schedule and importance of compliance. Can consider decrease in escitalopram, wellbutrin if good response to atomoxetine. Clinical Notes: -Assessment and treatment plan reviewed with patient. -Compliance with treatment plan importance discussed. -Discussed the risks/benefits of this medication -Discussed medication side effects. -Contact office if symptoms worsen. -Discussed that it can take up to 6-8 weeks to see full therapeutic effects of psychotropic medications. -Crisis prevention hotline 988. * Procedure Codes: 9 6127 BEHAV ASSMT W/SCORE & DOCD/STAND [id number] NORMAL BP READING DOC F/U NOT [id number] CLIN DEPRESSION SCREEN [id number] MOST RECENT SYSTOLIC BP < 140MM [id number] MOST RECENT DIASTOLIC BP < 90MM [id number] VISIT COMPLEXITY INHERENT TO ONGOING CARE RELATED TO A PATIENT'S SINGLE, SERIOUS CONDITION OR A COMPLEX CONDITION * Follow Up: 6 Weeks (Reason: med f/u) * Billing Information: * Visit Code: [id number] OFFICE OUTPATIENT VISIT 25 MINUTES DETAILED HISTORY AND EXAM/MODERATE MEDICAL DECISION MAKING. * Procedure Codes: 30274 BEHAV ASSMT W/SCORE & DOCD/STAND INSTRUMENT. G8783 NORMAL BP READING DOC F/U NOT RQR. G8431 CLIN DEPRESSION SCREEN DOC. G8752 MOST RECENT SYSTOLIC BP < 140MM HG. G8754 MOST RECENT DIASTOLIC BP < 90MM HG. G2211 VISIT COMPLEXITY INHERENT TO ONGOING CARE RELATED TO A PATIENT'S SINGLE, SERIOUS CONDITION OR A COMPLEX CONDITION. * Sign off status: Completed true * Provider: PARRIS DOWNEY Date: 0 01/17/2025 Generated for Tulio xavier/Nadine/Suzi on: 0 01/31/2025 07:06 PM CDT History and Physical Notes * HPI (History of Present Illness) Category Sub-Category Detail Notes Category Not es History of Presenting Problem Anxiety Rates anxiety 3/10 with 10 b eing most severe. Denies recent panic attacks. Here for follow up. Atomoxetine started last apt. Reports he is doing alright . Reports he has not noticed any improvement in symptoms related to ADHD. Denies side effects. Continues to struggle with feeling wired , difficulty staying on track. Anxiety is about the same, feels he is able to let situations go more often. Denies feeling hopeless or helpless, no suicidal ideation. Denies panic attacks. Sleep is fair, getting about 6-7 hours nightly. Appetite is good. Depression Rates depression 11/10 0 with 10 being most severe. Denies SI. Suicidal ideation denies Sleep disturbance with a history of sl eep apnea- CJ Psychosis no hx psychosis Mood lability no hx jarett ADHD has difficulty susta ining attention in tasks or play activity, often talks excessively, has difficulty awaiting turn, fidgets with hands or feet or squirms in seat Past Psychiatric Hospitalizations Previous psychiatric hospitalizations Previous Psychiatric Hospitalization: No Social hx: . Two adult children. 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 Medical hx: borderline high [...] staying asleep, or sl eeping too much: Several days Feeling tired or having little energy: S everal days Poor appetite or overeating: Several day s Feeling bad about yourself o r that you are a failure, or have let yourself or your family down: Several days Trouble concentrating on thi ngs, such as reading the newspaper or watching television: Not at all Moving or speaking so slowly that other people could have noticed; or the opposite, being so fidgety or restless that you have been moving around a lot more than usual: Not at all Thoughts that you would be b lyndsay off or of hurting yourself in some way: Not at all Total Score: 6 Interpretation: Mild Depression Intervention Depression Screening Findings: P ositve Follow-Up for Depression: [facility] treatment assessment, Patient follow-up to return when and if necessary Suicide Risk Assessment Performed: Additional Evaluation for Depression: Ps ychiatric interview and evaluation Name of the standardized too l used for adult depression screening:: Patient Health Questionnaire (PHQ-9) Depression Screening GILMA-7 (2018 Edition) Feelin g nervous, anxious, or on edge: More than half the days Not being able to stop or control worryi ng: Not at all Worrying too much about different things : Several days Trouble relaxing: Several days Being so restless that it is hard to sit still: Nearly every day Becoming easily annoyed or irritable: No t at all Feeling afraid as if something awful tuyet ht happen: Not at all If you checked any problems, how difficult have they made it for you to do your work, take care of things at home, or get along with other people?: Somewhat difficult [place]-Suicide Severity Rating Scale Suicide Risk (CSRS-screener) in [...] hin normal limits Orientation: awake, alert and jie ented x 3 Affect / mood: appropriate Speech / language: normal rate, volume, and articulation (RVR), clear and coherent Insight: good Judgement: good Thought process: intact Thought content: appropriate Perceptual disorders: no perceptual diso rder noted Suicidal ideation: none Homicidal ideation: none Delusions: no Hallucinations: no
--- OUTSIDE RECORDS SUMMARY | 2025-01-31 19:06 | XMS_ITS | Clinical Summary ---
Author Organization [facility] Address [address] [place] [address] Care Team Providers Care Street Superintendent Name Role Phone Unavailable Primary Care Provider Unavailabl e Source Comments [facility],non-owned Affiliates and Associated Physician Practices is amultiple site organization consisting of ambulatory clinics and hospital sitesin [place], [place], [place] and [place]. This disclosure is being madepursuant to the Care Everywhere program and may not contain all information available regarding this patient. Last updated 18.[facility] Allergies No known active allergies Encounters Date Type Department Care Team Description 01/13/2025 7:34 AM CUSTOMER SERVICE ADVISOR - 01/13/2025 12:02 PM [facility] Emergency [facility] EMERGENCY DEPARTMENT [address] [place] [phone] Richy Cast DO Acute nonintractable headache, unspecified headache type (Primary Dx); Periorbital pain, left Discharge Disposition: Home or Self Care 01/12/2025 Travel 01/12/2025 Telephone [facility] - Ophthalmology [address] [place] [phone] Rafael Woods MD Eye Problem from Last 3 Months Social History Tobacco Use Types Packs/Day Years Used Date Smoking Tobacco: Never Smokeless Tobacco: Never Tobacco Cessation:Counseling Given: Not Answered Alcohol Use Standard Drinks/Week Comments Yes 0 (1 standard drink = 0.6 oz pur e alcohol) occ Sex and Gender Information Value Date Recorded Sex Assigned at Not on file Gender Identity Not on file Sexual Orientation Not on file Last Filed Vital Signs Vital Sign Reading Time Taken Comments Blood Pressure 141/97 01/13/2025 12:01 PM CUSTOMER SERVICE ADVISOR Pulse 81 01/13/2025 12:01 PM CUSTOMER SERVICE ADVISOR Temperature 37 C (98.6 F) 01/13/2025 2:53 AM CUSTOMER SERVICE ADVISOR Respiratory Rate 16 01/13/2025 12:01 PM CUSTOMER SERVICE ADVISOR Oxygen Saturation 98% 01/13/2025 12:01 PM CUSTOMER SERVICE ADVISOR Inhaled Oxygen Concentration - - Weight - - Height - - Body Mass Index - - Plan of Treatment Health Maintenance Due Date [...] VACCINE (1 of 2) 2014 COVID-19 VACCINE (2 - 2023-2 5 season) 2024 06/04/2021 DEPRESSION SCREENING 11/10/2024 Respiratory Syncytial Virus (RSV) Vaccine Pt: or over 60 yrs (1 - 1-dose 75+ series) 2039 INFLUENZA VACCINE Completed 10/14/2024, 08/11/2019, 10/19/2012 HEPATITIS B VACCINE Aged Out No longe r eligible based on patient's age to complete this topic HIB VACCINE Aged Out No longer eligi ble based on patient's age to complete this topic HPV VACCINE Aged Out No longer eligi ble based on patient's age to complete this topic MENINGOCOCCAL (Group B) VACCINE SHARED DECISION-MAKING Aged Out No longer eligible based on patient's age to complete this topic MENINGOCOCCAL GROUPS A/C/Y/W VACCINE Aged Out No longer eligible b ased on patient's age to complete this topic Procedures Procedure Name Priority Date/Time Associated Diagnosis Comments CT HEAD WO CONTRAST STAT 01/12/2025 9:32 PM CUSTOMER SERVICE ADVISOR Acute nonintractable headache, unspecified headache type from Last 3 Months Results * CT HEAD WO CONTRAST (01/12/2025 9:32 PM CUSTOMER SERVICE ADVISOR) Anatomical Region Laterality Modality Head Computed Tomogra phy 01/12/2025 9:35 PM CUSTOMER SERVICE ADVISOR Impressions 01/12/2025 11:02 PM CUSTOMER SERVICE ADVISOR IMPRESSION: 1.No acute intracranial hemorrhage, midline shift, or significant mass effect. The report is dictated by Mesfin Navarro DO, (residential program manager) Gregorio Catalan MD have personally reviewed and interpreted this examination/study. > Interpreting Provider: Gregorio Huffman MD on 01/12/2025 11:02 PM Narrative 01/12/2025 11:02 PM CUSTOMER SERVICE ADVISOR PROCEDURE: CT HEAD WO CONTRAST, DATE/TIME OF EXAM: 01/12/2025 9:33 PM, LOCATION [facility] INDICATION: R51.9: Acute nonintractable headache, unspecified headache type ADDITIONAL CLINICAL INFORMATION: Ordering Provider Reason For Exam: ro bleed vs other Technologist Note: Additional: EXAMINATION: Computed tomography (CT) of the head without contrast TECHNIQUE: CT of the head was performed without contrast according to standard protocol. CT dose reduction technique was used, including Automated Exposure Control. COMPARISON: No prior study is available for comparison at the time of this dictation. FINDINGS: No acute intracranial hemorrhage or intra- or extra-axial fluid collections are identified. There is mild cerebral volume loss with associated ex vacuo ventricular dilatation. The basal cisterns are patent. No mass effect or midline shift is seen. The may-white matter differentiation is normal. There are no visible white matter changes, contusion. The orbits appear normal. There is mild postoperative thickening of the left maxillary sinus and the remainder of the paranasal sinuses are clear. The mastoid air cells are clear. No soft tissue abnormality. No acute calvarial fracture is identified. Procedure Note Gregorio Huffman MD - 01/12/2025 PROCEDURE: CT HEAD WO CONTRAST, DATE/TIME OF EXAM: 01/12/2025 9:33 PM, LOCATION [facility] INDICATION: R51.9: Acute nonintractable headache, unspecified headachetype ADDITIONAL CLINICAL INFORMATION: Ordering Provider Reason For Exam: ro bleed vs other Technologist Note: Additional: EXAMINATION: Computed tomography (CT) of the head without contrast TECHNIQUE: CT of the head was performed without contrast according to standard protocol. CT dose reduction technique was used, including Automated Exposure Control. COMPARISON: No prior study is available for comparison at the time ofthis dictation. FINDINGS: No acute intracranial hemorrhage or intra- or extra-axial fluidcollections are identified. There is mild cerebral volume loss with associated exvacuo ventricular dilatation. The basal cisterns are patent. No mass effect or midline shift is seen. The may-white matter differentiation is normal. There are no visible white matter changes, contusion. The orbits appear normal. There is mild postoperative thickening of the left maxillary sinus and the remainder of the paranasal sinuses areclear. The mastoid air cells are clear. No soft tissue abnormality. No acute calvarial fracture is identified. IMPRESSION: 1.No acute intracranial hemorrhage, midline shift, or significant mass effect. The report is dictated by Mesfin Navarro DO, (residential program manager) IGregorio MD have personally reviewed and interpreted this examination/study. > Interpreting Provider: Gregorio Huffman MD on 01/12/2025 11:02 PM Do Forrest PA-C CT ORDERABLES from Last 3 Months ANNEMARIE ANGUIANO Personal/Family Spouse 1965
--- OUTSIDE RECORDS SUMMARY | 2025-01-31 19:06 | XMS_ITS ---
Author Organization [facility] Address [address] [place] [address] Care Team Providers Care Network Design Architect Name Role Phone Charles Nguyen MD Primary Care Provider Kendy Bansal Unavailable [phone] Allergies Allergen (clinical drug ingredient) Drug/Non Drug [...] Risk Notes Problem Attention deficit hyperactivity disorder (469132683) ADHD (attention deficit hyperactivity disorder), combined type (F90.2) Active confirmed Encounters Encounter Location Date Provider Diagnosis [facility] [address] [facility] [address] [place] [address] 12/07/2024 Kendy Espinal Generalized anxiety disorder F41.1 [...] effects of psychotropic medications. -Crisis prevention hotline 191. Plan Of Treatment Medication Medication Name Sig [...] Reason: medication follow up Provider Name:Kendy Espinal, 02/28/2025 04:45:00 PM, [address] [place] [address] R[address] [facility], [facility] [address], [place], [address], Progress Notes * ANNEMARIE ANGUIANO ADOB:1965 (59 yo M)Acc No.[id number]:12/07/2024 Transfer Walkin patient Patient: Syd ANNEMARIE PACHECO Provider: CLEMENTE DOWNEYHNP :1965 A ge:59 Y S ex:Male Date:12/07/2024 Address:[address] [place], [place] [id number] Pcp:Charles Nguyen MD Subjective: * Chief Complaints: [...] Socialhx: . Two adult children. 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 Medical hx: borderline high [...] es, D o you have Power of Lamp Mechanic for Health or Medical? Y es. S ocial History: H elijah M arital Status: M arried, N umber of Adults in household: 2 , N umber of Children in Household: 0 , L evel of Education: [employer]/Masters/PhD. * Medications: T akingEscitalopram Oxalate 20 [...] 9 6127 BEHAV ASSMT W/SCORE & DOCD/STAND [id number] VISIT COMPLEXITY INHERENT TO ONGOING CARE RELATED TO A PATIENT'S SINGLE, SERIOUS CONDITION OR A COMPLEX [id number] CLIN DEPRESSION SCREEN DOC * Follow Up: 6 Weeks (Reason: medication follow up) * Billing Information: * Visit Code: 07126 OFFICE OUTPATIENT VISIT 25 MINUTES DETAILED HISTORY AND EXAM/MODERATE MEDICAL DECISION MAKING. * Procedure Codes: 12854 BEHAV ASSMT W/SCORE & DOCD/STAND INSTRUMENT. G2211 VISIT COMPLEXITY INHERENT TO ONGOING CARE RELATED TO A PATIENT'S SINGLE, SERIOUS CONDITION OR A COMPLEX CONDITION. G8431 CLIN DEPRESSION SCREEN DOC. * SPECIALIST Sign off status: Completed true * Provider: PARRIS DOWNEY Date: 0 12/07/2024 Generated for Tulio xavier/Nadine/Suzi on: 0 01/31/2025 [...] CPAP. Appetite is good. Depression Rates depression / 0 with 10 being most severe. Denies SI. Suicidal ideation denies Sleep disturbance with a history of sl eep apnea- CJ Psychosis no hx psychosis Mood lability no hx jarett Past Psychiatric Hospitalizations Previous psychiatric hospitalizations Previous Psychiatric Hospitalization: No Social hx: . Two adult children. 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 Medical hx: borderline high cholesterol [...] awful might happen: [address] [facility] Suicide Risk (CSRS-screener) in [...]
--- OUTSIDE RECORDS SUMMARY | 2025-01-31 19:06 | XMS_ITS ---
Author Organization [facility] As [facility] Address [address] [place] [address] Care Team Providers Care Client Manager Large Law Name Role Phone Charles Nguyen MD Primary Care Provider Kendy Bansal Unavailable [phone] Jorge Reid Unavailable [phone] Allergies Allergen (clinical drug ingredient) Drug/Non Drug [...] 09/06/2024 Encounters Encounter Location Date Provider Diagnosis [facility] [employer], [place] [address] [address] 09/06/2024 Jorge Clubb Generalized anxiety disorder F41.1 [...] suicidal thoughts. - Recent stressors include 's group home. - He no longer taking clonazepam. - [...] suicidal thoughts. - Recent stressors include 's group home. - He no longer taking clonazepam. - [...] suicidal thoughts. - Recent stressors include 's group home. - He no longer taking clonazepam. - [...] seek emergency services. discussed crisis prevention hotline 949. 1. Depression - He reports feeling pretty [...] suicidal thoughts. - Recent stressors include 's group home. - He no longer taking clonazepam. - [...] seek emergency services. discussed crisis prevention hotline 081. Next Appt Details Follow Up: 3 Months, Reason: Provider Name:Kendy Espinal, 02/28/2025 04:45:00 PM, [address], [facility] [address], [place], [address], Progress Notes * ANNEMARIE ANGUIANO ADOB:1965 (59 yo M)Acc No.[id number]:09/06/2024 Patient: ANNEMARIE FLORES Provider: PARRIS Anaya :1965 A ge:59 Y S ex:Male Date:09/06/2024 Address:[address] [place], [place] [id number] Subjective: * Chief Complaints: * R eports [...] panic attacks. Recent stressors include his 's group home. The patient denies any hallucinations, delusions, paranoia, [...] es, D o you have Power of Rol[employer] for Health or Medical? N o. S ocial History: H ousehold M arital Status: M arried, N umber of Adults in household: 2 , N umber of Children in Household: 0 , L evel of Education: [employer]/Masters/PhD. * Medications: T akingEscitalopram Oxalate 20 [...] as the of a dog and spouse's group home. - Admits to daydreaming but denies any [...] suicidal thoughts. - Recent stressors include 's group home. - He no longer taking clonazepam. - [...] seek emergency services. discussed crisis prevention hotline 234. * Procedure Codes: 9 6127 BEHAV ASSMT W/SCORE & DOCD/STAND [id number] VISIT COMPLEXITY INHERENT TO ONGOING CARE RELATED TO A PATIENT'S SINGLE, SERIOUS CONDITION OR A COMPLEX CONDITION * Follow Up: 3 Months * Billing Information: * Visit Code: 88509 OFFICE OUTPATIENT VISIT 25 MINUTES DETAILED HISTORY AND EXAM/MODERATE MEDICAL DECISION MAKING. * Procedure Codes: 78696 BEHAV ASSMT W/SCORE & DOCD/STAND INSTRUMENT. G2211 VISIT COMPLEXITY INHERENT TO ONGOING CARE RELATED TO A PATIENT'S SINGLE, SERIOUS CONDITION OR A COMPLEX CONDITION. * Electronically co-signed by Keny Corona MD on 09/08/2024 at 04:12 PM CDT Sign off status: Completed true * Provider: PARRIS Anaya Date: Generated for Tulio xavier/Nadine/Suzi on: 0 01/31/2025 [...] mental health treatment Suicide Risk Assessment Performed: 10/28 /2024 Additional Evaluation for De pression: Psychiatric interview [...] Interpretation of Total: (5 to 9) Mild [place]-Suicide Severity Rating Scale Suicide Risk (CSRS-screener) in [...] as the of a dog and spouse's group home. - Admits to daydreaming but denies any dissociative states. - Expresses satisfaction with the progress of current treatment. - Vital Signs: see note. - Physical Examination: - Reports good sleep quality without any difficulties in sleeping or loss of appetite. - Experiences physical restlessness and shaky shakes, which show improvement with propranolol.
[2025-01-31 20:49] VITALS: PULSE 94
[2025-01-31 20:50] VITALS: BP 129/86; PULSE 94; RESP 16; TEMP 36.9; O2SAT 95
[2025-01-31 20:53] LABS: Hematocrit 46.2 % (42.0-52.0); Hemoglobin 15.7 g/dL (14.0-18.0); Mean Corpuscular Hemoglobin 31.3 pg (26-34); Mean Platelet Volume 9.2 fl (7.4-10.4); Platelet Count Result 307 k/mm3 (150-375); Red Blood Count 5.02 M/mm3 (4.6-6.20); Red Cell Distribution Width 13.5 % (11.5-14.5); White Blood Count 8.1 K/mm3 (4.5-10.0)
--- OUTSIDE RECORDS SUMMARY | 2025-01-31 21:03 | XMS_ITS | Clinical Summary ---
Author Organization [facility] Address [address] [place] [address] Care Team Providers Care Fusion Operator Name Role Phone Unavailable Primary Care Provider Unavailabl e Source Comments [facility],non-owned Affiliates and Associated Physician Practices is amultiple site organization consisting of ambulatory clinics and hospital sitesin [place], [place], [place] and [place]. This disclosure is being madepursuant to the Care Everywhere program and may not contain all information available regarding this patient. Last updated 18.[facility] Allergies No known active allergies Encounters Date Type Department Care Team Description 01/13/2025 7:34 AM PARTS SALES MANAGER - 01/13/2025 12:[address] [facility] Emergency [facility] EMERGENCY DEPARTMENT [address] [place] [phone] Richy Cast DO Acute nonintractable headache, unspecified headache type (Primary Dx); Periorbital pain, left Discharge Disposition: Home or Self Care 01/12/2025 Travel 01/12/2025 Telephone [facility] - Op[facility]mology [address] [place] [phone] Rafael Woods MD Eye Problem from Last [...] Comments Blood Pressure 141/97 01/13/2025 12:01 PM PARTS SALES MANAGER Pulse 81 01/13/2025 12:01 PM PARTS SALES MANAGER Temperature 37 C (98.6 F) 01/13/2025 2:53 AM PARTS SALES MANAGER Respiratory Rate 16 01/13/2025 12:01 PM PARTS SALES MANAGER Oxygen Saturation 98% 01/13/2025 12:01 PM PARTS SALES MANAGER Inhaled Oxygen Concentration - - Weight - [...] HEAD WO CONTRAST STAT 01/12/2025 9:32 PM PARTS SALES MANAGER Acute nonintractable headache, unspecified headache type from Last 3 Months Results * CT HEAD WO CONTRAST (01/12/2025 9:32 PM PARTS SALES MANAGER) Anatomical Region Laterality Modality Head Computed Tomogra phy 01/12/2025 9:35 PM PARTS SALES MANAGER Impressions 01/12/2025 11:02 PM PARTS SALES MANAGER IMPRESSION: 1.No acute intracranial hemorrhage, midline shift, or significant mass effect. The report is dictated by Mesfin Navarro DO, (director of radiology) Gregorio Catalan MD have personally reviewed and interpreted this examination/study. > Interpreting Provider: Gregorio Huffman MD on 01/12/2025 11:02 PM Narrative 01/12/2025 11:02 PM PARTS SALES MANAGER PROCEDURE: CT HEAD WO CONTRAST, DATE/TIME OF EXAM: 01/12/2025 9:33 PM, LOCATION [facility] INDICATION: R51.9: Acute nonintractable headache, unspecified [...] OF EXAM: 01/12/2025 9:33 PM, LOCATION [facility] INDICATION: R51.9: Acute nonintractable headache, unspecified [...] report is dictated by Mesfin Navarro DO, (director of radiology) IGregorio MD have personally reviewed and interpreted this examination/study. > Interpreting Provider: Gregorio Huffman MD on 01/12/2025 11:02 PM Do Forrest PA-C CT ORDERABLES from Last 3 Months ANNEMARIE ANGUIANO Personal/Family Spouse 1965
--- OUTSIDE RECORDS SUMMARY | 2025-01-31 21:03 | XMS_ITS | Patient Health Record ---
Author Organization [email or web address] Address [address] [place] [address] Care Team Providers Care Public Speaking Coach Name Role Phone Charles Nguyen MD Primary Care Provider UnavailKendy Eduardo Unavailable [phone] Leon Treviño Unavailable [phone] Migration, Provider Unavailable Unavailable Jorge Reid Unavailable [phone] Allergies Allergen (clinical drug ingredient) Drug/Non Drug [...] ice a day for 30 days Not-Taking Magnesium 300 MG 1 capsule Orally onc e at night. Active Immunizations Vaccine Route Administration Date Status Comme nts Tdap Unknown 04/19/2015 Administered Moderna Covid-19 Vaccine 1st dose Unknown 04/10/2021 Ad ministered Moderna Covid-19 Vaccine 1st dose Unknown 05/10/2021 Ad ministered Influenza virus vaccine, quadrivalent (IIV4), split virus, 0.25 mL dosage Unknown 08/11/2019 Administered Social History Tobacco Use: Social History [...] Risk Notes Problem Moderate recurrent major depression (61483264) Major depressive disorder, recurrent, moderate (F33.1) 03/25/20 Active confirmed Problem Generalized anxiety disorder (28694913) Generalized anxiety disorder (F41.1) 03/25/20 24 Active confirmed Problem Posttraumatic stress disorder (22095670) Post-traumatic stress disorder, chronic (F43.12) 03/25/20 24 Active confirmed Problem Attention deficit hyperactivity disorder, predominantly inattentive type (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) Attention-deficit hyperactivity disorder, predominantly inattentive type (F90.0) 03/25/20 24 Active confirmed Problem Attention deficit hyperactivity disorder (007168176) ADHD (attention deficit hyperactivity disorder), combined type (F90.2) Active confirmed Problem 455237116 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) Active confirmed Vital Signs Heart Rate 98 /min 01/17/2025 Height-cm 175.26 cm 01/17/2025 Blood pressure diastolic 92 mm Hg 01/17/2025 Weight-kg 99.34 kg 01/17/2025 Height 69.00 in 01/17/2025 Blood pressure systolic 141 mm Hg 01/17/2025 Weight 219 lbs 01/17/2025 BMI 32.34 kg/m2 01/17/2025 Encounters Encounter Location Date Provider Diagnosis [facility] [address] [facility] [address] [place] [address] 02/25/2024 Provider Migration Major depressive disorder, recurrent, moderate F33.1 [facility] [address] [facility] [address] [place] [address] 02/26/2024 Leon Treviño Generalized anxiety disorder F41.1 and Major depressive disorder, recurrent, moderate F33.1 [facility], [facility] [address] [place] [address] 03/25/2024 Thena Kamila Attention-deficit hyperactivity disorder, predominantly inattentive type F90.0 ; Major depressive disorder, recurrent, moderate F33.1 ; Post-traumatic stress disorder, chronic F43.12 and Generalized anxiety disorder F41.1 [facility] [address] [place] [address] 06/16/2024 Jorge Clubb Attention-deficit hyperactivity disorder, predominantly inattentive type F90.0 ; Generalized anxiety disorder F41.1 ; Major depressive disorder, recurrent, moderate F33.1 and Post-traumatic stress disorder, chronic F43.12 [facility] [address] [place] [address] 06/23/2024 Jorge Clubb Generalized anxiety disorder F41.1 and Major depressive disorder, recurrent, moderate F33.1 [facility] [place] [address] [place] [address] 06/25/2024 Jorge Clubb Generalized anxiety disorder F41.1 and Major depressive disorder, recurrent, moderate F33.1 [facility] [place] [address] [place] [address] 07/14/2024 Jorge Clubb Generalized anxiety disorder F41.1 and Major depressive disorder, recurrent, moderate F33.1 [facility] [place] [address] [place] [address] 07/28/2024 Jorge Clubb Generalized anxiety disorder F41.1 and Major depressive disorder, recurrent, moderate F33.1 [facility] [place] [address] [place] [address] 08/20/2024 Jorge Clubb Generalized anxiety disorder F41.1 ; Major depressive disorder, recurrent, moderate F33.1 and Akathisia G25.71 [facility] [place] [address] [place] [address] 09/06/2024 Jorge Clubb Generalized anxiety disorder F41.1 ; Major depressive disorder, recurrent, moderate F33.1 and Akathisia G25.71 [facility] [address] [facility] [address] [place] [address] 12/07/2024 Kendy Espinal Generalized anxiety disorder F41.1 ; Major depressive disorder, recurrent, moderate F33.1 and ADHD (attention deficit hyperactivity disorder), combined type F90.2 [facility] [address] [address] 01/17/2025 Kendy Kylie Encounter for screening for depression Z13.31 ; Encounter for screening for cardiovascular disorders Z13.6 ; Generalized anxiety disorder F41.1 ; Major depressive disorder, recurrent, moderate F33.1 and ADHD (attention deficit hyperactivity disorder), combined type F90.2 [facility] [address] [place] [address] [address] [address] 03/27/2024 Provider Migration [facility] [address] [address] 03/28/2024 Provider Migration [facility] [address] [address] 05/25/2024 Thena Kamila Generalized anxiety disorder F41.1 [facility] [address] [address] 06/21/2024 Thena Kamila Assessments Encounter Date Diagnosis [...] problems. - patient has started taking magnesium vjgr-bpa-wdxwjji with sleep improvement 4. Blood Pressure and [...] problems. - patient has started taking magnesium veyi-yxd-vagprum with sleep improvement 4. Blood Pressure and [...] maintaining maximum efficacy. Plan: - In the [place], aim to have the patient on escitalopram [...] bupropion to 150mg daily for two weeks (extended-releas e tablets). b) Reevaluate in two weeks to determine if discontinuation is appropriate. 5. Sleep Quality - Patient reports approximately 6 hours of sleep nightly but poor quality. - Patient uses CPAP machine. - Plan: a) Recommend trying OTC melatonin (5mg) or magnesium citrate/gluconat e (200mg) at bedtime to improve sleep quality. [...] currently treated - Encourage continued use of non-pharmacologi daquan strategies (e.g., lists, calendars) - Reassess need [...] effects or concerns during medication changes 06/16/2024 Attention-defici t hyperactivity disorder, predominantly inattentive type (ICD-10 - [...] currently treated - Encourage continued use of non-pharmacologi daquan strategies (e.g., lists, calendars) - Reassess need [...] suicidal thoughts. - Recent stressors include 's long-term. - He no longer taking clonazepam. - Overall, he reports being very happy with current treatment plan. 12/07/2024 Generalized anxiety disorder (ICD-10 - F41.1) 01/17/2025 Encounter for screening for depression (ICD-10 - Z13.31) 02/25/2024 Major depressive disorder, recurrent, moderate (ICD-10 - F33.1) 02/26/2024 Major depressive disorder, recurrent, moderate (ICD-10 - F33.1) 02/26/2024 Generalized anxiety disorder (ICD-10 - F41.1) 03/25/2024 Major depressive disorder, recurrent, moderate (ICD-10 - F33.1) 03/25/2024 Generalized anxiety disorder (ICD-10 - F41.1) 03/25/2024 Post-traumatic stress disorder, chronic (ICD-10 - F43.12) 03/25/2024 Attention-defici t hyperactivity disorder, predominantly inattentive type (ICD-10 - F90.0) 12/07/2024 Major depressive disorder, recurrent, moderate (ICD-10 - F33.1) 12/07/2024 ADHD (attention deficit hyperactivity disorder), combined type (ICD-10 - F90.2) Discussed risks/benefits/a lternatives to atomoxetine, including GI side effects, weight loss, irritability, constipation, sexual dysfunction, increase in blood pressure and liver damage. Patient denies any h/o cardiovascular disease, including hypertension, tachyarrhythmias . 01/17/2025 Encounter for screening for cardiovascular disorders (ICD-10 - Z13.6) 06/25/2024 Major depressive disorder, recurrent, moderate (ICD-10 [...] maintaining maximum efficacy. Plan: - [place] aim to have the patient on escitalopram [...] currently treated - Encourage continued use of non-pharmacologi daquan strategies (e.g., lists, calendars) - Reassess need [...] with patient Discussed medication side effects Take alpl-ktw-qhthhfa medication as needed Treatment options reviewed 1. [...] bupropion to 150mg daily for two weeks (extended-releas e tablets). b) Reevaluate in two weeks to determine if discontinuation is appropriate. 5. Sleep Quality - Patient reports approximately 6 hours of sleep nightly but poor quality. - Patient uses CPAP machine. - Plan: a) Recommend trying OTC melatonin (5mg) or magnesium citrate/gluconat e (200mg) at bedtime to improve sleep quality. [...] problems. - patient has started taking magnesium jbmw-xtz-yrghzqb with sleep improvement 4. Blood Pressure and [...] suicidal thoughts. - Recent stressors include 's long-term. - He no longer taking clonazepam. - [...] currently treated - Encourage continued use of non-pharmacologi daquan strategies (e.g., lists, calendars) - Reassess need [...] suicidal thoughts. - Recent stressors include 's long-term. - He no longer taking clonazepam. - Overall, he reports being very happy with current treatment plan. 01/17/2025 Generalized anxiety disorder (ICD-10 - F41.1) 01/17/2025 Major depressive disorder, recurrent, moderate (ICD-10 - F33.1) 01/17/2025 ADHD (attention deficit hyperactivity disorder), combined type (ICD-10 - F90.2) Discussed risks/benefits/a lternatives to atomoxetine, including GI side effects, weight loss, irritability, constipation, sexual dysfunction, increase in blood pressure and liver damage. Patient denies any h/o cardiovascular disease, including hypertension, tachyarrhythmias . 06/16/2024 Other Vortioxetine Oral Tablet (VORTIOXETINE - [...] currently treated - Encourage continued use of non-pharmacologi daquan strategies (e.g., lists, calendars) - Reassess need [...] Return if symptoms worsen and/or persist Take vcws-izw-zlgccps medication as needed Treatment options reviewed. discussed [...] problems. - patient has started taking magnesium ndod-iqa-kiwspcv with sleep improvement 4. Blood Pressure and [...] seek emergency services. discussed crisis prevention hotline 367. 1. Depression - He reports feeling pretty [...] suicidal thoughts. - Recent stressors include 's long-term. - He no longer taking clonazepam. - [...] of psychotropic medications. -Crisis prevention hotline 988. 01/17/2025 Other Increase atomoxetine to 50mg daily [...] -Crisis prevention hotline 988. Plan Of Treatment Next Appt Details Provider Name:Kendy Espinal, 02/28/2025 04:45:00 PM, [address], [facility] [address], [place], [address], Insurance Providers Payer Name Payer Address Payer Phone Subscriber Number Group Number Insured Name Patient Relationship to Insured Coverage Start Date Coverage End Date [facility] [address] [place] [address] [id number] SILVIO, ANNEMARIE Self - patient is the insured [address] [place] [address] [id number] ANNEMARIE ANGUIANO Self - patient is the [...] D deficiency: No chronic fatigue syndrome: No undefined
[2025-01-31 21:05] LABS: Creatine Kinase 275 U/L (55-170)
[2025-01-31 21:07] LABS: Alanine Aminotransferase 37 U/L (6-50); Albumin Level 4.6 g/dL (3.5-5.1); Alkaline Phosphatase 84 U/L (38-126); Anion Gap 9 mmol/L (4-12); Aspartate Amino Transferase 35 U/L (17-59); Bilirubin,Total 0.5 mg/dL (0.2-1.3); Blood Urea Nitrogen 20 mg/dL (9-20); Calcium 9.4 mg/dL (8.4-10.2); Carbon Dioxide 30 mmol/L (22-30); Chloride 101 mmol/L (98-107); Estimated CRCL calculation 74 ml/min; Estimated Glomerular Filt Rate > 60; Glucose 109 mg/dL (65-110); Potassium 3.9 mmol/L (3.4-5.0); Sodium 140 mmol/L (137-145)
[2025-01-31 21:19] LABS: Band Neutrophils Percent 2 % (0-6); Eosinophils Absolute Manual 0.08 K/mm3 (0.02-0.50); Eosinophils Percent Manual 1 % (0-4); Lymphocytes Absolute Manual 2.67 K/mm3 (1.1-4.5); Monocytes Absolute Manual 1.05 K/mm3 (0.1-0.90); Monocytes Percent Manual 13 % (3-9); Neutrophils Absolute Manual 4.29 K/mm3 (1.3-6.7); Neutrophils Percent Manual 51 % (46-73); Platelet Estimate Adequate (Adequate); Schistocytes None Seen; Total Cells Counted 100
[2025-01-31 21:28] LABS: Influenza A QL RT-PCR Negative (Negative); Influenza B QL RT-PCR Negative (Negative); RSV RNA, RT-PCR Negative (Negative); SARS-CoV-2 RNA PCR Negative (Negative)
--- NOTE | 2025-01-31 22:39 | ECG_ITS ---
Test Date: 2025-01-31 22:48:50 Measurements Intervals [place] Rate: 97 P: 12 DC: 152 QRS: -13 QRSD: 89 T: 29 QT: 342 QTc: 435 Interpretive Statements SINUS RHYTHM MINIMAL VOLTAGE CRITERIA FOR LVH, CONSIDER NORMAL VARIANT [MEETS CRITERIA IN ONE OF: R(aVL), S(V1), R(V5), R(V5/V6)+S(V1)] No previous ECG available for comparison Electronically Signed On 02-01-2025 16:04:11 CDT by Sayra Meng M.D.
[2025-01-31 22:41] VITALS: BP 122/98; PULSE 95; RESP 22; TEMP 36.6; O2SAT 96
[2025-01-31 23:13] VITALS: BP 139/90; PULSE 94; RESP 20; O2SAT 100
== END 2025-01-31 23:13 | disposition home or self-care (01) ==
PROVIDERS: Registered Nurse; Emergency Provider Emergency Medicine; PCP Family Medicine
DX: R55 Syncope and collapse (principal); B34.9 Viral infection, unspecified; F41.9 Anxiety disorder, unspecified; F32.A Depression, unspecified
CPT/HCPCS: 36415; 70450; 71046; 71250; 80053; 82550; 85025; 87637; 93005; 99284

== ENCOUNTER 2025-04-28 10:33 | Outpatient (CLI) | payer BC, OTHER, SELFPAY ==
--- NOTE | ~2025-04-28 | XR_ITS ---
Right wrist Technique: PA, oblique, lateral, and ulnar deviation views were obtained. Clinical History: Pain Findings: No acute fracture or dislocation is seen. Osseous alignment is anatomic. Joint spaces are p reserved. Soft tissues are unremarkable. Impression: Unremarkable right wrist radiographs. Reviewed, dictated and finalized at location . Impression: Unremarkable right wrist radiographs.
== END 2025-04-28 10:34 | disposition home or self-care (01) ==
PROVIDERS: PCP Family Medicine; Visit Provider Family Medicine
DX: M25.531 Pain in right wrist (principal); M25.562 Pain in left knee
CPT/HCPCS: 73110; 73562

== ENCOUNTER 2025-08-22 16:00 | Outpatient (CLI) | payer BC, OTHER, SELFPAY ==
--- NOTE | ~2025-08-22 | MR_ITS ---
EXAMINATION: MR cervical spine wo con DATE: 08/22/2025 16:31 INDICATION: Spinal stenosis, cervical region. TECHNIQUE: Magnetic resonance imaging (MRI) of the cervical spine was performed without intravenous contrast. COMPARISON: None FINDINGS: There is 2 mm retrolisthesis of C3 on C4 and 2 mm anterolisthesis of C7 on T1. Vertebral body heights are normal. There is severely decreased disc height at C3-C4, moderately decreased disc height at C4-C5, mildly decreased disc height at C5-C6, and moderately decreased disc height at C6-C7. The spinal cord signal intensity is normal. The following disc levels are specifically discussed: C2-C3: The disc does not extend beyond the endplate margin. There is mild bilateral uncovertebral joint osteoarthritis. There is severe right and mild left facet joint osteoarthritis. There is moderate right neural foraminal stenosis. There is no central canal stenosis. C3-C4: The disc is bulging. There is severe bilateral uncovertebral joint osteoarthritis. There is mild right and moderate left facet joint osteoarthritis. There is moderate bilateral neural foraminal stenosis. There is mild central canal stenosis. C4-C5: The disc is bulging. There is severe bilateral uncovertebral joint osteoarthritis. There is mild bilateral facet joint osteoarthritis. There is moderate bilateral neural foraminal stenosis. There is mild central canal stenosis. C5-C6: The disc is bulging. There is moderate bilateral uncovertebral joint osteoarthritis. There is mild bilateral facet joint osteoarthritis. There is mild bilateral neural foraminal stenosis. There is mild central canal stenosis. C6-C7: The disc is bulging. There is severe bilateral uncovertebral joint osteoarthritis. There is mild bilateral facet joint osteoarthritis. There is moderate right and mild left neural foraminal stenosis. There is mild central canal stenosis. C7-T1: The disc does not extend beyond the endplate margin. There is no uncovertebral joint osteoarthritis. There is severe bilateral facet joint osteoarthritis. There is mild bilateral neural foraminal stenosis. There is no central canal stenosis. IMPRESSION: 1. Severe cervical spondylosis. Reviewed, dictated and finalized at location E.
== END 2025-08-22 16:01 | disposition home or self-care (01) ==
LOC: MICIMG 16:02
PROVIDERS: PCP Family Medicine; Visit Provider Nurse Practitioner Adult Health
DX: M47.812 Spondylosis without myelopathy or radiculopathy, cervical region (principal); M48.02 Spinal stenosis, cervical region
CPT/HCPCS: 72141